=== PATIENT | female | born 1940 | race Caucasian/White ===

== ENCOUNTER 2017-10-04 03:45 | Inpatient (IN) ==
[2017-10-04] MEDS ORDERED: 0.9 % Sodium Chloride 500 ML IVC ONE (04:03)
[2017-10-04 04:14] LABS: Basophils % 0.2 %; Eosinophils # 0.2 K/mcL (0.0-0.6); Eosinophils % 2.8 %; Hematocrit 44.3 % (35.3-44.9); Hemoglobin 13.1 g/dL (11.5-15.4); Immature Granulocytes % 0.2 % (0-4); Lymphocytes # 1.8 K/mcL (0.6-4.6); Lymphocytes % 22.6 %; Mean Corpuscular HGB Conc 29.6 g/dL (31.6-35.5); Mean Corpuscular Hemoglobin 29.2 pg (28.0-33.3); Mean Corpuscular Volume 98.7 fL (83.0-100.0); Mean Platelet Volume 11.5 fL (9.4-12.4); Platelet Count 137 K/mcL (140-400); Red Blood Count 4.49 M/mcL (3.82-4.97); Red Cell Distribution Width 14.1 % (11.5-14.5); Segmented Neutrophils % 62.2 %
[2017-10-04 04:18] LABS: INR 1.5; Prothrombin Time 16.2 Seconds (9.4-12.1)
[2017-10-04 04:20] LABS: Activated Partial Thrombo Time 33.6 Seconds (26.0-36.0)
[2017-10-04 04:25] LABS: BUN/Creatinine Ratio 17 (6-26); Blood Urea Nitrogen 15 mg/dL (7-20); Calcium 11.4 mg/dL (8.6-10.8); Carbon Dioxide 29 mEq/L (19-29); Chloride 105 mEq/L (98-109); Glucose 172 mg/dL (70-99); Osmolality,Calculated 299 (280-300); Sodium 142 mEq/L (136-145); eGFR For African Americans > 60 (> 60); eGFR For Non-African Americans > 60 (> 60)
[2017-10-04 04:26] LABS: Potassium 4.7 mEq/L (3.5-4.5)
[2017-10-04 04:34] LABS: Bilirubin,Urine Negative (Negative); Blood,Urine Small (Negative); Clarity,Urine Turbid (Clear); Color,Urine Yellow (Yellow); Glucose,Urine (UA) Normal (Normal); Ketones,Urine Negative (Negative); Leukocyte Esterase,Urine Large (Negative); Nitrite,Urine Positive (Negative); Protein,Urine Trace mg/dL (Neg-Trace); Specific Gravity,Urine 1.017 (1.010-1.025); Urobilinogen,Urine Normal (Normal)
[2017-10-04 04:37] LABS: Bacteria,Urine Many per hpf (None-Few); Hyaline Casts,Urine None Seen per lpf (None-Few); Squamous Epithelial Cell,Urine Many per lpf (None-Few); WBC,Urine TNTC per hpf (0-3)
--- NOTE | 2017-10-04 04:56 | Emergency Department Note ---
Disposition Clinical Impression: Chest pain Qualifiers: Chest pain type: chest pain on breathing Qualified Code(s): R07.1 - Chest pain on breathing; R07.81 - Pleurodynia UTI (urinary tract infection) Qualifiers: Urinary tract infection type: acute cystitis Hematuria presence: with hematuria Qualified Code(s): N30.01 - Acute cystitis with hematuria Disposition: Admitted As Inpatient Condition: Fair Referrals: NONE,PCP [Non-Partnered Physician] - Forms: ED Satisfaction Letter Time of Disposition: 06:56 Chest Pain HPI - General Chief Complaint: ED Chest Pain Stated Complaint: shortness Time Seen by Provider: 10/04/17 03:51 Source: patient, EMS Mode of arrival: EMS Limitations: no limitations Vital Signs Reviewed: Yes Nursing Notes Reviewed: Yes - History of Present Illness HPI Narrative: 77-year-old female presenting to the emergency department complaining of chest pain and mild shortness of breath. Patient came [facility] She says that she woke up having this chest pain says it was about 4 out of 10 in her chest nonradiating delicate chest pressure. It is worse and she is breathing. Patient is not having the chest pain now. She also has been having a cough for the last few days as well. Patient otherwise is having no complaints. She has a history of CHF and no history of COPD. She is not complaining of any headache , blurry vision, back pain, neck pain, abdominal pain, pain with urination, change in bowel movements, pain or tenderness of the arms or legs, generalized weakness, fevers, chills, nausea, vomiting. Severity scale (1-10): 0 - Related Data Home Medications Medication Instructions Recorded Confirmed Albuterol Sulfate [Albuterol 2 puff IH Q4HR PRN 06/27/15 06/27/15 Inhaler] Canagliflozin [Invokana] 100 mg PO QAM 06/27/15 06/27/15 Furosemide [Lasix] 40 mg PO BID 06/27/15 06/27/15 Insulin Aspart Prot/Insuln Asp 12 - 25 unit SQ TID 06/27/15 06/27/15 [Novolog Mix 70-30 Flexpen Syrn] Insulin Glargine,Hum.rec.anlog 25 unit SQ HS 06/27/15 06/27/15 [Lantus Solostar] Insulin Glargine,Hum.rec.anlog 40 unit SQ QAM 06/27/15 06/27/15 [Lantus Solostar] Loratadine [Claritin] 10 mg PO QAM 06/27/15 06/27/15 Losartan [Cozaar] 50 mg PO QPM 06/27/15 06/27/15 Metoprolol [Lopressor] 12.5 mg PO BID 06/27/15 06/27/15 Multivitamin/Iron/Folic Acid 1 each PO QAM 06/27/15 06/27/15 [Centrum Complete Multivit Tab] Pramlintide Acetate [Symlinpen 120] 120 mcg SQ TID 06/27/15 06/27/15 [place] Oil/[place]-3 Fatty Acids 1,000 mg PO BID 06/27/15 06/27/15 [Fish Oil 500 mg Softgel] TraMADol [Ultram] 50 mg PO Q6HR PRN 06/27/15 06/27/15 Warfarin [Coumadin] 4 mg PO QPM 06/27/15 06/27/15 Previous Rx's Medication Instructions Recorded Doxycycline 100 mg PO BID #20 capsule 06/30/15 Doxycycline 100 mg PO BID #14 capsule 12/27/15 Doxycycline 100 mg PO BID #20 capsule 06/26/16 Allergies Allergy/AdvReac Type Severity Reaction Status Date / Time acetaminophen [From Vicodin] Allergy Hives Verified 06/27/15 18:53 ceftriaxone Allergy Hives Verified 06/27/15 18:53 cephalexin [From Keflex] Allergy Hives Verified 06/27/15 18:53 Erythromycin Base Allergy Hives Verified 06/27/15 18:24 hydrocodone [From Vicodin] Allergy Hives Verified 06/27/15 18:53 levofloxacin [From Levaquin] Allergy Hives Verified 06/27/15 18:53 Oxycodone Allergy Hives Verified 06/27/15 18:53 piperacillin Allergy Hives Verified 06/27/15 18:53 Sulfa (Sulfonamide Allergy Hives Verified 06/27/15 18:53 Antibiotics) vancomycin Allergy Hives Verified 06/27/15 18:24 gabapentin [From Neurontin] AdvReac Unconscious Verified 10/04/17 06:42 Review of Systems: 10 point review of systems done and negative unless otherwise stated in history of present illness. All systems ED: reviewed and negative except as stated. Review of Systems: As Per HPI Chest Pain PMH - Past Medical History Medical history: Reports: arthritis, atrial fibrillation, cancer, CHF, DVT, diabetes, hyperlipidemia, hypertension, thyroid disease Surgical history: Reports: breast surgery, cholecystectomy, orthopedic, other ( Left tib/fib ORIF, left ankle ORIF), other Psychiatric history: Reports: no psych history [employer]QUIPMENT MECH[employer]IC history: Reports: no [employer]MENT MECH[employer]IC history - Social History Smoking Status: Never smoker Alcohol use: Reports: none Drug use: Reports: none Physical Exam - General General appearance: alert - Head Head exam: atraumatic, normocephalic, normal inspection - Eye Eye exam: Present: normal appearance, PERRL, EOMI - ENT ENT exam: normal exam, normal oropharynx, mucous membranes moist - Neck Neck exam: Present: normal inspection, full ROM, trachea midline - Chest Chest inspection: Present: normal inspection, symmetric chest wall rise - Respiratory Respiratory exam: Present: normal lung sounds bilaterally. Absent: respiratory distress, wheezes - Cardiovascular Cardiovascular exam: Present: regular rate, normal rhythm, normal heart sounds - Abdominal Exam Abdominal exam: Present: soft, Non-Tender, normal bowel sounds. Absent: tenderness, distention, guarding, rebound, rigidity - Extremities Exam Extremities exam: Present: normal inspection, full ROM. Absent: tenderness, pedal edema - Back Exam Back exam: Present: normal inspection, full ROM. Absent: tenderness, CVA tenderness (R), CVA tenderness (L) - Neurological Exam Neurological exam: Present: alert, oriented X3 - Skin Skin exam: Present: warm, dry, intact, normal color Course Course Narrative: 77-year-old female presented to the emergency department complaining of chest pain only when she took big deep breaths. We will do basic labs including CBC, BMP, troponin as well as coags. Will get chest x-ray will also get a CT A of the chest. To rule out pulmonary embolism. We will give patient IV fluids as well as to get a urinalysis and EKG. Patient took it this plan. Disposition pending results. Vital Signs Temperature 97.6 F 10/04/17 03:48 Pulse Rate 103 10/04/17 03:48 Respiratory Rate 16 10/04/17 03:48 Blood Pressure 115/83 10/04/17 03:48 O2 Sat by Pulse Oximetry 95 10/04/17 03:48 Temperature 97.6 F 10/04/17 03:48 Pulse Rate 98 10/04/17 06:27 Respiratory Rate 20 10/04/17 06:27 Blood Pressure 119/62 10/04/17 06:27 O2 Sat by Pulse Oximetry 94 10/04/17 06:27 Oxygen Delivery Oxygen Delivery Nasal Cannula Chest Pain - MDM Narrative Medical decision making narrative: 77-year-old female presents to the emergency department complaining of chest pain as well as shortness of breath. Patient said this woke her up. Patient has a history of CHF and no other cardiac issues. We did do basic labs everything came back normal including troponin per she had a mildly elevated BNP low back area than her normal the patient is not fluid overloaded. We did do CT angios of her chest due to the patient's shortness of breath as well as body habitus causing her to be mainly immobile. There was worry for pulmonary and was him although she is on Coumadin. CT of the chest came back normal just showed cardiomegaly. Patient did have positive nitrites and leukocytes esterase on her urine so we are treating her with nitrofurantoin as she is allergic to all other medications. Patient is not having chest pain this time so we did not give her any aspirin or nitroglycerin. Patient otherwise is doing well. Spoke with the hospitalist Dr. Grande he agreed to admit the patient to their service. Due to patient's cardiac history of having heart score of 5 we felt admission was necessary for further evaluation. Patient family agree with this plan. Dr. Grande agreed to accept the patient or service patient is admitted in stable condition. Chest CTA 10/04/17 04:03 IMPRESSION: No evidence for central pulmonary embolus. Evaluation of the peripheral subsegmental vessels are obscured by respiratory motion artifact. D/ / Peewee Camejo MD / Peewee Camejo MD Interpreting Provider: Peewee Camejo MD Chest X-Ray 10/04/17 04:03 IMPRESSION: Cardiomegaly with mild pulmonary vascular congestion. D/ / Sobeida Sauer MD / Sobeida Sauer MD Interpreting Provider: Sobeida Sauer MD - Medical Records Medical records reviewed: Yes I reviewed the patient's medical records. - Lab Data Lab results reviewed: Yes I reviewed the patient's lab results. Result diagrams: 10/04/17 03:38 10/04/17 03:38 Lab Results 10/04/17 10/04/17 10/04/17 Range/Units 03:38 03:38 03:38 WBC 8.1 (4.3-11.1) K/mcL RBC 4.49 (3.82-4.97) M/mcL Hgb 13.1 (11.5-15.4) g/dL Hct 44.3 (35.3-44.9) % MCV 98.7 (83.0-100.0) fL MCH 29.2 (28.0-33.3) pg MCHC 29.6 L (31.6-35.5) g/dL RDW 14.1 (11.5-14.5) % Plt Count 137 L (140-400) K/mcL MPV 11.5 (9.4-12.4) fL Immature Gran % 0.2 (0-4) % Seg Neutrophils % 62.2 % Lymphocytes % 22.6 % Monocytes % 12.0 % Eosinophils % 2.8 % Basophils % 0.2 % Neutrophils # 5.0 (1.6-8.9) K/mcL Lymphocytes # 1.8 (0.6-4.6) K/mcL Monocytes # 1.0 (0.0-1.3) K/mcL Eosinophils # 0.2 (0.0-0.6) K/mcL Basophils # 0.0 (0.0-0.2) K/mcL PT 16.2 H (9.4-12.1) Seconds INR 1.5 APTT 33.6 (26.0-36.0) Seconds Sodium 142 (136-145) mEq/L Potassium 4.7 H (3.5-4.5) mEq/L Chloride 105 (98-109) mEq/L Carbon Dioxide 29 (19-29) mEq/L BUN 15 (7-20) mg/dL Creatinine 0.87 (0.57-1.11) mg/dL Est GFR ( Amer) > 60 (> 60) Est GFR (Non-Af Amer) > 60 (> 60) BUN/Creatinine Ratio 17 (6-26) Glucose 172 H (70-99) mg/dL Calculated Osmolality 299 (280-300) Calcium 11.4 H (8.6-10.8) mg/dL Troponin I (0-0.03) ng/mL B-Natriuretic Peptide (0-100) pg/mL Urine Color (Yellow) Urine Clarity (Clear) Urine pH (5.0-8.0) pH Units Ur Specific [place] (1.010-1.025) Urine Protein (Neg-Trace) mg/dL Urine Glucose (UA) (Normal) mg/dL Urine Ketones (Negative) mg/dL Urine Blood (Negative) Urine Nitrite (Negative) Urine Bilirubin (Negative) Urine Urobilinogen (Normal) mg/dL Ur Leukocyte Esterase (Negative) Urine Microscopic RBC (0-3) per hpf Urine Microscopic WBC (0-3) per hpf Ur Squamous Epith Cells (None-Few) per lpf Urine Bacteria (None-Few) per hpf Hyaline Casts (None-Few) per lpf Ur Culture Indicated? (NO) 10/04/17 10/04/17 10/04/17 Range/Units 03:38 03:38 04:10 WBC (4.3-11.1) K/mcL RBC (3.82-4.97) M/mcL Hgb (11.5-15.4) g/dL Hct (35.3-44.9) % MCV (83.0-100.0) fL MCH (28.0-33.3) pg MCHC (31.6-35.5) g/dL RDW (11.5-14.5) % Plt Count (140-400) K/mcL MPV (9.4-12.4) fL Immature Gran % (0-4) % Seg Neutrophils % % Lymphocytes % % Monocytes % % Eosinophils % % Basophils % % Neutrophils # (1.6-8.9) K/mcL Lymphocytes # (0.6-4.6) K/mcL Monocytes # (0.0-1.3) K/mcL Eosinophils # (0.0-0.6) K/mcL Basophils # (0.0-0.2) K/mcL PT (9.4-12.1) Seconds INR APTT (26.0-36.0) Seconds Sodium (136-145) mEq/L Potassium (3.5-4.5) mEq/L Chloride (98-109) mEq/L Carbon Dioxide (19-29) mEq/L BUN (7-20) mg/dL Creatinine (0.57-1.11) mg/dL Est GFR ( Amer) (> 60) Est GFR (Non-Af Amer) (> 60) BUN/Creatinine Ratio (6-26) Glucose (70-99) mg/dL Calculated Osmolality (280-300) Calcium (8.6-10.8) mg/dL Troponin I 0.01 (0-0.03) ng/mL B-Natriuretic Peptide 345 H (0-100) pg/mL Urine Color Yellow (Yellow) Urine Clarity Turbid A (Clear) Urine pH 6.0 (5.0-8.0) pH Units Ur Specific [place] 1.017 (1.010-1.025) Urine Protein Trace (Neg-Trace) mg/dL Urine Glucose (UA) Normal (Normal) mg/dL Urine Ketones Negative (Negative) mg/dL Urine Blood Small H (Negative) Urine Nitrite Positive A (Negative) Urine Bilirubin Negative (Negative) Urine Urobilinogen Normal (Normal) mg/dL Ur Leukocyte Esterase Large H (Negative) Urine Microscopic RBC 3-5 H (0-3) per hpf Urine Microscopic WBC TNTC H (0-3) per hpf Ur Squamous Epith Cells Many H (None-Few) per lpf Urine Bacteria Many H (None-Few) per hpf Hyaline Casts None Seen (None-Few) per lpf Ur Culture Indicated? NO (NO) - Radiology Data Radiology results reviewed: Yes I reviewed the patient's radiology results. - EKG Data EKG attestation: Yes I reviewed and interpreted this EKG. EKG results narrative: EKG done at 0 347 review myself and the attending shows atrial fibrillation at a rate of 94, QRS was 6, QTC [address] changes, no acute T-wave abnormalities, no signs of any hypertrophy or heart strain, no signs of any heart blocks, no signs of WPW/Brugada syndrome. There is no old EKG to compare with at this time. Heart Score - Score History: Moderately Suspicious EKG: Normal Age: Greater than 65 Risk Factors: Equal/Greater than 3 risk factor or history of atherosclerotic disease Troponin: Less than normal limit HEART Score Total: 5
[2017-10-04] MEDS ORDERED: Ondansetron 4 MG/2 ML VIAL IVP ONE (05:10)
--- NOTE | 2017-10-04 06:01 | Emergency Department Note ---
START Narrative - START START: I examined this patient and my medical decision-making was reviewed with the Resident Physician. I agree with the documented findings, disposition and treatment plan as described except to the extent set forth below. Findings consistent with dyspnea. Symptoms have improved since arrival. Does have nitrite positive urine. We will proceed with admission for evaluation of heart failure versus other causes of dyspnea versus nitrite positive urine with suspicion for urinary tract infection.
[2017-10-04] MEDS ORDERED: Nitrofurantoin (BID) 100 MG CAPSULE PO ONE (06:35)
[2017-10-04] MEDS ORDERED: *HR* Etomidate 20 MG/10 ML AMPUL IVP ONE (07:46)
[2017-10-04] MEDS ORDERED: *HR* Midazolam HCl 5 MG/5 ML VIAL IVP ONE (07:46)
--- NOTE | 2017-10-04 07:47 | Internal Med History&Physical ---
Date of Encounter: 10/04/17 Time of Encounter: 07:44 Assessment and Plan (1) Chest pain Current visit: Yes Status: Acute chest pain despite prolonged chest pain all night long on yet patient troponin negative will scheduled for nuclear stress test Qualifiers: Chest pain type: chest pain on breathing Qualified Code(s): R07.1 - Chest pain on breathing; R07.81 - Pleurodynia (2) UTI (urinary tract infection) Current visit: Yes Status: Acute ua consistent with uti was sent for urine culture as well as Was started on Rocephin Qualifiers: Urinary tract infection type: acute cystitis Hematuria presence: with hematuria Qualified Code(s): N30.01 - Acute cystitis with hematuria (3) Chronic venous stasis dermatitis of both lower extremities Current visit: No Status: Acute Chronic no acute cellulitis (4) Atrial fibrillation Current visit: No Status: Chronic Chronic rate is well controlled patient is already on Coumadin Qualifiers: Atrial fibrillation type: chronic Qualified Code(s): I48.2 - Chronic atrial fibrillation (5) Diabetes Current visit: No Status: Chronic Chronic start on sliding scale and continue home meds Qualifiers: Diabetes mellitus type: type 2 Diabetes mellitus complication status: without complication Diabetes mellitus termite renewal inspector insulin use: unspecified detention insulin use status Qualified Code(s): E11.9 - Type 2 diabetes mellitus without complications (6) Morbid obesity Current visit: No Status: Chronic chronic Internal Medicine - H&P: HPI Chief complaint: chest pain Admitted From: Emergency Dept Plans for Post Hospital Care: Home History of present illness: Ms. Castro is a 77 year old female Patient with multiple medical problem atrial fibrillation, hypertension, morbid obesity, obstructive sleep apnea, diabetes, history of DVT, CK D stage III, chronic venous insufficiency, breast cancer with the mastectomy, PVD. Patient admitted [facility] her skilled nursing [facility] due to chest pain and some shortness of breath. Patient say had chest pain all night long and when she arrived to emergency room placed on oxygen and the chest pain is now completely resolved CTA of the chest was done which showed no pulmonary embolism . troponin negative Past Med Surg Social Fam HX - Past Medical History Medical history: arthritis, atrial fibrillation, cancer, CHF, DVT, diabetes, hyperlipidemia, hypertension, thyroid disease Psychiatric history: no psych history - Past Surgical History Surgical History: breast surgery, cholecystectomy, orthopedic, other (Left tib/ fib ORIF, left ankle ORIF), other - Social History Smoking Status: Never smoker Smokeless Tobacco Status: No Alcohol use: none Drug use: none - Family History Mother Family Member Ethnicity: Non- Living Status: Hx Family Cancer: Yes (breast cancer) Hx Family Endocrine Disorder: No Internal Medicine - H&P: Meds Albuterol Sulfate [Albuterol Inhaler] 2 puff IH Q4HR PRN 06/27/15 [History] Furosemide [Lasix] 40 mg PO BID 06/27/15 [History] Insulin Aspart Prot/Insuln Asp [Novolog Mix 70-30 Flexpen Syrn] 11 - 15 unit SQ QID 06/27/15 [History] Insulin Glargine,Hum.rec.anlog [Lantus Solostar] 10 unit SQ HS 06/27/15 [History ] Insulin Glargine,Hum.rec.anlog [Lantus Solostar] 20 unit SQ QAM 06/27/15 [ History] Loratadine [Claritin] 10 mg PO QAM 06/27/15 [History] Losartan [Cozaar] 50 mg PO QAM 06/27/15 [History] Metoprolol [Lopressor] 12.5 mg PO BID 06/27/15 [History] Multivitamin/Iron/Folic Acid [Centrum Complete Multivit Tab] 1 each PO QAM 06/27 [History] [place] Oil/[place]-3 Fatty Acids [Fish Oil 500 mg Softgel] 1,000 mg PO BID [History] TraMADol [Ultram] 50 mg PO DAILY PRN 06/27/15 [History] Warfarin [Coumadin] 4 mg PO QPM 06/27/15 [History] Ammonium Lactate [Lac-Hydrin Five] 1 appl TP BID PRN 10/04/17 [History] Calcitriol [Rocaltrol] 0.25 mcg PO DAILY 10/04/17 [History] Cyanocobalamin (B-12) [Vitamin B12] 1,000 mcg IM QMONTH 10/04/17 [History] Ketoconazole 2% CRM [Nizoral Cream] 1 appl TP DAILY 10/04/17 [History] Menthol/Zinc Oxide [Calmoseptine Ointment Packet] 1 appl TP BID 10/04/17 [ History] Simvastatin [Zocor] 20 mg PO HS 10/04/17 [History] 3 Allergy/AdvReac Type Severity Reaction Status Date / Time acetaminophen [From Vicodin] Allergy Hives Verified 10/04/17 07:29 ceftriaxone Allergy Hives Verified 10/04/17 07:29 cephalexin [From Keflex] Allergy Hives Verified 10/04/17 07:29 Erythromycin Base Allergy Hives Verified 10/04/17 07:29 hydrocodone [From Vicodin] Allergy Hives Verified 10/04/17 07:29 levofloxacin [From Levaquin] Allergy Hives Verified 10/04/17 07:29 Oxycodone Allergy Hives Verified 10/04/17 07:29 piperacillin Allergy Hives Verified 10/04/17 07:29 Sulfa (Sulfonamide Allergy Hives Verified 10/04/17 07:29 Antibiotics) vancomycin Allergy Hives Verified 10/04/17 07:29 gabapentin [From Neurontin] AdvReac Unconscious Verified 10/04/17 07:29 All Systems PM: A 10-system review of systems was performed and is negative for pertinent findings except as documented above in the HPI. - Constitutional Constitutional: no chills, no fever(s), no night sweats - EENT Eyes: no change in vision, no discharge, no pain, no photophobia Ears: no ear discharge, no ear pain, no tinnitus Nose, mouth and throat: no dysphagia, no nasal discharge, no neck pain, no sore throat - Cardiovascular Cardiovascular ROS IM: chest pain, dyspnea, dyspnea on exertion - Respiratory Respiratory: dyspnea on exertion - Gastrointestinal Gastrointestinal: no abdominal pain, no diarrhea, no hematemesis, no hematochezia, no melena, no nausea, no vomiting - Genitourinary Genitourinary: no change in urinary stream, no dysuria, no flank pain, no hematuria - Musculoskeletal Musculoskeletal ROS IM: no numbness, no tingling - Constitutional Vitals: Temp Pulse Resp BP Pulse Ox 97.6 F 92 20 109/81 94 10/04/17 03:48 10/04/17 07:27 10/04/17 07:27 10/04/17 07:27 10/04/17 07:27 General appearance: Present: mild distress, obese - Neck Neck exam general surgery: Present: supple, trachea midline. Absent: lymphadenopathy - Respiratory Respiratory exam: Present: decreased breath sounds - Cardiovascular Cardiovascular exam: Present: irregular rhythm, systolic murmur - GI/Abdominal GI/Abdominal exam: Present: normal bowel sounds, soft, no peritoneal signs. Absent: distended, tenderness - Extremities Exam Extremities exam: Present: pedal edema, tenderness Internal Med - H&P Results - Labs CBC & Chem 7: 10/04/17 03:38 10/04/17 03:38 Labs: Short CBC 10/04/17 Range/Units 03:38 WBC 8.1 (4.3-11.1) K/mcL Hgb 13.1 (11.5-15.4) g/dL Hct 44.3 (35.3-44.9) % Plt Count 137 L (140-400) K/mcL Neutrophils # 5.0 (1.6-8.9) K/mcL BMP 10/04/17 03:38 Sodium 142 Potassium 4.7 H Chloride 105 Carbon Dioxide 29 BUN 15 Creatinine 0.87 Glucose 172 H Calcium 11.4 H Cardiac Enzymes 10/04/17 Range/Units 03:38 Troponin I 0.01 (0-0.03) ng/mL Urine 10/04/17 Range/Units 04:10 Urine Color Yellow (Yellow) Urine Clarity Turbid A (Clear) Urine pH 6.0 (5.0-8.0) pH Units Ur Specific [place] 1.017 (1.010-1.025) Urine Protein Trace (Neg-Trace) mg/dL Urine Glucose (UA) Normal (Normal) mg/dL - Impressions ITS Impressions Chest CTA 10/04/17 04:03 IMPRESSION: No evidence for central pulmonary embolus. Evaluation of the peripheral subsegmental vessels are obscured by respiratory motion artifact. D/ / Peewee Camejo MD / Peewee Camejo MD Interpreting Provider: Peewee Camejo MD Chest X-Ray 10/04/17 04:03 IMPRESSION: Cardiomegaly with mild pulmonary vascular congestion. D/ / Sobeida Sauer MD / Sobeida Sauer MD Interpreting Provider: Sobeida Sauer MD
[2017-10-04] MEDS ORDERED: Naloxone 0.4 MG/ML INJ IVP PRN ×2 (07:56→19:12)
[2017-10-04] MEDS ORDERED: *HR* Morphine 2 MG/ML SYRINGE IVP PRN ×2 (07:56→19:12)
[2017-10-04] MEDS ORDERED: Mag Hydrox/Al Hydrox/Simeth 30 ML UDC PO PRN ×2 (07:56→19:12)
[2017-10-04] MEDS ORDERED: traMADol 50 MG TABLET PO PRN ×3 (08:00→19:12)
[2017-10-04] MEDS ORDERED: Ammonium Lactate 30 APPL/225 GM BOTTLE TP PRN ×2 (08:00→19:12)
[2017-10-04] MEDS ORDERED: NON-FORMULARY MEDICATION 1 EACH EACH (Cyanocobalamin (B-12) 1,000 MCG) IM SCH (08:00)
[2017-10-04] MEDS ORDERED: Dextrose Gel 15 GM PO PRN ×4 (08:04→19:12)
[2017-10-04] MEDS ORDERED: D5% in Water 1,000 ML IVC PRN ×2 (08:04→19:12)
[2017-10-04] MEDS ORDERED: *HR* Dextrose 50 % in Water (Syg) 50 ML SYRINGE IVP PRN ×2 (08:04→19:12)
[2017-10-04] MEDS ORDERED: cefTRIAXone 1,000 MG in Water for inj. (sterile) 10 ML IVP SCH (09:00)
[2017-10-04] MEDS ORDERED: MENTHOL TP SCH (09:00)
[2017-10-04] MEDS ORDERED: (Salmon Oil/Omega-3 Fatty Acids [Fish Oil 500 Mg Soft) PO SCH (09:00)
[2017-10-04] MEDS ORDERED: Ketoconazole 2% CRM 15 GM TUBE TP SCH (09:00)
[2017-10-04] MEDS ORDERED: Multivit/Ca/Min/Fe/FA 1 TAB TABLET PO SCH (09:00)
[2017-10-04] MEDS ORDERED: ZINC OXIDE TP SCH (09:00)
[2017-10-04] MEDS ORDERED: Loratadine 10 MG TABLET PO SCH (09:00)
[2017-10-04] MEDS ORDERED: Insulin DETEMIR 100 UNIT/ML X5UNITS SQ SCH ×2 (09:30→21:00)
[2017-10-04] MEDS: Furosemide 40 MG/4 ML VIAL IVP SCH ×2 (11:10→17:10)
[2017-10-04] MEDS: Insulin LISPRO 300 UNITS/3 ML VIAL SQ SCH ×3 (11:44→22:57)
[2017-10-04 16:25] LABS: ABG Base Excess 4 mEq/L (-2 to 3); ABG HCO3 38 mEq/L (21-27); ABG Oxygen Saturation 93 % (95-98); ABG PCO2 109 mmHg (35-45); ABG PH 7.15 pH Units (7.32-7.45); ABG PO2 91 mmHg (85-104); ABG TCO2 41 mEq/L (20-26)
--- NOTE | 2017-10-04 16:54 | Pulmonology Consult Note ---
<TianaGelacio Castro - Last Filed: 10/04/17 16:51> Date of Encounter: 10/04/17 Time of Encounter: 16:51 Assessment and Plan (1) Acute respiratory failure with hypercapnia Current Visit: Yes Status: Acute Ms. Castro is a 77 year old female, known history of obstructive sleep apnea requiring BiPAP at night and morbid obesity was seen and evaluated for acute respiratory failure. pH 7.15, PCO2 109, PO2 91, bicarbonate 38. -CT angios the chest did not demonstrate any pulmonary embolism, no obvious focal airspace consolidation, sizable pleural effusion or pneumothorax. Minimal dependent atelectasis appreciated. - Upon evaluation patient required BiPAP to maintain oxygen saturations greater than 90%. Plan: - Transfer to ICU for closer more acute care in the setting of hypercapnic respiratory failure and risk of further decompensation - Continue BiPAP - recheck ABG at 1730 - Keep head of bed elevated for alveolar recruitment. - We will hold blood pressure medications and resume Lasix after patient blood pressure stabilized. (2) Obstructive sleep apnea Current Visit: No Status: Chronic Patient has known history of obstructive sleep apnea likely contributing to chronic hypercarbia and acute respiratory failure. - Continue BiPAP - We will require BiPAP while sleeping and at rest. (3) Chest pain Current Visit: Yes Status: Acute Patient was admitted with complaint of chest pain troponins have been 0.03, 0.01 , 0.01. EKG without significant findings. BNP elevated likely with contributing diastolic heart failure. Patient has no nature fibrillation with regulated rate. Echocardiogram from 2015: Impressions: Technically sub-optimal due to poor echocardiographic windows. LV function is difficult to assess even with the use of Definity echo contrast. LV function appears grossly normal. Estimated LVEF 60%. Not all myocardial segments were well visualized. Indeterminate diastolic function due to atrial fibrillation. Grossly normal RV size and systolic function. Mildly dilated left atrium. Cardiac valves were poorly visualized. No evidence of significant valvular dysfunction. No evidence of pulmonary hypertension. Plan: - EKG repeat - Echocardiogram as last was in 2014 and elevated BNP 345. Qualifiers: Chest pain type: chest pain on breathing Qualified Code(s): R07.1 - Chest pain on breathing; R07.81 - Pleurodynia (4) UTI (urinary tract infection) Current Visit: Yes Status: Acute Urinalysis concerning for urinary tract infection, culture pending. -Continue ceftriaxone IV Qualifiers: Urinary tract infection type: acute cystitis Hematuria presence: with hematuria Qualified Code(s): N30.01 - Acute cystitis with hematuria (5) Atrial fibrillation Current Visit: Yes Status: Chronic Known history of atrial fibrillation on warfarin therapy at home. - INR 1.5 Plan: - Continue rate control - Hold warfarin as patient may need invasive procedure or line placement in the setting of acute respiratory failure. - Continue cardiac monitoring. Qualifiers: Atrial fibrillation type: chronic Qualified Code(s): I48.2 - Chronic atrial fibrillation (6) Diabetes Current Visit: Yes Status: Chronic Patient known type II diabetic glucoses elevated at 172 Plan: - Continue before meals and at bedtime glucose checks - Continue Levemir 20 units in the morning, 10 units at night - Continue medium dose sliding scale. Qualifiers: Diabetes mellitus type: type 2 Diabetes mellitus complication status: without complication Diabetes mellitus manager long term care insulin use: unspecified halfway insulin use status Qualified Code(s): E11.9 - Type 2 diabetes mellitus without complications (7) Morbid obesity Current Visit: Yes Status: Chronic (8) Congestive heart failure Current Visit: Yes Status: Acute Clinical exam concerning for 90s of congestive heart failure, BNP of 345. Previous echocardiogram as described above. Plan: - Hold Lasix in the setting of hypotension - Continue optimizing cardiac medications - Repeat echocardiogram - Strict intake and output monitoring, daily weights, low sodium diet and sodium diabetic diet. (9) DVT prophylaxis Current Visit: Yes Status: Acute Subcutaneous heparin every 8 hours History of Present Illness Consult date: 10/04/17 Requesting physician: Jojo Paez Reason for consult: hypoxemia, obstructive sleep apnea Chief complaint: Acute respiratory failure History of present illness: Ms. Castro is a 77 year old female, Patient with multiple medical problem atrial fibrillation, hypertension, morbid obesity, obstructive sleep apnea, diabetes, history of DVT, CKD stage III, chronic venous insufficiency, breast cancer with the mastectomy, PVD transfer the skilled nursing traditions due to chest pain and shortness of breath. Upon arrival to the emergency department she has placed on nasal cannula oxygen and underwent CT of the chest which did not show any pulmonary embolism or any other acute abnormality. She was transferred to the general medical floor. This evening she demonstrated difficulty with maintaining oxygenation and had altered mental status. An ABG was obtained with a pH 7.15, PCO2 109, PO2 91, bicarbonate 38. She was placed on BiPAP and head of her bed was elevated which resulted in improvement in her oxygenation and mental status. She was still altered upon evaluation, she had family at bedside who says she is supposed to be using her BiPAP at night while sleeping but were unsure of her compliance prior to admission. Past Med Surg Social Fam HX - Past Medical History Medical history: arthritis, atrial fibrillation, cancer, CHF, DVT, diabetes, hyperlipidemia, hypertension, thyroid disease Psychiatric history: no psych history - Past Surgical History Surgical History: breast surgery, cholecystectomy, orthopedic, other (Left tib/ fib ORIF, left ankle ORIF), other - Social History Smoking Status: Never smoker Smokeless Tobacco Status: No Alcohol use: none Drug use: none - Family History Mother Family Member Ethnicity: Non- Living Status: Hx Family Cancer: Yes (breast cancer) Hx Family Endocrine Disorder: No Medications and Allergies Albuterol Sulfate [Albuterol Inhaler] 2 puff IH Q4HR PRN 06/27/15 [History] Furosemide [Lasix] 40 mg PO BID 06/27/15 [History] Insulin Aspart Prot/Insuln Asp [Novolog Mix 70-30 Flexpen Syrn] 11 - 15 unit SQ QID 06/27/15 [History] Insulin Glargine,Hum.rec.anlog [Lantus Solostar] 10 unit SQ HS 06/27/15 [History ] Insulin Glargine,Hum.rec.anlog [Lantus Solostar] 20 unit SQ QAM 06/27/15 [ History] Loratadine [Claritin] 10 mg PO QAM 06/27/15 [History] Losartan [Cozaar] 50 mg PO QAM 06/27/15 [History] Metoprolol [Lopressor] 12.5 mg PO BID 06/27/15 [History] Multivitamin/Iron/Folic Acid [Centrum Complete Multivit Tab] 1 each PO QAM 06/27 [History] [place] Oil/[place]-3 Fatty Acids [Fish Oil 500 mg Softgel] 1,000 mg PO BID [History] TraMADol [Ultram] 50 mg PO DAILY PRN 06/27/15 [History] Warfarin [Coumadin] 4 mg PO QPM 06/27/15 [History] Ammonium Lactate [Lac-Hydrin Five] 1 appl TP BID PRN 10/04/17 [History] Calcitriol [Rocaltrol] 0.25 mcg PO DAILY 10/04/17 [History] Cyanocobalamin (B-12) [Vitamin B12] 1,000 mcg IM QMONTH 10/04/17 [History] Ketoconazole 2% CRM [Nizoral Cream] 1 appl TP DAILY 10/04/17 [History] Menthol/Zinc Oxide [Calmoseptine Ointment Packet] 1 appl TP BID 10/04/17 [ History] Simvastatin [Zocor] 20 mg PO HS 10/04/17 [History] 3 Allergy/AdvReac Type Severity Reaction Status Date / Time acetaminophen [From Vicodin] Allergy Hives Verified 10/04/17 07:29 cephalexin [From Keflex] Allergy Hives Verified 10/04/17 07:29 Erythromycin Base Allergy Hives Verified 10/04/17 07:29 hydrocodone [From Vicodin] Allergy Hives Verified 10/04/17 07:29 levofloxacin [From Levaquin] Allergy Hives Verified 10/04/17 07:29 Oxycodone Allergy Hives Verified 10/04/17 07:29 piperacillin Allergy Hives Verified 10/04/17 07:29 Sulfa (Sulfonamide Allergy Hives Verified 10/04/17 07:29 Antibiotics) vancomycin Allergy Hives Verified 10/04/17 07:29 gabapentin [From Neurontin] AdvReac Unconscious Verified 10/04/17 07:29 ROS unobtainable: due to mental status All Systems: A 10-system review of systems was performed and is negative for pertinent findings except as documented above in the HPI. Physical Examination Vital Signs: Vital Signs, Last 4 Hours Temp Pulse Resp BP Pulse Ox 10/04/17 16:20 27 91 10/04/17 15:48 98.2 F 78 16 95/62 92 General appearance: lethargic, appears uncomfortable, other (morbidly obese. ) Eyes: nonicteric ENT: oropharynx moist Neck: supple Effort: normal Inspection: normal Auscultation: bilateral: clear Percussion: bilateral: not dull Tactile fremitus: bilateral: normal Cardiovascular: irregular rhythm Gastrointestinal: normoactive bowel sounds, non-distended Integumentary: normal Extremities: no cyanosis, no clubbing, edema (Chronic venous stasis changes bilateral.) Musculoskeletal: no deformities, ROM normal normal mental status, non-focal exam mood appropriate, affect normal Results - Laboratory Findings CBC and BMP: 10/04/17 03:38 10/04/17 03:38 ABG ABG pH 7.15 pH Units (7.32-7.45) L* 10/04/17 16:07 ABG pCO2 109 mmHg (35-45) H* 10/04/17 16:07 ABG pO2 91 mmHg (85-104) 10/04/17 16:07 ABG O2 Saturation 93 % (95-98) L 10/04/17 16:07 PT/INR, D-dimer PT 16.2 Seconds (9.4-12.1) H 10/04/17 03:38 Abnormal lab findings: Abnormal lab results MCHC 29.6 g/dL (31.6-35.5) L 10/04/17 03:38 Plt Count 137 K/mcL (140-400) L 10/04/17 03:38 PT 16.2 Seconds (9.4-12.1) H 10/04/17 03:38 ABG pH 7.15 pH Units (7.32-7.45) L* 10/04/17 16:07 ABG pCO2 109 mmHg (35-45) H* 10/04/17 16:07 ABG HCO3 38 mEq/L (21-27) H 10/04/17 16:07 ABG Total CO2 41 mEq/L (20-26) H 10/04/17 16:07 ABG O2 Saturation 93 % (95-98) L 10/04/17 16:07 ABG Base Excess 4 mEq/L (-2 to 3) H 10/04/17 16:07 Potassium 4.7 mEq/L (3.5-4.5) H 10/04/17 03:38 Glucose 172 mg/dL (70-99) H 10/04/17 03:38 Calcium 11.4 mg/dL (8.6-10.8) H 10/04/17 03:38 B-Natriuretic Peptide 345 pg/mL (0-100) H 10/04/17 03:38 Urine Clarity Turbid (Clear) A 10/04/17 04:10 Urine Blood Small (Negative) H 10/04/17 04:10 Urine Nitrite Positive (Negative) A 10/04/17 04:10 Ur Leukocyte Esterase Large (Negative) H 10/04/17 04:10 Urine Microscopic RBC 3-5 per hpf (0-3) H 10/04/17 04:10 Urine Microscopic WBC TNTC per hpf (0-3) H 10/04/17 04:10 Ur Squamous Epith Cells Many per lpf (None-Few) H 10/04/17 04:10 Urine Bacteria Many per hpf (None-Few) H 10/04/17 04:10 - Clinical Findings Intake & Output: Intake & Output 10/04/17 10/04/17 10/04/17 07:59 15:59 23:59 Intake Total 0 / 0 Output Total 0 / 0 200 / 200 Balance 0 / 0 -200 / -200 Consult Discharge Plan - Plan Referrals: Bradly Cuellar [Primary Care Provider] - <Yamil Dior - Last Filed: 10/04/17 21:22> Date of Encounter: 10/04/17 All Systems: A 10-system review of systems was performed and is negative for pertinent findings except as documented above in the HPI. Physical Examination Vital Signs: Vital Signs, Last 4 Hours Temp Pulse Resp BP Pulse Ox 10/04/17 18:30 10 97 10/04/17 16:20 27 91 10/04/17 15:48 98.2 F 78 16 95/62 92 Results - Laboratory Findings CBC and BMP: 10/04/17 03:38 10/04/17 03:38 ABG ABG pH 7.18 pH Units (7.32-7.45) L* 10/04/17 17:39 ABG pCO2 105 mmHg (35-45) H* 10/04/17 17:39 ABG pO2 88 mmHg (85-104) 10/04/17 17:39 ABG O2 Saturation 93 % (95-98) L 10/04/17 17:39 PT/INR, D-dimer PT 16.2 Seconds (9.4-12.1) H 10/04/17 03:38 Abnormal lab findings: Abnormal lab results MCHC 29.6 g/dL (31.6-35.5) L 10/04/17 03:38 Plt Count 137 K/mcL (140-400) L 10/04/17 03:38 PT 16.2 Seconds (9.4-12.1) H 10/04/17 03:38 ABG pH 7.18 pH Units (7.32-7.45) L* 10/04/17 17:39 ABG pCO2 105 mmHg (35-45) H* 10/04/17 17:39 ABG HCO3 39 mEq/L (21-27) H 10/04/17 17:39 ABG Total CO2 42 mEq/L (20-26) H 10/04/17 17:39 ABG O2 Saturation 93 % (95-98) L 10/04/17 17:39 ABG Base Excess 6 mEq/L (-2 to 3) H 10/04/17 17:39 Potassium 4.7 mEq/L (3.5-4.5) H 10/04/17 03:38 Glucose 172 mg/dL (70-99) H 10/04/17 03:38 POC Glucose 163 (58-89) H 10/04/17 18:57 Calcium 11.4 mg/dL (8.6-10.8) H 10/04/17 03:38 B-Natriuretic Peptide 345 pg/mL (0-100) H 10/04/17 03:38 Urine Clarity Turbid (Clear) A 10/04/17 04:10 Urine Blood Small (Negative) H 10/04/17 04:10 Urine Nitrite Positive (Negative) A 10/04/17 04:10 Ur Leukocyte Esterase Large (Negative) H 10/04/17 04:10 Urine Microscopic RBC 3-5 per hpf (0-3) H 10/04/17 04:10 Urine Microscopic WBC TNTC per hpf (0-3) H 10/04/17 04:10 Ur Squamous Epith Cells Many per lpf (None-Few) H 10/04/17 04:10 Urine Bacteria Many per hpf (None-Few) H 10/04/17 04:10 - Clinical Findings Intake & Output: Intake & Output 10/04/17 10/04/17 10/04/17 07:59 15:59 23:59 Intake Total 0 / 0 Output Total 0 / 0 200 / 200 Balance 0 / 0 -200 / -200 - Attending Attestation I saw the patient with the resident agree with History and Physical exam findings. Labs and Radiology were reviewed BIPAP data reviewed RESPONDER: Patient is lethargic arousable follows commands most likey due to metabolic encpehalopathy slowly her mental status improving NECK : No JVD appreciated Pulmonary : Patient is hypoxic and hypercarbic with BIPAP 18/8 slowly improving hypoxia lot better wean FIO2 to to SPO2 of 92% to continue diuresing her , no obvious large PE difficult to evaluate sub segmental PE , no evidence of air space disease Cardiac : Hemodynamically stable , ECHO 2014 showed diastolic dysfunction will repeat ECHO will diurese as tolerated Nutrition/GI: NPO PPI prophylaxis Renal : Labs reviewed Heme onc : No acute issues Endo: Diabetes on insulin Musculo skeletal / skin issues Has chronic lymphedema Disposition : To remain in ICU critically ill Code status: Full Code Family/POA: Daughter Spent 35 minutes of Critical care time in managing vital organ function and to prevent further decline .
[2017-10-04] MEDS ORDERED: Acetaminophen 325 MG TABLET PO PRN ×2 (17:07→19:12)
[2017-10-04] MEDS ORDERED: Ondansetron 4 MG/2 ML VIAL IVP PRN ×2 (17:07→19:12)
[2017-10-04] MEDS ORDERED: *HR* Heparin 5,000 UNIT/ML VIAL SQ SCH (17:30)
[2017-10-04 17:43] LABS: ABG Base Excess 6 mEq/L (-2 to 3); ABG HCO3 39 mEq/L (21-27); ABG Oxygen Saturation 93 % (95-98); ABG PCO2 105 mmHg (35-45); ABG PH 7.18 pH Units (7.32-7.45); ABG PO2 88 mmHg (85-104); ABG TCO2 42 mEq/L (20-26)
[2017-10-04] MEDS ORDERED: Warfarin perPT PO PRN (18:00)
[2017-10-04] MEDS ORDERED: *HR* Warfarin 4 MG TABLET PO SCH (18:00)
[2017-10-04] MEDS ORDERED: Ipratropium/Albuterol Neb 3 ML IH SCH (20:00)
[2017-10-04 20:20] LABS: ABG Base Excess 5 mEq/L (-2 to 3); ABG HCO3 38 mEq/L (21-27); ABG Oxygen Saturation 97 % (95-98); ABG PCO2 103 mmHg (35-45); ABG PH 7.17 pH Units (7.32-7.45); ABG PO2 116 mmHg (85-104); ABG TCO2 41 mEq/L (20-26)
[2017-10-04] MEDS: Ipratropium/Albuterol Neb 3 ML IH SCH ×2 (20:23→23:24)
[2017-10-04 20:36] LABS: Bilirubin,Urine Negative (Negative); Blood,Urine Negative (Negative); Clarity,Urine Clear (Clear); Color,Urine Yellow (Yellow); Glucose,Urine (UA) Normal (Normal); Ketones,Urine Negative (Negative); Leukocyte Esterase,Urine Small (Negative); Nitrite,Urine Negative (Negative); Protein,Urine Negative (Neg-Trace); Urobilinogen,Urine Normal (Normal)
[2017-10-04 20:39] LABS: Bacteria,Urine None Seen per hpf (None-Few); Hyaline Casts,Urine None Seen per lpf (None-Few); RBC,Urine 0-3 per hpf (0-3); Squamous Epithelial Cell,Urine Many per lpf (None-Few)
[2017-10-04] MEDS ORDERED: Insulin LISPRO 300 UNITS/3 ML VIAL SQ SCH (21:00)
[2017-10-04] MEDS ORDERED: Furosemide 40 MG/4 ML VIAL IVP ONE (21:08)
[2017-10-04] MEDS: Insulin DETEMIR 100 UNIT/ML X5UNITS SQ SCH (22:56)
[2017-10-04 23:13] LABS: ABG Base Excess 7 mEq/L (-2 to 3); ABG HCO3 40 mEq/L (21-27); ABG Oxygen Saturation 98 % (95-98); ABG PCO2 110 mmHg (35-45); ABG PH 7.17 pH Units (7.32-7.45); ABG PO2 133 mmHg (85-104); ABG TCO2 44 mEq/L (20-26)
[2017-10-05] MEDS ORDERED: *HR* Midazolam HCl 2 MG/2 ML VIAL IV ONE (00:05)
[2017-10-05] MEDS ORDERED: Lacri-Lube 3.5 GM TUBE BOTH EYES PRN (00:05)
[2017-10-05] MEDS ORDERED: *HR* Midazolam HCl 5 MG/5 ML VIAL IVP ONE (00:20)
[2017-10-05] MEDS ORDERED: *HR* Midazolam HCl 2 MG/2 ML VIAL IVP ONE (00:23)
[2017-10-05] MEDS: FentaNYL (PF) 1,000 MCG in 0.9 % Sodium Chloride 80 ML IVC SCH ×2 (00:39→14:44)
--- NOTE | 2017-10-05 01:12 | Event Note ---
Date of Encounter: 10/05/17 Time of Encounter: 01:11 Had to be intubated for persistent hypercarbia CO2 narcosis Unable to follow commands Emergent intubation
[2017-10-05 01:20] LABS: ABG Base Excess 9 mEq/L (-2 to 3); ABG HCO3 37 mEq/L (21-27); ABG Oxygen Saturation 92 % (95-98); ABG PCO2 70 mmHg (35-45); ABG PH 7.34 pH Units (7.32-7.45); ABG PO2 69 mmHg (85-104); ABG TCO2 39 mEq/L (20-26); Blood Gas Modality VC; Blood Gas VT 8 cc
--- NOTE | 2017-10-05 02:25 | Event Note ---
<Bubba Aranda - Last Filed: 10/05/17 02:18> Date of Encounter: 10/05/17 Time of Encounter: 10:11 Date: 10/04/17 Time: 22:11 Indication: IV access, altered mental status Resident: Bubba Aranda D.O. Attending: Kenan Jaffe M.D. A time-out was performed verifying correct patient, procedure, site, positioning and equipment needed. The patient was placed in slight trendelenburg position while remaining on BiPAP. The right neck was prepped and draped in normal sterile fashion. Ultrasound guidance was used during the entire procedure. 1% Lidocaine was used to anesthetize the surround skin. A 16cm triple lumen catheter was introduced into the right internal jugular vein using the Seldinger technique and under direct ultrasound guidance. The catheter was threaded smoothly over the guide wire and dark venous blood was easily obtained. Each of the 3 previously flushed lumens were easily aspirated and flushed with sterile saline. The catheter was then sutured in place and a sterile dressing was placed over the area. CXR obtained after the procedure showed the catheter to be in good position with no pneumothorax. The patient tolerated the procedure well without any immediate complications. EBL: 5cc <Kenan Jaffe - Last Filed: 10/05/17 02:31> Date of Encounter: 10/05/17 Attestation Statement - Attestation Attestation: Procedure note: Central line placement requested by the hospitalist. Dr. Aranda placed the right IJ central line with ultrasound guidance under my direct supervision. No difficulties or complication.
[2017-10-05 04:12] LABS: Hematocrit 41.7 % (35.3-44.9); Hemoglobin 12.3 g/dL (11.5-15.4); Mean Corpuscular HGB Conc 29.5 g/dL (31.6-35.5); Mean Corpuscular Hemoglobin 29.8 pg (28.0-33.3); Mean Platelet Volume 11.8 fL (9.4-12.4); Platelet Count 137 K/mcL (140-400); Red Blood Count 4.13 M/mcL (3.82-4.97); Red Cell Distribution Width 14.2 % (11.5-14.5)
[2017-10-05 04:25] LABS: BUN/Creatinine Ratio 18 (6-26); Blood Urea Nitrogen 15 mg/dL (7-20); Calcium 10.8 mg/dL (8.6-10.8); Carbon Dioxide 34 mEq/L (19-29); Chloride 102 mEq/L (98-109); Chol/HDL Ratio 3.2 (0-4.9); Cholesterol 94 mg/dL (< 200); Glucose 106 mg/dL (70-99); HDL Cholesterol 29 mg/dL (40-59); LDL Cholesterol,Calculated 50 mg/dL (0-99); Magnesium 1.6 mg/dL (1.6-2.6); Osmolality,Calculated 299 (280-300); Potassium 3.7 mEq/L (3.5-4.5); Sodium 144 mEq/L (136-145); Triglycerides 74 mg/dL (< 150); eGFR For African Americans > 60 (> 60); eGFR For Non-African Americans > 60 (> 60)
[2017-10-05] MEDS: Ipratropium/Albuterol Neb 3 ML IH SCH ×6 (04:31→23:32)
[2017-10-05 04:33] LABS: ABG Base Excess 12 mEq/L (-2 to 3); ABG HCO3 38 mEq/L (21-27); ABG Oxygen Saturation 93 % (95-98); ABG PCO2 52 mmHg (35-45); ABG PH 7.47 pH Units (7.32-7.45); ABG PO2 64 mmHg (85-104); ABG TCO2 39 mEq/L (20-26); Blood Gas Modality VC; Blood Gas PEEP 5 cm H2O; Blood Gas Respiration Rate 16; Blood Gas VT 500 cc
[2017-10-05] MEDS: Lacri-Lube 3.5 GM TUBE BOTH EYES SCH ×5 (04:39→21:07)
[2017-10-05] MEDS: Famotidine 20 MG/2 ML VIAL IVP SCH ×2 (05:23→18:18)
[2017-10-05] MEDS: *HR* Enoxaparin 40 MG/0.4 ML SYRINGE SQ SCH (05:23)
--- NOTE | 2017-10-05 06:58 | Pulmonology Progress Note ---
<OzziereaganGelacio - Last Filed: 10/05/17 10:49> Date of Encounter: 10/05/17 Time of Encounter: 06:57 Assessment and Plan (1) Acute respiratory failure with hypercapnia Current Visit: Yes Status: Acute Ms. Castro is a 77 year old female, known history of obstructive sleep apnea requiring BiPAP at night and morbid obesity was seen and evaluated for acute respiratory failure. In the late evening of 10/04/2017 her story status is not improving, CO2 elevated to 110 she required intubation and a central line to the right internal jugular. -CT angios the chest did not demonstrate any pulmonary embolism, no obvious focal airspace consolidation, sizable pleural effusion or pneumothorax. Minimal dependent atelectasis appreciated. 10/05: Patient intubated, sedated on mechanical ventilation initial blood gas this morning pH 7.47, PCO2 52, PO2 64, bicarbonate 38, oxygen saturation 93%. Chest x-ray demonstrates appropriate placement of IJ line, endotracheal tube. It is also diffuse pulmonary edema correlating with congestive heart failure exacerbation. Plan: -Continue with mechanical ventilation wean FiO2 as tolerated, plan for CPAP trial tomorrow. - Recheck ABG after adjustment of vent settings as the patient demonstrates alkalosis. - Keep head of bed elevated for alveolar recruitment. - 40 mg IV Lasix twice a day (2) Obstructive sleep apnea Current Visit: No Status: Chronic Patient has known history of obstructive sleep apnea likely contributing to chronic hypercarbia and acute respiratory failure. - Continue mechanical ventilation will require CPAP after extubation. (3) Chest pain Current Visit: Yes Status: Acute Patient was admitted with complaint of chest pain troponins have been 0.03, 0.01 , 0.01. EKG without significant findings. BNP elevated likely with contributing diastolic heart failure. Patient has no nature fibrillation with regulated rate. Echocardiogram from 2015: Impressions: Technically sub-optimal due to poor echocardiographic windows. LV function is difficult to assess even with the use of Definity echo contrast. LV function appears grossly normal. Estimated LVEF 60%. Not all myocardial segments were well visualized. Indeterminate diastolic function due to atrial fibrillation. Grossly normal RV size and systolic function. Mildly dilated left atrium. Cardiac valves were poorly visualized. No evidence of significant valvular dysfunction. No evidence of pulmonary hypertension. Plan: - Continue to monitor. Qualifiers: Chest pain type: chest pain on breathing Qualified Code(s): R07.1 - Chest pain on breathing; R07.81 - Pleurodynia (4) UTI (urinary tract infection) Current Visit: Yes Status: Acute Urinalysis concerning for urinary tract infection, culture pending. -Continue ceftriaxone IV Qualifiers: Urinary tract infection type: acute cystitis Hematuria presence: with hematuria Qualified Code(s): N30.01 - Acute cystitis with hematuria (5) Atrial fibrillation Current Visit: Yes Status: Chronic Known history of atrial fibrillation on warfarin therapy at home. Plan: - Continue rate control - Continue to hold warfarin. - Continue cardiac monitoring. Qualifiers: Atrial fibrillation type: chronic Qualified Code(s): I48.2 - Chronic atrial fibrillation (6) Diabetes Current Visit: Yes Status: Chronic Patient known type II diabetic. Plan: - Q6hr glucose checks. - Continue medium dose sliding scale. Qualifiers: Diabetes mellitus type: type 2 Diabetes mellitus complication status: without complication Diabetes mellitus senior care insulin use: unspecified senior care insulin use status Qualified Code(s): E11.9 - Type 2 diabetes mellitus without complications (7) Morbid obesity Current Visit: Yes Status: Chronic Likely contributing to current medical problems. (8) Congestive heart failure Current Visit: Yes Status: Acute Likely congestive heart failure exacerbation, echocardiogram pending for evaluation. Patient demonstrates pulmonary edema likely contributing to her worsening hypercarbic respiratory failure. Plan: - Lasix 40 mg IV twice a day - Continue Lopressor - Patient intubated and sedated we will hold statin and aspirin. Qualifiers: Qualified Code(s): I50.9 - Heart failure, unspecified (9) DVT prophylaxis Current Visit: Yes Status: Acute Subcutaneous heparin Subjective Principal diagnosis: Acute respiratory failure Interval history: Mrs. Castro is been seen and evaluated patient bedside this morning. Overnight she demonstrated worsening of respiratory status requiring endotracheal tube intubation and right internal jugular central line. She is currently mechanical ventilated and tolerating this well. Objective PUL Vital signs: Last Vital Signs Temp 98.9 F 10/05/17 04:00 Pulse 84 10/05/17 06:00 Resp 16 10/05/17 06:00 BP 114/74 10/05/17 06:00 Pulse Ox 95 10/05/17 06:00 General appearance: no acute distress Eyes: nonicteric ENT: oropharynx moist Neck: supple Effort: other (Mechanical ventilation, diffuse rhonchi) Cardiovascular: irregular rhythm Gastrointestinal: normoactive bowel sounds, non-distended Integumentary: normal Extremities: no cyanosis, edema (Bilateral lower extremity ) unable to assess due to mental status Ventilator Settings Ventilator Settings: Ventilator Settings, Last 8 Hours Ventilator Mode VC+ Ventilator Mode VC+ Ventilator Mode VC+ Ventilator Mode VC+ Ventilator Mode VC+ Ventilator Mode VC+ Ventilator Mode VC+ Ventilator Mode VC+ Ventilator Mode VC+ Ventilator Mode VC+ Ventilator Mode VC+ Ventilator Mode VC+ Ventilator Mode VC+ Ventilator Tidal Volume 500 Setting Ventilator Tidal Volume 500 Setting Ventilator Tidal Volume 500 Setting Ventilator Tidal Volume 500 Setting Ventilator Tidal Volume 500 Setting Ventilator Tidal Volume 500 Setting Ventilator Tidal Volume 500 Setting Ventilator Tidal Volume 500 Setting Ventilator Tidal Volume 500 Setting Ventilator Tidal Volume 500 Setting Ventilator Tidal Volume 500 Setting Ventilator Tidal Volume 500 Setting Ventilator Tidal Volume 500 Setting Ventilator Respiratory Rate 16 Setting Ventilator Respiratory Rate 16 Setting Ventilator Respiratory Rate 16 Setting Ventilator Respiratory Rate 16 Setting Ventilator Respiratory Rate 16 Setting Ventilator Respiratory Rate 16 Setting Ventilator Respiratory Rate 16 Setting Ventilator Respiratory Rate 16 Setting Ventilator Respiratory Rate 16 Setting Ventilator Respiratory Rate 16 Setting Ventilator Respiratory Rate 16 Setting Ventilator Respiratory Rate 16 Setting Ventilator Respiratory Rate 16 Setting Actual Respiratory Rate 16 Actual Respiratory Rate 16 Actual Respiratory Rate 16 Actual Respiratory Rate 16 Actual Respiratory Rate 16 Actual Respiratory Rate 16 Actual Respiratory Rate 16 Actual Respiratory Rate 17 Actual Respiratory Rate 16 Actual Respiratory Rate 16 Actual Respiratory Rate 16 Positive End Expiratory 5 Pressure Positive End Expiratory 5 Pressure Positive End Expiratory 5 Pressure Positive End Expiratory 5 Pressure Positive End Expiratory 5 Pressure Positive End Expiratory 5 Pressure Positive End Expiratory 5 Pressure Positive End Expiratory 5 Pressure Positive End Expiratory 5 Pressure Positive End Expiratory 5 Pressure Positive End Expiratory 5 Pressure Positive End Expiratory 5 Pressure Positive End Expiratory 5 Pressure Peak Inspiratory Airway 26 Pressure Peak Inspiratory Airway 23 Pressure Peak Inspiratory Airway 24 Pressure Peak Inspiratory Airway 27 Pressure Peak Inspiratory Airway 25 Pressure Peak Inspiratory Airway 25 Pressure Peak Inspiratory Airway 25 Pressure Peak Inspiratory Airway 24 Pressure Peak Inspiratory Airway 25 Pressure Peak Inspiratory Airway 28 Pressure Peak Inspiratory Airway 36 Pressure Results - Laboratory Findings CBC and BMP: 10/05/17 03:45 10/05/17 03:45 ABG ABG pH 7.47 pH Units (7.32-7.45) H D 10/05/17 04:29 ABG pCO2 52 mmHg (35-45) H 10/05/17 04:29 ABG pO2 64 mmHg (85-104) L 10/05/17 04:29 ABG O2 Saturation 93 % (95-98) L 10/05/17 04:29 PT/INR, D-dimer PT 16.2 Seconds (9.4-12.1) H 10/04/17 03:38 Abnormal lab findings: Abnormal lab results MCV 101.0 fL (83.0-100.0) H 10/05/17 03:45 MCHC 29.5 g/dL (31.6-35.5) L 10/05/17 03:45 Plt Count 137 K/mcL (140-400) L 10/05/17 03:45 PT 16.2 Seconds (9.4-12.1) H 10/04/17 03:38 ABG pH 7.47 pH Units (7.32-7.45) H D 10/05/17 04:29 ABG pCO2 52 mmHg (35-45) H 10/05/17 04:29 ABG pO2 64 mmHg (85-104) L 10/05/17 04:29 ABG HCO3 38 mEq/L (21-27) H 10/05/17 04:29 ABG Total CO2 39 mEq/L (20-26) H 10/05/17 04:29 ABG O2 Saturation 93 % (95-98) L 10/05/17 04:29 ABG Base Excess 12 mEq/L (-2 to 3) H 10/05/17 04:29 Carbon Dioxide 34 mEq/L (19-29) H 10/05/17 03:45 Glucose 106 mg/dL (70-99) H 10/05/17 03:45 POC Glucose 163 (58-89) H 10/04/17 18:57 B-Natriuretic Peptide 345 pg/mL (0-100) H 10/04/17 03:38 HDL Cholesterol 29 mg/dL (40-59) L 10/05/17 03:45 Ur Leukocyte Esterase Small (Negative) H 10/04/17 16:20 Urine Microscopic WBC 5-15 per hpf (0-3) H 10/04/17 16:20 Ur Squamous Epith Cells Many per lpf (None-Few) H 10/04/17 16:20 - Clinical Findings Intake & Output: Intake & Output 10/04/17 10/04/17 10/05/17 15:59 23:59 07:59 Intake Total 0 / 0 0 / 0 13.4 / 13.4 Output Total 0 / 0 200 / 200 2420 / 2420 Balance 0 / 0 -200 / -200 -2406.6 / -2406.6 Weight 150.3 kg Consult Discharge Plan - Plan Referrals: Bradly Cuellar [Primary Care Provider] - <Yamil Dior - Last Filed: 10/05/17 22:39> Date of Encounter: 10/05/17 Objective PUL Vital signs: Last Vital Signs Temp 99.9 F H 10/05/17 20:40 Pulse 106 10/05/17 22:00 Resp 16 10/05/17 22:00 BP 126/62 10/05/17 22:00 Pulse Ox 97 10/05/17 22:00 Ventilator Settings Ventilator Settings: Ventilator Settings, Last 8 Hours Ventilator Mode VC+ Ventilator Mode VC+ Ventilator Mode VC+ Ventilator Mode VC+ Ventilator Mode VC+ Ventilator Mode VC+ Ventilator Mode VC+ Ventilator Mode VC+ Ventilator Mode VC+ Ventilator Mode VC+ Ventilator Mode VC+ Ventilator Mode VC+ Ventilator Tidal Volume 400 Setting Ventilator Tidal Volume 400 Setting Ventilator Tidal Volume 400 Setting Ventilator Tidal Volume 400 Setting Ventilator Tidal Volume 400 Setting Ventilator Tidal Volume 400 Setting Ventilator Tidal Volume 400 Setting Ventilator Tidal Volume 400 Setting Ventilator Tidal Volume 400 Setting Ventilator Tidal Volume 400 Setting Ventilator Tidal Volume 400 Setting Ventilator Tidal Volume 400 Setting Ventilator Respiratory Rate 16 Setting Ventilator Respiratory Rate 16 Setting Ventilator Respiratory Rate 16 Setting Ventilator Respiratory Rate 16 Setting Ventilator Respiratory Rate 16 Setting Ventilator Respiratory Rate 16 Setting Ventilator Respiratory Rate 16 Setting Ventilator Respiratory Rate 16 Setting Ventilator Respiratory Rate 16 Setting Ventilator Respiratory Rate 16 Setting Ventilator Respiratory Rate 16 Setting Ventilator Respiratory Rate 16 Setting Actual Respiratory Rate 16 Actual Respiratory Rate 16 Actual Respiratory Rate 16 Actual Respiratory Rate 16 Actual Respiratory Rate 17 Actual Respiratory Rate 16 Actual Respiratory Rate 16 Actual Respiratory Rate 16 Actual Respiratory Rate 17 Actual Respiratory Rate 16 Actual Respiratory Rate 16 Actual Respiratory Rate 16 Positive End Expiratory 5 Pressure Positive End Expiratory 5 Pressure Positive End Expiratory 5 Pressure Positive End Expiratory 5 Pressure Positive End Expiratory 5 Pressure Positive End Expiratory 5 Pressure Positive End Expiratory 5 Pressure Positive End Expiratory 5 Pressure Positive End Expiratory 5 Pressure Positive End Expiratory 5 Pressure Positive End Expiratory 5 Pressure Positive End Expiratory 5 Pressure Peak Inspiratory Airway 25 Pressure Peak Inspiratory Airway 23 Pressure Peak Inspiratory Airway 22 Pressure Peak Inspiratory Airway 22 Pressure Peak Inspiratory Airway 22 Pressure Peak Inspiratory Airway 22 Pressure Peak Inspiratory Airway 21 Pressure Peak Inspiratory Airway 21 Pressure Peak Inspiratory Airway 20 Pressure Peak Inspiratory Airway 21 Pressure Peak Inspiratory Airway 21 Pressure Peak Inspiratory Airway 22 Pressure Results - Laboratory Findings CBC and BMP: 10/05/17 03:45 12/19/17 03:45 ABG ABG pH 7.47 pH Units (7.32-7.45) H 10/05/17 11:31 ABG pCO2 54 mmHg (35-45) H 10/05/17 11:31 ABG pO2 64 mmHg (85-104) L 10/05/17 11:31 ABG O2 Saturation 93 % (95-98) L 10/05/17 11:31 PT/INR, D-dimer PT 16.2 Seconds (9.4-12.1) H 10/04/17 03:38 Abnormal lab findings: Abnormal lab results MCV 101.0 fL (83.0-100.0) H 10/05/17 03:45 MCHC 29.5 g/dL (31.6-35.5) L 10/05/17 03:45 Plt Count 137 K/mcL (140-400) L 10/05/17 03:45 PT 16.2 Seconds (9.4-12.1) H 10/04/17 03:38 ABG pH 7.47 pH Units (7.32-7.45) H 10/05/17 11:31 ABG pCO2 54 mmHg (35-45) H 10/05/17 11:31 ABG pO2 64 mmHg (85-104) L 10/05/17 11:31 ABG HCO3 39 mEq/L (21-27) H 10/05/17 11:31 ABG Total CO2 40 mEq/L (20-26) H 10/05/17 11:31 ABG O2 Saturation 93 % (95-98) L 10/05/17 11:31 ABG Base Excess 13 mEq/L (-2 to 3) H 10/05/17 11:31 Carbon Dioxide 34 mEq/L (19-29) H 10/05/17 03:45 Glucose 106 mg/dL (70-99) H 10/05/17 03:45 POC Glucose 129 (58-89) H 10/05/17 18:23 B-Natriuretic Peptide 345 pg/mL (0-100) H 10/04/17 03:38 HDL Cholesterol 29 mg/dL (40-59) L 10/05/17 03:45 Ur Leukocyte Esterase Small (Negative) H 10/04/17 16:20 Urine Microscopic WBC 5-15 per hpf (0-3) H 10/04/17 16:20 Ur Squamous Epith Cells Many per lpf (None-Few) H 10/04/17 16:20 - Clinical Findings Intake & Output: Intake & Output 10/05/17 10/05/17 10/05/17 07:59 15:59 23:59 Intake Total 86.6 / 86.6 Output Total 650 / 650 1300 / 1300 Balance -563.4 / -563.4 -1300 / -1300 - Attending Attestation I saw the patient with the resident agree with History and Physical exam findings. Labs and Radiology were reviewed Ventilator data reviewed Adjusted TV and RR -lung protective strategy MATCH UP PERSON: Patient is sedated and ventilated will try to change to precedex and fentanyl NECK : No JVD appreciated Pulmonary : Patient is hypoxic and hypercarbic respiratory failure due to fluid overload because of diastolic heart failure Cardiac : Hemodynamically stable , will continue diuresis as tolerated Nutrition/GI: Trophic feeding .PPI prophylaxis Renal : Labs reviewed Heme onc : No acute issues Endo: Diabetes on insulin Musculo skeletal / skin issues Has chronic lymphedema Disposition : To remain in ICU critically ill Code status: Full Code Family/POA: Daughters Spent 35 minutes of Critical care time in medical decision making to maintaining vital organ function and prevent it's decline.
[2017-10-05] MEDS: Chlorhexidine Rinse 15 ML MOUTHWASH MM SCH ×2 (08:56→21:05)
[2017-10-05] MEDS ORDERED: cefTRIAXone 1,000 MG in Water for inj. (sterile) 20 ML 10 ML IVP SCH ×2 (09:00→10:30)
[2017-10-05] MEDS: Multivit/Ca/Min/Fe/FA 1 TAB TABLET PO SCH (09:05)
[2017-10-05] MEDS: Furosemide 40 MG/4 ML VIAL IVP SCH ×2 (10:05→21:05)
[2017-10-05] MEDS: Pantoprazole 40 MG VIAL IVP SCH (10:05)
[2017-10-05] MEDS: Insulin LISPRO 300 UNITS/3 ML VIAL SQ SCH ×4 (10:06→21:07)
[2017-10-05] MEDS ORDERED: cefTRIAXone 1,000 MG in Water for inj. (sterile) 10 ML IVP SCH (11:30)
[2017-10-05 11:34] LABS: ABG Base Excess 13 mEq/L (-2 to 3); ABG HCO3 39 mEq/L (21-27); ABG Oxygen Saturation 93 % (95-98); ABG PCO2 54 mmHg (35-45); ABG PH 7.47 pH Units (7.32-7.45); ABG PO2 64 mmHg (85-104); ABG TCO2 40 mEq/L (20-26); Blood Gas Modality VC; Blood Gas PEEP 5 cm H2O; Blood Gas Respiration Rate 16; Blood Gas VT 400 cc
--- NOTE | 2017-10-05 16:05 | Electrocardiograph Report ---
[place] [id number] Test Date: 2017-10-04 Pat Name: Kelly Castro Department: 104 Room: 02 Gender: F [employer]: NANCY : 1940 Requested By: Adonis Fatima Order Number: [id number] [place] MD: Adolfo Street DO Measurements Intervals [place] Rate: 94 P: OR: 0 QRS: -57 QRSD: 106 T: 28 QT: 352 QTc: 403 Interpretive Statements Baseline artifact, but rhythm appears to be atrial fibrillation LOW QRS VOLTAGE IN PRECORDIAL LEADS LEFT ANTERIOR FASCICULAR BLOCK Electronically Signed On 10-05-2017 16:04:[address] DO
[2017-10-05] MEDS: Insulin DETEMIR 100 UNIT/ML X5UNITS SQ SCH (21:04)
[2017-10-06] MEDS: Ipratropium/Albuterol Neb 3 ML IH SCH ×6 (03:12→23:19)
[2017-10-06 03:57] LABS: Basophils % 0.2 %; Eosinophils # 0.1 K/mcL (0.0-0.6); Eosinophils % 1.4 %; Hematocrit 43.2 % (35.3-44.9); Immature Granulocytes % 0.3 % (0-4); Lymphocytes # 1.8 K/mcL (0.6-4.6); Lymphocytes % 18.8 %; Mean Corpuscular HGB Conc 30.1 g/dL (31.6-35.5); Mean Corpuscular Hemoglobin 29.7 pg (28.0-33.3); Mean Corpuscular Volume 98.6 fL (83.0-100.0); Mean Platelet Volume 11.6 fL (9.4-12.4); Monocytes # 1.3 K/mcL (0.0-1.3); Monocytes % 13.9 %; Neutrophils # 6.3 K/mcL (1.6-8.9); Platelet Count 130 K/mcL (140-400); Red Blood Count 4.38 M/mcL (3.82-4.97); Red Cell Distribution Width 14.1 % (11.5-14.5); Segmented Neutrophils % 65.4 %
[2017-10-06 04:22] LABS: Alanine Aminotransferase 7 Units/L (7-52); Albumin 3.3 g/dL (3.5-5.7); Albumin/Globulin Ratio 1.2 (1.1-2.2); Alkaline Phosphatase 64 Units/L (34-104); Aspartate Amino Transferase 11 Units/L (13-39); BUN/Creatinine Ratio 19 (6-26); Bilirubin,Total 1.1 mg/dL (0.3-1.0); Blood Urea Nitrogen 18 mg/dL (8-23); Calcium 10.3 mg/dL (8.6-10.3); Carbon Dioxide 36 mEq/L (23-29); Chloride 99 mEq/L (98-107); Globulin 2.7 g/dL (2.4-3.5); Glucose 195 mg/dL (70-105); Osmolality,Calculated 303 (280-300); Potassium 3.3 mEq/L (3.5-5.1); Sodium 143 mEq/L (136-145); eGFR For African Americans > 60 (> 60); eGFR For Non-African Americans 56 (> 60)
[2017-10-06] MEDS: Lacri-Lube 3.5 GM TUBE BOTH EYES SCH ×6 (04:27→23:53)
[2017-10-06] MEDS: *HR* Enoxaparin 40 MG/0.4 ML SYRINGE SQ SCH (05:41)
[2017-10-06] MEDS: Famotidine 20 MG/2 ML VIAL IVP SCH ×2 (05:41→18:06)
--- NOTE | 2017-10-06 06:42 | Pulmonology Progress Note ---
<TianaGelacio Castro - Last Filed: 10/06/17 11:13> Date of Encounter: 10/06/17 Time of Encounter: 06:41 Assessment and Plan (1) Acute respiratory failure with hypercapnia Current Visit: Yes Status: Acute Ms. Castro is a 77 year old female, known history of obstructive sleep apnea requiring BiPAP at night and morbid obesity was seen and evaluated for acute respiratory failure. In the late evening of 10/04/2017 her story status is not improving, CO2 elevated to 110 she required intubation and a central line to the right internal jugular. -CT angios the chest did not demonstrate any pulmonary embolism, no obvious focal airspace consolidation, sizable pleural effusion or pneumothorax. Minimal dependent atelectasis appreciated. 10/05: Patient intubated, sedated on mechanical ventilation initial blood gas this morning pH 7.47, PCO2 52, PO2 64, bicarbonate 38, oxygen saturation 93%. Chest x-ray demonstrates appropriate placement of IJ line, endotracheal tube. It is also diffuse pulmonary edema correlating with congestive heart failure exacerbation. 10/06/2017: Patient is intubated, sedated in no acute distress. Tolerating mechanical ventilation with blood gas pH 7.40, PCO2 65, PO2 72, bicarbonate 40, oxygen saturation 94%. She has hypercarbic but chronic CO2 retainer and likely around baseline. Clinically she is volume overloaded with congestive heart failure, chest x-ray demonstrates stable bibasilar atelectasis/infiltrates and findings of pulmonary edema. There is concern for pneumonia and patient will be covered with broad-spectrum antibiotics. Allergy list reviewed, antibiotics include cefepime, Zyvox, Flagyl - Her cumulative output is -7520 mL's. Plan: -Continue with mechanical ventilation wean FiO2 as tolerated, - plan for CPAP trial tomorrow morning. - Keep head of bed elevated for alveolar recruitment. - Continue 40 mg IV Lasix twice a day - Start Zyvox, Flagyl, cefepime - Discontinue tramadol, monitor renal function daily. (2) Pneumonia Current Visit: Yes Status: Acute Chest x-ray concerning for congestive heart failure and possible infiltrates. Concern for pneumonia likely prior to intubation. - Start broad-spectrum antibiotics with cefepime, Zyvox and Levaquin - Patient continues to require mechanical ventilation - Plan as described above. Qualifiers: Pneumonia type: due to unspecified organism Qualified Code(s): J18.9 - Pneumonia, unspecified organism (3) Obstructive sleep apnea Current Visit: No Status: Chronic Patient has known history of obstructive sleep apnea likely contributing to chronic hypercarbia and acute respiratory failure. - Continue mechanical ventilation will require CPAP after extubation. (4) Chest pain Current Visit: Yes Status: Acute Patient was admitted with complaint of chest pain troponins have been 0.03, 0.01 , 0.01. EKG without significant findings. BNP elevated likely with contributing diastolic heart failure. Patient has no nature fibrillation with regulated rate. Echocardiogram from 2015: Impressions: Technically sub-optimal due to poor echocardiographic windows. LV function is difficult to assess even with the use of Definity echo contrast. LV function appears grossly normal. Estimated LVEF 60%. Not all myocardial segments were well visualized. Indeterminate diastolic function due to atrial fibrillation. Grossly normal RV size and systolic function. Mildly dilated left atrium. Cardiac valves were poorly visualized. No evidence of significant valvular dysfunction. No evidence of pulmonary hypertension. Plan: - Continue to monitor. Qualifiers: Chest pain type: chest pain on breathing Qualified Code(s): R07.1 - Chest pain on breathing; R07.81 - Pleurodynia (5) UTI (urinary tract infection) Current Visit: Yes Status: Acute Urinalysis concerning for urinary tract infection, culture had mixed growth. - Ceftriaxone discontinue patient placed on Cefepime - Total 2 days so far of antibiotic coverage. Qualifiers: Urinary tract infection type: acute cystitis Hematuria presence: with hematuria Qualified Code(s): N30.01 - Acute cystitis with hematuria (6) Atrial fibrillation Current Visit: Yes Status: Chronic Known history of atrial fibrillation on warfarin therapy at home. - Currently A. fib with rapid ventricular rates with heart rate around 120. - Home dose metoprolol 25 mg by mouth twice a day Plan: - Increase Lopressor to 50 mg by mouth twice a day - Continue to hold warfarin. - Continue cardiac monitoring. Qualifiers: Atrial fibrillation type: chronic Qualified Code(s): I48.2 - Chronic atrial fibrillation (7) Diabetes Current Visit: Yes Status: Chronic Patient known type II diabetic. Plan: - Q4hr glucose checks. - Continue medium dose sliding scale. - Continue Levemir Qualifiers: Diabetes mellitus type: type 2 Diabetes mellitus complication status: without complication Diabetes mellitus intermediate frame tender insulin use: unspecified intermediate frame tender insulin use status Qualified Code(s): E11.9 - Type 2 diabetes mellitus without complications (8) Morbid obesity Current Visit: Yes Status: Chronic Likely contributing to current medical problems. (9) Congestive heart failure Current Visit: Yes Status: Acute Likely congestive heart failure exacerbation, echocardiogram pending for evaluation. Patient demonstrates pulmonary edema likely contributing to her worsening hypercarbic respiratory failure. - Diuresis as discussed above. Plan: - Lasix 40 mg IV twice a day - Continue Lopressor - Patient intubated and sedated we will hold statin and aspirin. Qualifiers: Qualified Code(s): I50.9 - Heart failure, unspecified (10) DVT prophylaxis Current Visit: Yes Status: Acute Subcutaneous heparin Subjective Principal diagnosis: Acute respiratory failure Interval history: Mrs. Castro has been seen and evaluated patient bedside this morning, she is currently intubated, sedated in no acute distress. No acute events overnight. She is tolerating diuresis and demonstrating clinical improvement. Objective PUL Vital signs: Last Vital Signs Temp 99.7 F H 10/06/17 04:56 Pulse 120 10/06/17 06:00 Resp 18 10/06/17 06:00 BP 113/58 10/06/17 06:00 Pulse Ox 95 10/06/17 06:00 General appearance: no acute distress, other (Intubated and sedated) Eyes: nonicteric ENT: oropharynx moist, other (OG tube and endotracheal tube in place) Neck: supple, no lymphadenopathy, no JVD Effort: other (Correlating with mechanical ventilation) Auscultation: bilateral: rhonchi (Lung bases) Cardiovascular: irregular rhythm (Rapid ventricular rate) Gastrointestinal: normoactive bowel sounds, hypoactive bowel sounds, soft Integumentary: other (Bilateral lower extremity edema with venous stasis changes.) Extremities: no cyanosis, pink and warm, edema Musculoskeletal: no deformities unable to assess due to mental status Ventilator Settings Ventilator Settings: Ventilator Settings, Last 8 Hours Ventilator Mode VC+ Ventilator Mode VC+ Ventilator Mode VC+ Ventilator Mode VC+ Ventilator Mode VC+ Ventilator Mode VC+ Ventilator Mode VC+ Ventilator Mode VC+ Ventilator Mode VC+ Ventilator Mode VC+ Ventilator Mode VC+ Ventilator Mode VC+ Ventilator Tidal Volume 400 Setting Ventilator Tidal Volume 400 Setting Ventilator Tidal Volume 400 Setting Ventilator Tidal Volume 400 Setting Ventilator Tidal Volume 400 Setting Ventilator Tidal Volume 400 Setting Ventilator Tidal Volume 400 Setting Ventilator Tidal Volume 400 Setting Ventilator Tidal Volume 400 Setting Ventilator Tidal Volume 400 Setting Ventilator Tidal Volume 400 Setting Ventilator Tidal Volume 400 Setting Ventilator Respiratory Rate 16 Setting Ventilator Respiratory Rate 16 Setting Ventilator Respiratory Rate 16 Setting Ventilator Respiratory Rate 16 Setting Ventilator Respiratory Rate 16 Setting Ventilator Respiratory Rate 16 Setting Ventilator Respiratory Rate 16 Setting Ventilator Respiratory Rate 16 Setting Ventilator Respiratory Rate 16 Setting Ventilator Respiratory Rate 16 Setting Ventilator Respiratory Rate 16 Setting Ventilator Respiratory Rate 16 Setting Actual Respiratory Rate 16 Actual Respiratory Rate 16 Actual Respiratory Rate 16 Actual Respiratory Rate 16 Actual Respiratory Rate 16 Actual Respiratory Rate 16 Actual Respiratory Rate 16 Actual Respiratory Rate 16 Actual Respiratory Rate 16 Actual Respiratory Rate 16 Actual Respiratory Rate 16 Actual Respiratory Rate 16 Positive End Expiratory 5 Pressure Positive End Expiratory 5 Pressure Positive End Expiratory 5 Pressure Positive End Expiratory 5 Pressure Positive End Expiratory 5 Pressure Positive End Expiratory 5 Pressure Positive End Expiratory 5 Pressure Positive End Expiratory 5 Pressure Positive End Expiratory 5 Pressure Positive End Expiratory 5 Pressure Positive End Expiratory 5 Pressure Positive End Expiratory 5 Pressure Peak Inspiratory Airway 18 Pressure Peak Inspiratory Airway 18 Pressure Peak Inspiratory Airway 18 Pressure Peak Inspiratory Airway 19 Pressure Peak Inspiratory Airway 18 Pressure Peak Inspiratory Airway 24 Pressure Peak Inspiratory Airway 24 Pressure Peak Inspiratory Airway 24 Pressure Peak Inspiratory Airway 24 Pressure Peak Inspiratory Airway 24 Pressure Peak Inspiratory Airway 24 Pressure Peak Inspiratory Airway 25 Pressure Results - Laboratory Findings CBC and BMP: 10/06/17 03:35 10/06/17 03:35 ABG ABG pH 7.47 pH Units (7.32-7.45) H 10/05/17 11:31 ABG pCO2 54 mmHg (35-45) H 10/05/17 11:31 ABG pO2 64 mmHg (85-104) L 10/05/17 11:31 ABG O2 Saturation 93 % (95-98) L 10/05/17 11:31 PT/INR, D-dimer PT 16.2 Seconds (9.4-12.1) H 10/04/17 03:38 Abnormal lab findings: Abnormal lab results MCHC 30.1 g/dL (31.6-35.5) L 10/06/17 03:35 Plt Count 130 K/mcL (140-400) L 10/06/17 03:35 PT 16.2 Seconds (9.4-12.1) H 10/04/17 03:38 ABG pH 7.47 pH Units (7.32-7.45) H 10/05/17 11:31 ABG pCO2 54 mmHg (35-45) H 10/05/17 11:31 ABG pO2 64 mmHg (85-104) L 10/05/17 11:31 ABG HCO3 39 mEq/L (21-27) H 10/05/17 11:31 ABG Total CO2 40 mEq/L (20-26) H 10/05/17 11:31 ABG O2 Saturation 93 % (95-98) L 10/05/17 11:31 ABG Base Excess 13 mEq/L (-2 to 3) H 10/05/17 11:31 Potassium 3.3 mEq/L (3.5-5.1) L 10/06/17 03:35 Carbon Dioxide 36 mEq/L (23-29) H 10/06/17 03:35 Est GFR (Non-Af Amer) 56 (> 60) L 10/06/17 03:35 Glucose 195 mg/dL (70-105) H 10/06/17 03:35 POC Glucose 132 (58-89) H 10/05/17 23:17 Calculated Osmolality 303 (280-300) H 10/06/17 03:35 Total Bilirubin 1.1 mg/dL (0.3-1.0) H 10/06/17 03:35 AST 11 Units/L (13-39) L 10/06/17 03:35 B-Natriuretic Peptide 345 pg/mL (0-100) H 10/04/17 03:38 Serum Total Protein 6.0 g/dL (6.4-8.9) L 10/06/17 03:35 Albumin 3.3 g/dL (3.5-5.7) L 10/06/17 03:35 HDL Cholesterol 29 mg/dL (40-59) L 10/05/17 03:45 Ur Leukocyte Esterase Small (Negative) H 10/04/17 16:20 Urine Microscopic WBC 5-15 per hpf (0-3) H 10/04/17 16:20 Ur Squamous Epith Cells Many per lpf (None-Few) H 10/04/17 16:20 - Clinical Findings Intake & Output: Intake & Output 10/05/17 10/05/17 10/06/17 15:59 23:59 07:59 Intake Total 86.6 / 86.6 100 / 100 Output Total 650 / 650 1300 / 1300 2500 / 2500 Balance -563.4 / -563.4 -1300 / -1300 -2400 / -2400 Consult Discharge Plan - Plan Referrals: Bradly Cuellar [Primary Care Provider] - <Yamil Dior - Last Filed: 10/06/17 21:29> Date of Encounter: 10/06/17 Objective PUL Vital signs: Last Vital Signs Temp 100.2 F H 10/06/17 20:43 Pulse 94 10/06/17 21:00 Resp 16 10/06/17 21:11 BP 105/36 10/06/17 21:00 Pulse Ox 96 10/06/17 21:11 Ventilator Settings Ventilator Settings: Ventilator Settings, Last 8 Hours Ventilator Mode VC+ Ventilator Mode VC+ Ventilator Mode VC+ Ventilator Mode VC+ Ventilator Mode VC+ Ventilator Mode VC+ Ventilator Mode VC+ Ventilator Mode VC+ Ventilator Mode VC+ Ventilator Mode VC+ Ventilator Mode VC+ Ventilator Mode VC+ Ventilator Mode VC+ Ventilator Tidal Volume 400 Setting Ventilator Tidal Volume 400 Setting Ventilator Tidal Volume 400 Setting Ventilator Tidal Volume 400 Setting Ventilator Tidal Volume 400 Setting Ventilator Tidal Volume 400 Setting Ventilator Tidal Volume 400 Setting Ventilator Tidal Volume 400 Setting Ventilator Tidal Volume 400 Setting Ventilator Tidal Volume 400 Setting Ventilator Tidal Volume 400 Setting Ventilator Tidal Volume 400 Setting Ventilator Tidal Volume 400 Setting Ventilator Respiratory Rate 16 Setting Ventilator Respiratory Rate 16 Setting Ventilator Respiratory Rate 16 Setting Ventilator Respiratory Rate 16 Setting Ventilator Respiratory Rate 16 Setting Ventilator Respiratory Rate 16 Setting Ventilator Respiratory Rate 16 Setting Ventilator Respiratory Rate 16 Setting Ventilator Respiratory Rate 16 Setting Ventilator Respiratory Rate 16 Setting Ventilator Respiratory Rate 16 Setting Ventilator Respiratory Rate 16 Setting Ventilator Respiratory Rate 16 Setting Actual Respiratory Rate 16 Actual Respiratory Rate 16 Actual Respiratory Rate 16 Actual Respiratory Rate 16 Actual Respiratory Rate 22 Actual Respiratory Rate 16 Actual Respiratory Rate 16 Actual Respiratory Rate 16 Actual Respiratory Rate 16 Actual Respiratory Rate 16 Actual Respiratory Rate 16 Actual Respiratory Rate 18 Actual Respiratory Rate 24 Positive End Expiratory 5 Pressure Positive End Expiratory 5 Pressure Positive End Expiratory 5 Pressure Positive End Expiratory 5 Pressure Positive End Expiratory 5 Pressure Positive End Expiratory 5 Pressure Positive End Expiratory 5 Pressure Positive End Expiratory 5 Pressure Positive End Expiratory 5 Pressure Positive End Expiratory 5 Pressure Positive End Expiratory 5 Pressure Positive End Expiratory 5 Pressure Positive End Expiratory 5 Pressure Peak Inspiratory Airway 19 Pressure Peak Inspiratory Airway 19 Pressure Peak Inspiratory Airway 19 Pressure Peak Inspiratory Airway 19 Pressure Peak Inspiratory Airway 19 Pressure Peak Inspiratory Airway 20 Pressure Peak Inspiratory Airway 19 Pressure Peak Inspiratory Airway 19 Pressure Peak Inspiratory Airway 19 Pressure Peak Inspiratory Airway 19 Pressure Peak Inspiratory Airway 19 Pressure Peak Inspiratory Airway 18 Pressure Peak Inspiratory Airway 20 Pressure Results - Laboratory Findings CBC and BMP: 10/06/17 03:35 10/06/17 03:35 ABG ABG pH 7.40 pH Units (7.32-7.45) 10/06/17 08:44 ABG pCO2 65 mmHg (35-45) H 10/06/17 08:44 ABG pO2 72 mmHg (85-104) L 10/06/17 08:44 ABG O2 Saturation 94 % (95-98) L 10/06/17 08:44 PT/INR, D-dimer PT 16.2 Seconds (9.4-12.1) H 10/04/17 03:38 Abnormal lab findings: Abnormal lab results MCHC 30.1 g/dL (31.6-35.5) L 10/06/17 03:35 Plt Count 130 K/mcL (140-400) L 10/06/17 03:35 PT 16.2 Seconds (9.4-12.1) H 10/04/17 03:38 ABG pCO2 65 mmHg (35-45) H 10/06/17 08:44 ABG pO2 72 mmHg (85-104) L 10/06/17 08:44 ABG HCO3 40 mEq/L (21-27) H 10/06/17 08:44 ABG Total CO2 42 mEq/L (20-26) H 10/06/17 08:44 ABG O2 Saturation 94 % (95-98) L 10/06/17 08:44 ABG Base Excess 12 mEq/L (-2 to 3) H 10/06/17 08:44 Potassium 3.3 mEq/L (3.5-5.1) L 10/06/17 03:35 Carbon Dioxide 36 mEq/L (23-29) H 10/06/17 03:35 Est GFR (Non-Af Amer) 56 (> 60) L 10/06/17 03:35 Glucose 195 mg/dL (70-105) H 10/06/17 03:35 POC Glucose 193 (58-89) H 10/06/17 17:34 Calculated Osmolality 303 (280-300) H 10/06/17 03:35 Total Bilirubin 1.1 mg/dL (0.3-1.0) H 10/06/17 03:35 AST 11 Units/L (13-39) L 10/06/17 03:35 B-Natriuretic Peptide 345 pg/mL (0-100) H 10/04/17 03:38 Serum Total Protein 6.0 g/dL (6.4-8.9) L 10/06/17 03:35 Albumin 3.3 g/dL (3.5-5.7) L 10/06/17 03:35 HDL Cholesterol 29 mg/dL (40-59) L 10/05/17 03:45 Ur Leukocyte Esterase Small (Negative) H 10/04/17 16:20 Urine Microscopic WBC 5-15 per hpf (0-3) H 10/04/17 16:20 Ur Squamous Epith Cells Many per lpf (None-Few) H 10/04/17 16:20 - Clinical Findings Intake & Output: Intake & Output 10/06/17 10/06/17 10/06/17 07:59 15:59 23:59 Intake Total 100 / 100 715 / 715 20 / 20 Output Total 2650 / 2650 350 / 350 550 / 550 Balance -2550 / -2550 365 / 365 -530 / -530 - Attending Attestation I saw the patient with the resident agree with History and Physical exam findings. Labs and Radiology were reviewed Ventilator data reviewed Adjusted TV and RR -lung protective strategy SENIOR PROJECT ACCOUNTANT: Patient is sedated and ventilated now on precedex more awake and following commands NECK : No JVD appreciated Pulmonary : Patient is hypoxic and hypercarbic respiratory failure due to fluid overload because of diastolic heart failure , today lot of copious thick sputum production will hold off extubation today will give another day of diuresis and antibiotics , patient did well on spontaneous breathing trial Cardiac : Hemodynamically stable , will continue diuresis as tolerated Nutrition/GI: Trophic feeding .PPI prophylaxis Renal : Labs reviewed Heme onc : No acute issues Endo: Diabetes on insulin Musculo skeletal / skin issues Has chronic lymphedema Disposition : To remain in ICU critically ill Code status: Full Code Family/POA: Daughters Spent 33 minutes of Critical care time in medical decision making in maintaining vital organ function
[2017-10-06 08:48] LABS: ABG Base Excess 12 mEq/L (-2 to 3); ABG HCO3 40 mEq/L (21-27); ABG Oxygen Saturation 94 % (95-98); ABG PCO2 65 mmHg (35-45); ABG PO2 72 mmHg (85-104); ABG TCO2 42 mEq/L (20-26); Blood Gas Modality CPAP/PS; Blood Gas Pressure Support 10 cm H2O
[2017-10-06] MEDS: Chlorhexidine Rinse 15 ML MOUTHWASH MM SCH ×2 (09:39→20:14)
[2017-10-06] MEDS: Pantoprazole 40 MG VIAL IVP SCH (09:39)
[2017-10-06] MEDS: Furosemide 40 MG/4 ML VIAL IVP SCH ×2 (09:40→20:14)
[2017-10-06] MEDS: Multivit/Ca/Min/Fe/FA 1 TAB TABLET PO SCH (09:40)
[2017-10-06] MEDS: Insulin DETEMIR 100 UNIT/ML X5UNITS SQ SCH ×3 (09:44→20:14)
[2017-10-06] MEDS ORDERED: Cefepime HCl 2,000 MG in D5% in Water (Mini-Bag+) 100 ML IVPB SCH (10:00)
[2017-10-06] MEDS: Insulin LISPRO 300 UNITS/3 ML VIAL SQ SCH ×4 (10:15→23:53)
[2017-10-06] MEDS: MetroNIDAZOLE 500 MG/100 ML 500 MG/100 ML BAG IVPB SCH ×2 (10:43→18:06)
[2017-10-06] MEDS ORDERED: Perflutren Lipid Microsphere 1.3 ML in 0.9 % Sodium Chloride 8.7 ML IVP ONE (10:44)
[2017-10-06] MEDS ORDERED: Potassium Chloride Elixir 20 MEQ/15 ML UDC GTUBE ONE (10:50)
[2017-10-06] MEDS: Cefepime HCl 2,000 MG in Water for inj. (sterile) 20 ML 20 ML IVP SCH ×2 (11:44→18:48)
[2017-10-06] MEDS: FentaNYL (PF) 1,000 MCG in 0.9 % Sodium Chloride 80 ML IVC SCH (11:53)
[2017-10-06] MEDS: Ketoconazole 2% CRM 15 GM TUBE TP SCH ×3 (12:51→13:17)
[2017-10-07] MEDS: FentaNYL (PF) 1,000 MCG in 0.9 % Sodium Chloride 80 ML IVC SCH (00:51)
[2017-10-07] MEDS: MetroNIDAZOLE 500 MG/100 ML 500 MG/100 ML BAG IVPB SCH ×3 (01:19→17:20)
[2017-10-07] MEDS: Cefepime HCl 2,000 MG in Water for inj. (sterile) 20 ML 20 ML IVP SCH ×3 (02:28→18:34)
[2017-10-07 04:00] LABS: Basophils % 0.2 %; Eosinophils # 0.2 K/mcL (0.0-0.6); Eosinophils % 2.1 %; Hematocrit 40.9 % (35.3-44.9); Hemoglobin 12.3 g/dL (11.5-15.4); Immature Granulocytes % 0.2 % (0-4); Immature Platelets 9.2 % (1.1-6.1); Lymphocytes # 1.1 K/mcL (0.6-4.6); Mean Corpuscular HGB Conc 30.1 g/dL (31.6-35.5); Mean Corpuscular Hemoglobin 29.9 pg (28.0-33.3); Mean Corpuscular Volume 99.5 fL (83.0-100.0); Mean Platelet Volume 11.8 fL (9.4-12.4); Monocytes # 1.4 K/mcL (0.0-1.3); Monocytes % 16.2 %; Platelet Count 127 K/mcL (140-400); Red Blood Count 4.11 M/mcL (3.82-4.97); Red Cell Distribution Width 14.2 % (11.5-14.5); Segmented Neutrophils % 68.3 %
[2017-10-07] MEDS: Ipratropium/Albuterol Neb 3 ML IH SCH ×6 (04:10→23:28)
[2017-10-07] MEDS: Lacri-Lube 3.5 GM TUBE BOTH EYES SCH ×4 (04:17→14:52)
[2017-10-07 04:28] LABS: Alanine Aminotransferase 7 Units/L (7-52); Albumin/Globulin Ratio 1.1 (1.1-2.2); Alkaline Phosphatase 58 Units/L (34-104); Aspartate Amino Transferase 10 Units/L (13-39); BUN/Creatinine Ratio 19 (6-26); Blood Urea Nitrogen 19 mg/dL (8-23); Carbon Dioxide 38 mEq/L (23-29); Chloride 100 mEq/L (98-107); Globulin 2.8 g/dL (2.4-3.5); Glucose 188 mg/dL (70-105); Osmolality,Calculated 309 (280-300); Potassium 3.5 mEq/L (3.5-5.1); Sodium 146 mEq/L (136-145); Total Protein 5.8 g/dL (6.4-8.9); eGFR For African Americans > 60 (> 60); eGFR For Non-African Americans 54 (> 60)
[2017-10-07 04:36] LABS: ABG Base Excess 12 mEq/L (-2 to 3); ABG HCO3 38 mEq/L (21-27); ABG Oxygen Saturation 94 % (95-98); ABG PCO2 55 mmHg (35-45); ABG PH 7.45 pH Units (7.32-7.45); ABG PO2 70 mmHg (85-104); ABG TCO2 40 mEq/L (20-26); Blood Gas Modality ASSIST CONTROL; Blood Gas PEEP 5 cm H2O; Blood Gas Respiration Rate 16; Blood Gas VT 400 cc
[2017-10-07] MEDS: *HR* Enoxaparin 40 MG/0.4 ML SYRINGE SQ SCH (05:43)
[2017-10-07] MEDS: Famotidine 20 MG/2 ML VIAL IVP SCH (05:43)
[2017-10-07] MEDS: Insulin LISPRO 300 UNITS/3 ML VIAL SQ SCH ×4 (05:43→23:11)
--- NOTE | 2017-10-07 07:38 | Pulmonology Progress Note ---
<Gelacio Montiel Matthew - Last Filed: 10/07/17 09:35> Date of Encounter: 10/07/17 Time of Encounter: 07:37 Assessment and Plan (1) Acute respiratory failure with hypercapnia Current Visit: Yes Status: Acute Ms. Castro is a 77 year old female, known history of obstructive sleep apnea requiring BiPAP at night and morbid obesity was seen and evaluated for acute respiratory failure. In the late evening of 10/04/2017 her story status is not improving, CO2 elevated to 110 she required intubation and a central line to the right internal jugular. -CT angios the chest did not demonstrate any pulmonary embolism, no obvious focal airspace consolidation, sizable pleural effusion or pneumothorax. Minimal dependent atelectasis appreciated. 10/05: Patient intubated, sedated on mechanical ventilation initial blood gas this morning pH 7.47, PCO2 52, PO2 64, bicarbonate 38, oxygen saturation 93%. Chest x-ray demonstrates appropriate placement of IJ line, endotracheal tube. It is also diffuse pulmonary edema correlating with congestive heart failure exacerbation. 10/06/2017: Patient is intubated, sedated in no acute distress. Tolerating mechanical ventilation with blood gas pH 7.40, PCO2 65, PO2 72, bicarbonate 40, oxygen saturation 94%. She has hypercarbic but chronic CO2 retainer and likely around baseline. Clinically she is volume overloaded with congestive heart failure, chest x-ray demonstrates stable bibasilar atelectasis/infiltrates and findings of pulmonary edema. There is concern for pneumonia and patient will be covered with broad-spectrum antibiotics. Allergy list reviewed, antibiotics include cefepime, Zyvox, Flagyl - Her cumulative output is -7520 mL's. 10/07: Patient is intubated, awake and interactive. Tolerating mechanical vent well. ABG pH 7.45, PCO2 55, PO2 70, bicarbonate 38, oxygen saturation 94. Plan for CPAP trial and if tolerated potential extubation. Patient improving with diuresis, -8185 ml. Clinically and improving, continue cardiac condition giving respiratory status. Plan: -Continue with mechanical ventilation wean FiO2 as tolerated, - plan for CPAP trial today. - Keep head of bed elevated for alveolar recruitment. - Continue 40 mg IV Lasix twice a day - Continue Zyvox, Flagyl, cefepime (2) Pneumonia Current Visit: Yes Status: Acute Chest x-ray concerning for congestive heart failure and possible infiltrates. Concern for pneumonia likely prior to intubation. - Continue broad-spectrum antibiotics with cefepime, Zyvox and Levaquin - Plan as described above. Qualifiers: Pneumonia type: due to unspecified organism (3) Obstructive sleep apnea Current Visit: No Status: Chronic Patient has known history of obstructive sleep apnea likely contributing to chronic hypercarbia and acute respiratory failure. - Continue mechanical ventilation will require CPAP after extubation. (4) Chest pain Current Visit: Yes Status: Acute Patient was admitted with complaint of chest pain troponins have been 0.03, 0.01 , 0.01. EKG without significant findings. BNP elevated likely with contributing diastolic heart failure. Patient has no nature fibrillation with regulated rate. Echocardiogram from 2015: Impressions: Technically sub-optimal due to poor echocardiographic windows. LV function is difficult to assess even with the use of Definity echo contrast. LV function appears grossly normal. Estimated LVEF 60%. Not all myocardial segments were well visualized. Indeterminate diastolic function due to atrial fibrillation. Grossly normal RV size and systolic function. Mildly dilated left atrium. Cardiac valves were poorly visualized. No evidence of significant valvular dysfunction. No evidence of pulmonary hypertension. Plan: - Continue to monitor. Qualifiers: Chest pain type: chest pain on breathing Qualified Code(s): R07.1 - Chest pain on breathing; R07.81 - Pleurodynia (5) UTI (urinary tract infection) Current Visit: Yes Status: Acute Urinalysis concerning for urinary tract infection, culture had mixed growth. - Ceftriaxone discontinue patient placed on Cefepime Qualifiers: Urinary tract infection type: acute cystitis Hematuria presence: with hematuria Qualified Code(s): N30.01 - Acute cystitis with hematuria (6) Atrial fibrillation Current Visit: Yes Status: Chronic Known history of atrial fibrillation on warfarin therapy at home. - Currently A. fib with rapid ventricular rates with heart rate around 120. - Home dose metoprolol 25 mg by mouth twice a day Plan: - Increase Lopressor to 50 mg by mouth twice a day - Continue to hold warfarin, plan to restart when patient is medically stable. - Continue cardiac monitoring. Qualifiers: Atrial fibrillation type: chronic Qualified Code(s): I48.2 - Chronic atrial fibrillation (7) Diabetes Current Visit: Yes Status: Chronic Patient known type II diabetic. Plan: - Q4hr glucose checks. - Continue medium dose sliding scale. - Continue Levemir Qualifiers: Diabetes mellitus type: type 2 Diabetes mellitus complication status: without complication Diabetes mellitus remote computer terminal operator insulin use: unspecified long-term insulin use status Qualified Code(s): E11.9 - Type 2 diabetes mellitus without complications (8) Morbid obesity Current Visit: Yes Status: Chronic Likely contributing to current medical problems. (9) Congestive heart failure Current Visit: Yes Status: Acute Likely congestive heart failure exacerbation, echocardiogram pending for evaluation. Patient demonstrates pulmonary edema likely contributing to her worsening hypercarbic respiratory failure. - Diuresis as discussed above. Echocardiogram 10/05: Impressions: Technically sub-optimal due to body habitus. LVEF 55%. Despite the use of Definity, not all LV segments were well visualized. Overall LVEF appears normal. Grossly, dilated right ventricle with normal function. Indeterminate diastolic function. No obvious significant valvular dysfunction. No evidence of pulmonary hypertension identified. RVSP not well obtained and could be underestimated. Plan: - Lasix 40 mg IV twice a day - Continue Lopressor - Patient intubated and sedated we will hold statin and aspirin. (10) DVT prophylaxis Current Visit: Yes Status: Acute Subcutaneous heparin Subjective Principal diagnosis: Acute respiratory failure Interval history: Mrs. Castro has been seen and evaluated patient bedside this morning, she is currently intubated, awake and interactive. She is tolerating mechanical vent well, demonstrates understanding of questions. Plan for CPAP trial and potential extubation if tolerated. Objective PUL Vital signs: Last Vital Signs Temp 99.1 F 10/07/17 04:52 Pulse 99 10/07/17 07:12 Resp 16 10/07/17 07:00 BP 116/54 10/07/17 07:00 Pulse Ox 95 10/07/17 07:00 General appearance: no acute distress, other (Patient intubated and awake) Eyes: nonicteric ENT: oropharynx moist Neck: supple Effort: other (Correlating with mechanical ventilation) Auscultation: bilateral: rhonchi (Bilateral lung bases) Cardiovascular: irregular rhythm (Rate control) Gastrointestinal: soft, non-tender, non-distended Integumentary: normal Extremities: no cyanosis, edema (Bilateral 2+ edema.) Musculoskeletal: no deformities normal mental status, non-focal exam mood appropriate Ventilator Settings Ventilator Settings: Ventilator Settings, Last 8 Hours Ventilator Mode VC+ Ventilator Mode VC+ Ventilator Mode VC+ Ventilator Mode VC+ Ventilator Mode VC+ Ventilator Mode VC+ Ventilator Mode VC+ Ventilator Mode VC+ Ventilator Mode VC+ Ventilator Mode VC+ Ventilator Mode VC+ Ventilator Mode VC+ Ventilator Tidal Volume 400 Setting Ventilator Tidal Volume 400 Setting Ventilator Tidal Volume 400 Setting Ventilator Tidal Volume 400 Setting Ventilator Tidal Volume 400 Setting Ventilator Tidal Volume 400 Setting Ventilator Tidal Volume 400 Setting Ventilator Tidal Volume 400 Setting Ventilator Tidal Volume 400 Setting Ventilator Tidal Volume 400 Setting Ventilator Tidal Volume 400 Setting Ventilator Tidal Volume 400 Setting Ventilator Respiratory Rate 16 Setting Ventilator Respiratory Rate 16 Setting Ventilator Respiratory Rate 16 Setting Ventilator Respiratory Rate 16 Setting Ventilator Respiratory Rate 16 Setting Ventilator Respiratory Rate 16 Setting Ventilator Respiratory Rate 16 Setting Ventilator Respiratory Rate 16 Setting Ventilator Respiratory Rate 16 Setting Ventilator Respiratory Rate 16 Setting Ventilator Respiratory Rate 16 Setting Ventilator Respiratory Rate 16 Setting Actual Respiratory Rate 16 Actual Respiratory Rate 16 Actual Respiratory Rate 16 Actual Respiratory Rate 16 Actual Respiratory Rate 16 Actual Respiratory Rate 16 Actual Respiratory Rate 16 Actual Respiratory Rate 16 Actual Respiratory Rate 16 Actual Respiratory Rate 16 Actual Respiratory Rate 16 Positive End Expiratory 5 Pressure Positive End Expiratory 5 Pressure Positive End Expiratory 5 Pressure Positive End Expiratory 5 Pressure Positive End Expiratory 5 Pressure Positive End Expiratory 5 Pressure Positive End Expiratory 5 Pressure Positive End Expiratory 5 Pressure Positive End Expiratory 5 Pressure Positive End Expiratory 5 Pressure Positive End Expiratory 5 Pressure Positive End Expiratory 5 Pressure Peak Inspiratory Airway 18 Pressure Peak Inspiratory Airway 18 Pressure Peak Inspiratory Airway 22 Pressure Peak Inspiratory Airway 21 Pressure Peak Inspiratory Airway 21 Pressure Peak Inspiratory Airway 21 Pressure Peak Inspiratory Airway 21 Pressure Peak Inspiratory Airway 21 Pressure Peak Inspiratory Airway 21 Pressure Peak Inspiratory Airway 22 Pressure Peak Inspiratory Airway 21 Pressure Results - Laboratory Findings CBC and BMP: 10/07/17 03:35 10/07/17 03:35 ABG ABG pH 7.45 pH Units (7.32-7.45) 10/07/17 04:33 ABG pCO2 55 mmHg (35-45) H 10/07/17 04:33 ABG pO2 70 mmHg (85-104) L 10/07/17 04:33 ABG O2 Saturation 94 % (95-98) L 10/07/17 04:33 PT/INR, D-dimer PT 16.2 Seconds (9.4-12.1) H 10/04/17 03:38 Abnormal lab findings: Abnormal lab results MCHC 30.1 g/dL (31.6-35.5) L 10/07/17 03:35 Plt Count 127 K/mcL (140-400) L 10/07/17 03:35 Monocytes # 1.4 K/mcL (0.0-1.3) H 10/07/17 03:35 Immature Plt Fraction 9.2 % (1.1-6.1) H 10/07/17 03:35 PT 16.2 Seconds (9.4-12.1) H 10/04/17 03:38 ABG pCO2 55 mmHg (35-45) H 10/07/17 04:33 ABG pO2 70 mmHg (85-104) L 10/07/17 04:33 ABG HCO3 38 mEq/L (21-27) H 10/07/17 04:33 ABG Total CO2 40 mEq/L (20-26) H 10/07/17 04:33 ABG O2 Saturation 94 % (95-98) L 10/07/17 04:33 ABG Base Excess 12 mEq/L (-2 to 3) H 10/07/17 04:33 Sodium 146 mEq/L (136-145) H 10/07/17 03:35 Carbon Dioxide 38 mEq/L (23-29) H 10/07/17 03:35 Est GFR (Non-Af Amer) 54 (> 60) L 10/07/17 03:35 Glucose 188 mg/dL (70-105) H 10/07/17 03:35 POC Glucose 205 (58-89) H 10/07/17 05:34 Calculated Osmolality 309 (280-300) H 10/07/17 03:35 AST 10 Units/L (13-39) L 10/07/17 03:35 B-Natriuretic Peptide 345 pg/mL (0-100) H 10/04/17 03:38 Serum Total Protein 5.8 g/dL (6.4-8.9) L 10/07/17 03:35 Albumin 3.0 g/dL (3.5-5.7) L 10/07/17 03:35 HDL Cholesterol 29 mg/dL (40-59) L 10/05/17 03:45 Ur Leukocyte Esterase Small (Negative) H 10/04/17 16:20 Urine Microscopic WBC 5-15 per hpf (0-3) H 10/04/17 16:20 Ur Squamous Epith Cells Many per lpf (None-Few) H 10/04/17 16:20 - Clinical Findings Intake & Output: Intake & Output 10/06/17 10/06/1717 15:59 23:59 07:59 Intake Total 715 / 715 120 / 120 700 / 700 Output Total 350 / 350 550 / 550 1150 / 1150 Balance 365 / 365 -430 / -430 -450 / -450 Weight 142.2 kg Consult Discharge Plan - Plan Referrals: Bradly Cuellar [Primary Care Provider] - <Yamil Dior - Last Filed: 10/07/17 22:02> Date of Encounter: 10/07/17 Objective PUL Vital signs: Last Vital Signs Temp 98.1 F 10/07/17 19:00 Pulse 92 10/07/17 21:00 Resp 16 10/07/17 21:00 BP 102/46 10/07/17 21:00 Pulse Ox 95 10/07/17 21:00 Results - Laboratory Findings CBC and BMP: 10/07/17 03:35 10/07/17 03:35 ABG ABG pH 7.45 pH Units (7.32-7.45) 10/07/17 13:19 ABG pCO2 64 mmHg (35-45) H 10/07/17 13:19 ABG pO2 82 mmHg (85-104) L 10/07/17 13:19 ABG O2 Saturation 96 % (95-98) 10/07/17 13:19 PT/INR, D-dimer PT 16.2 Seconds (9.4-12.1) H 10/04/17 03:38 Abnormal lab findings: Abnormal lab results MCHC 30.1 g/dL (31.6-35.5) L 10/07/17 03:35 Plt Count 127 K/mcL (140-400) L 10/07/17 03:35 Monocytes # 1.4 K/mcL (0.0-1.3) H 10/07/17 03:35 Immature Plt Fraction 9.2 % (1.1-6.1) H 10/07/17 03:35 PT 16.2 Seconds (9.4-12.1) H 10/04/17 03:38 ABG pCO2 64 mmHg (35-45) H 10/07/17 13:19 ABG pO2 82 mmHg (85-104) L 10/07/17 13:19 ABG HCO3 44 mEq/L (21-27) H 10/07/17 13:19 ABG Total CO2 46 mEq/L (20-26) H 10/07/17 13:19 ABG Base Excess 17 mEq/L (-2 to 3) H 10/07/17 13:19 Sodium 146 mEq/L (136-145) H 10/07/17 03:35 Carbon Dioxide 38 mEq/L (23-29) H 10/07/17 03:35 Est GFR (Non-Af Amer) 54 (> 60) L 10/07/17 03:35 Glucose 188 mg/dL (70-105) H 10/07/17 03:35 POC Glucose 147 (58-89) H 10/07/17 17:26 Calculated Osmolality 309 (280-300) H 10/07/17 03:35 AST 10 Units/L (13-39) L 10/07/17 03:35 B-Natriuretic Peptide 345 pg/mL (0-100) H 10/04/17 03:38 Serum Total Protein 5.8 g/dL (6.4-8.9) L 10/07/17 03:35 Albumin 3.0 g/dL (3.5-5.7) L 10/07/17 03:35 HDL Cholesterol 29 mg/dL (40-59) L 10/05/17 03:45 Ur Leukocyte Esterase Small (Negative) H 10/04/17 16:20 Urine Microscopic WBC 5-15 per hpf (0-3) H 10/04/17 16:20 Ur Squamous Epith Cells Many per lpf (None-Few) H 10/04/17 16:20 - Clinical Findings Intake & Output: Intake & Output 10/07/17 10/07/17 10/07/17 07:59 15:59 23:59 Intake Total 745 / 745 423.75 / 423.75 120 / 120 Output Total 1150 / 1150 1375 / 1375 350 / 350 Balance -405 / -405 -951.25 / -951.25 -230 / -230 Weight 142.2 kg - Attending Attestation I saw the patient with the resident agree with History and Physical exam findings. Labs and Radiology were reviewed Ventilator data reviewed Adjusted TV and RR correct post hypercapnic alkalosis DISHWASHER PREPARER: Patient is fully conscious following commands wants the tube out , will lighten the sedation for Spontaneous breathing trial NECK : No JVD appreciated Pulmonary : Patient is hypoxic and hypercarbic respiratory failure due to fluid overload because of diastolic heart failure , also complicated by possible gram positive and negative pneumonia to continue the broad spectrum antibiotics to attempt spontaneous breathing trial if passes the trial will extubate her to BIPAP Cardiac : Hemodynamically stable , will continue diuresis as tolerated Nutrition/GI: Hold tube feeding .PPI prophylaxis Renal : Labs reviewed showed evidence of post hypercapnic metabolic alkalosis with diuresis will give one dose of acetazolamide and reduce the dose of loop diuretics Heme onc : No acute issues Endo: Diabetes on insulin Musculo skeletal / skin issues Has chronic lymphedema Disposition : To remain in ICU critically ill Code status: Full Code Family/POA: Daughters Spent 35 minutes of critical care time in medical decision making in preventing vital organ decline and maintaining vital organ function.
[2017-10-07] MEDS: Chlorhexidine Rinse 15 ML MOUTHWASH MM SCH (07:40)
[2017-10-07] MEDS: Ketoconazole 2% CRM 15 GM TUBE TP SCH (07:40)
[2017-10-07] MEDS: Pantoprazole 40 MG VIAL IVP SCH (07:41)
[2017-10-07] MEDS: Insulin DETEMIR 100 UNIT/ML X5UNITS SQ SCH ×2 (07:41→20:02)
[2017-10-07] MEDS: Furosemide 40 MG/4 ML VIAL IVP SCH (07:41)
[2017-10-07] MEDS: Multivit/Ca/Min/Fe/FA 1 TAB TABLET PO SCH (07:41)
[2017-10-07] MEDS ORDERED: Potassium Chloride Elixir 20 MEQ/15 ML UDC GTUBE ONE (09:31)
[2017-10-07 13:23] LABS: ABG Base Excess 17 mEq/L (-2 to 3); ABG HCO3 44 mEq/L (21-27); ABG Oxygen Saturation 96 % (95-98); ABG PCO2 64 mmHg (35-45); ABG PH 7.45 pH Units (7.32-7.45); ABG PO2 82 mmHg (85-104); ABG TCO2 46 mEq/L (20-26); Blood Gas Modality PS; Blood Gas PEEP 5 cm H2O; Blood Gas Pressure Support 10 cm H2O
[2017-10-08] MEDS: MetroNIDAZOLE 500 MG/100 ML 500 MG/100 ML BAG IVPB SCH ×3 (01:11→17:26)
[2017-10-08] MEDS: Cefepime HCl 2,000 MG in Water for inj. (sterile) 20 ML 20 ML IVP SCH ×3 (02:33→19:29)
[2017-10-08 03:21] LABS: Basophils % 0.2 %; Eosinophils # 0.3 K/mcL (0.0-0.6); Eosinophils % 3.2 %; Hemoglobin 12.6 g/dL (11.5-15.4); Immature Granulocytes % 0.2 % (0-4); Lymphocytes % 11.3 %; Mean Corpuscular Hemoglobin 29.9 pg (28.0-33.3); Mean Corpuscular Volume 99.8 fL (83.0-100.0); Mean Platelet Volume 12.3 fL (9.4-12.4); Monocytes # 1.4 K/mcL (0.0-1.3); Monocytes % 15.4 %; Neutrophils # 6.4 K/mcL (1.6-8.9); Platelet Count 125 K/mcL (140-400); Red Blood Count 4.21 M/mcL (3.82-4.97); Red Cell Distribution Width 14.1 % (11.5-14.5); Segmented Neutrophils % 69.7 %
[2017-10-08 03:38] LABS: Alanine Aminotransferase 7 Units/L (7-52); Albumin 2.9 g/dL (3.5-5.7); Albumin/Globulin Ratio 0.9 (1.1-2.2); Alkaline Phosphatase 57 Units/L (34-104); Aspartate Amino Transferase 12 Units/L (13-39); BUN/Creatinine Ratio 19 (6-26); Bilirubin,Total 0.9 mg/dL (0.3-1.0); Blood Urea Nitrogen 20 mg/dL (8-23); Calcium 10.2 mg/dL (8.6-10.3); Carbon Dioxide 37 mEq/L (23-29); Chloride 101 mEq/L (98-107); Globulin 3.1 g/dL (2.4-3.5); Glucose 166 mg/dL (70-105); Osmolality,Calculated 298 (280-300); Potassium 3.5 mEq/L (3.5-5.1); Sodium 141 mEq/L (136-145); eGFR For African Americans > 60 (> 60); eGFR For Non-African Americans 51 (> 60)
[2017-10-08] MEDS: Ipratropium/Albuterol Neb 3 ML IH SCH ×6 (03:41→23:41)
[2017-10-08 04:47] LABS: ABG Base Excess 11 mEq/L (-2 to 3); ABG HCO3 39 mEq/L (21-27); ABG Oxygen Saturation 95 % (95-98); ABG PCO2 62 mmHg (35-45); ABG PO2 80 mmHg (85-104); ABG TCO2 41 mEq/L (20-26); Blood Gas Modality NIV
[2017-10-08] MEDS: Insulin LISPRO 300 UNITS/3 ML VIAL SQ SCH ×4 (05:08→23:31)
[2017-10-08] MEDS: *HR* Enoxaparin 40 MG/0.4 ML SYRINGE SQ SCH (05:14)
--- NOTE | 2017-10-08 06:37 | Pulmonology Progress Note ---
<Gelacio Montiel Matthew - Last Filed: 10/08/17 11:27> Date of Encounter: 10/08/17 Time of Encounter: 06:37 Assessment and Plan (1) Acute respiratory failure with hypercapnia Current Visit: Yes Status: Acute Ms. Castro is a 77 year old female, known history of obstructive sleep apnea requiring BiPAP at night and morbid obesity was seen and evaluated for acute respiratory failure. In the late evening of 10/04/2017 her story status is not improving, CO2 elevated to 110 she required intubation and a central line to the right internal jugular. -CT angios the chest did not demonstrate any pulmonary embolism, no obvious focal airspace consolidation, sizable pleural effusion or pneumothorax. Minimal dependent atelectasis appreciated. 10/05: Patient intubated, sedated on mechanical ventilation initial blood gas this morning pH 7.47, PCO2 52, PO2 64, bicarbonate 38, oxygen saturation 93%. Chest x-ray demonstrates appropriate placement of IJ line, endotracheal tube. It is also diffuse pulmonary edema correlating with congestive heart failure exacerbation. 10/06/2017: Patient is intubated, sedated in no acute distress. Tolerating mechanical ventilation with blood gas pH 7.40, PCO2 65, PO2 72, bicarbonate 40, oxygen saturation 94%. She has hypercarbic but chronic CO2 retainer and likely around baseline. Clinically she is volume overloaded with congestive heart failure, chest x-ray demonstrates stable bibasilar atelectasis/infiltrates and findings of pulmonary edema. There is concern for pneumonia and patient will be covered with broad-spectrum antibiotics. Allergy list reviewed, antibiotics include cefepime, Zyvox, Flagyl - Her cumulative output is -7520 mL's. 10/07: Patient is intubated, awake and interactive. Tolerating mechanical vent well. ABG pH 7.45, PCO2 55, PO2 70, bicarbonate 38, oxygen saturation 94. Plan for CPAP trial and if tolerated potential extubation. Patient improving with diuresis, -8185 ml. Clinically and improving, continue cardiac condition giving respiratory status. 10.08: Patient tolerating BiPAP, did not tolerate break from BiPAP. We will continue BiPAP at this time and diuresis. Patient improving continue treating for pneumonia. Plan: -Continue BiPAP with current settings of 16/6 - Keep head of bed elevated for alveolar recruitment. - Continue 40 mg IV Lasix once a day - Continue Zyvox, Flagyl, cefepime (2) Pneumonia Current Visit: Yes Status: Acute Chest x-ray concerning for congestive heart failure and possible infiltrates. Concern for pneumonia likely prior to intubation. - Continue broad-spectrum antibiotics with cefepime, Zyvox and Levaquin - Plan as described above. Qualifiers: Pneumonia type: due to unspecified organism Qualified Code(s): J18.9 - Pneumonia, unspecified organism (3) Obstructive sleep apnea Current Visit: No Status: Chronic Patient has known history of obstructive sleep apnea likely contributing to chronic hypercarbia and acute respiratory failure. - Continue mechanical ventilation will require CPAP after extubation. (4) Chest pain Current Visit: Yes Status: Acute Patient was admitted with complaint of chest pain troponins have been 0.03, 0.01 , 0.01. EKG without significant findings. BNP elevated likely with contributing diastolic heart failure. Patient has no nature fibrillation with regulated rate. Echocardiogram from 2015: Impressions: Technically sub-optimal due to poor echocardiographic windows. LV function is difficult to assess even with the use of Definity echo contrast. LV function appears grossly normal. Estimated LVEF 60%. Not all myocardial segments were well visualized. Indeterminate diastolic function due to atrial fibrillation. Grossly normal RV size and systolic function. Mildly dilated left atrium. Cardiac valves were poorly visualized. No evidence of significant valvular dysfunction. No evidence of pulmonary hypertension. Plan: - Continue to monitor. Qualifiers: Chest pain type: chest pain on breathing Qualified Code(s): R07.1 - Chest pain on breathing; R07.81 - Pleurodynia (5) UTI (urinary tract infection) Current Visit: Yes Status: Acute Urinalysis concerning for urinary tract infection, culture had mixed growth. - Completed length of time for IV antibiotics. Continue antibiotics for pneumonia. Qualifiers: Urinary tract infection type: acute cystitis Hematuria presence: with hematuria Qualified Code(s): N30.01 - Acute cystitis with hematuria (6) Atrial fibrillation Current Visit: Yes Status: Chronic Known history of atrial fibrillation on warfarin therapy at home. - Ray controlled. Plan: - Lopressor 5 mg IV every 6 hours, oral held as patient is nothing by mouth - We will need to restart warfarin after patient can tolerate by mouth meds - Continue cardiac monitoring. Qualifiers: Atrial fibrillation type: chronic Qualified Code(s): I48.2 - Chronic atrial fibrillation (7) Diabetes Current Visit: Yes Status: Chronic Patient known type II diabetic. Plan: - Q4hr glucose checks. - Continue medium dose sliding scale. - Continue Levemir Qualifiers: Diabetes mellitus type: type 2 Diabetes mellitus complication status: without complication Diabetes mellitus nursing home insulin use: unspecified nursing home insulin use status Qualified Code(s): E11.9 - Type 2 diabetes mellitus without complications (8) Morbid obesity Current Visit: Yes Status: Chronic Likely contributing to current medical problems. (9) Congestive heart failure Current Visit: Yes Status: Acute Likely congestive heart failure exacerbation, echocardiogram pending for evaluation. Patient demonstrates pulmonary edema likely contributing to her worsening hypercarbic respiratory failure. - Diuresis as discussed above. 10/08: -9.5 L, weight down 10 kg. Echocardiogram 10/05: Impressions: Technically sub-optimal due to body habitus. LVEF 55%. Despite the use of Definity, not all LV segments were well visualized. Overall LVEF appears normal. Grossly, dilated right ventricle with normal function. Indeterminate diastolic function. No obvious significant valvular dysfunction. No evidence of pulmonary hypertension identified. RVSP not well obtained and could be underestimated. Plan: - Lasix 40 mg IV daily - Continue Lopressor - Patient intubated and sedated we will hold statin and aspirin. Qualifiers: Qualified Code(s): I50.9 - Heart failure, unspecified (10) DVT prophylaxis Current Visit: Yes Status: Acute Subcutaneous Lovenox Subjective Principal diagnosis: Acute respiratory failure Interval history: Mrs. Castro has been seen and evaluated patient bedside this morning, she had a trial break from her BiPAP this morning that resulted in hypoxia required replacement of BiPAP with settings of 16/6. She is altered and having difficulty with swallowing. No other acute events overnight. Objective PUL Vital signs: Last Vital Signs Temp 97.1 F L 10/08/17 03:00 Pulse 81 10/08/17 06:00 Resp 16 10/08/17 06:00 BP 125/53 10/08/17 06:00 Pulse Ox 95 10/08/17 06:00 General appearance: no acute distress, other (On BiPAP) Eyes: nonicteric ENT: oropharynx moist Neck: supple Auscultation: bilateral: rhonchi (Bilateral lung bases) Cardiovascular: irregular rhythm Gastrointestinal: hypoactive bowel sounds Extremities: no cyanosis, pink and warm, edema Results - Laboratory Findings CBC and BMP: 12/22/17 03:12 10/08/17 03:12 ABG ABG pH 7.40 pH Units (7.32-7.45) 10/08/17 04:42 ABG pCO2 62 mmHg (35-45) H 10/08/17 04:42 ABG pO2 80 mmHg (85-104) L 10/08/17 04:42 ABG O2 Saturation 95 % (95-98) 10/08/17 04:42 PT/INR, D-dimer PT 16.2 Seconds (9.4-12.1) H 10/04/17 03:38 Abnormal lab findings: Abnormal lab results MCHC 30.0 g/dL (31.6-35.5) L 10/08/17 03:12 Plt Count 125 K/mcL (140-400) L 10/08/17 03:12 Monocytes # 1.4 K/mcL (0.0-1.3) H 10/08/17 03:12 Immature Plt Fraction 9.2 % (1.1-6.1) H 10/07/17 03:35 PT 16.2 Seconds (9.4-12.1) H 10/04/17 03:38 ABG pCO2 62 mmHg (35-45) H 10/08/17 04:42 ABG pO2 80 mmHg (85-104) L 10/08/17 04:42 ABG HCO3 39 mEq/L (21-27) H 10/08/17 04:42 ABG Total CO2 41 mEq/L (20-26) H 10/08/17 04:42 ABG Base Excess 11 mEq/L (-2 to 3) H 10/08/17 04:42 Carbon Dioxide 37 mEq/L (23-29) H 10/08/17 03:12 Est GFR (Non-Af Amer) 51 (> 60) L 10/08/17 03:12 Glucose 166 mg/dL (70-105) H 10/08/17 03:12 POC Glucose 140 (58-89) H 10/08/17 05:07 AST 12 Units/L (13-39) L 10/08/17 03:12 B-Natriuretic Peptide 345 pg/mL (0-100) H 10/04/17 03:38 Serum Total Protein 6.0 g/dL (6.4-8.9) L 10/08/17 03:12 Albumin 2.9 g/dL (3.5-5.7) L 10/08/17 03:12 Albumin/Globulin Ratio 0.9 (1.1-2.2) L 10/08/17 03:12 HDL Cholesterol 29 mg/dL (40-59) L 10/05/17 03:45 Ur Leukocyte Esterase Small (Negative) H 10/04/17 16:20 Urine Microscopic WBC 5-15 per hpf (0-3) H 10/04/17 16:20 Ur Squamous Epith Cells Many per lpf (None-Few) H 10/04/17 16:20 - Clinical Findings Intake & Output: Intake & Output 10/07/17 10/07/17 10/08/17 15:59 23:59 07:59 Intake Total 423.75 / 423.75 120 / 120 420 / 420 Output Total 1375 / 1375 650 / 650 200 / 200 Balance -951.25 / -951.25 -530 / -530 220 / 220 Weight 140.9 kg Consult Discharge Plan - Plan Referrals: Bradly Cuellar [Primary Care Provider] - <Yamil Dior - Last Filed: 10/08/17 22:07> Date of Encounter: 10/08/17 Objective PUL Vital signs: Last Vital Signs Temp 98.9 F 10/08/17 19:05 Pulse 103 10/08/17 21:00 Resp 14 10/08/17 21:00 BP 125/61 10/08/17 21:00 Pulse Ox 98 10/08/17 21:00 Results - Laboratory Findings CBC and BMP: 10/08/17 19:35 10/08/17 19:35 ABG ABG pH 7.39 pH Units (7.32-7.45) 10/08/17 18:53 ABG pCO2 63 mmHg (35-45) H 10/08/17 18:53 ABG pO2 77 mmHg (85-104) L 10/08/17 18:53 ABG O2 Saturation 94 % (95-98) L 10/08/17 18:53 PT/INR, D-dimer PT 16.2 Seconds (9.4-12.1) H 10/04/17 03:38 Abnormal lab findings: Abnormal lab results MCHC 30.1 g/dL (31.6-35.5) L 10/08/17 19:35 Plt Count 123 K/mcL (140-400) L 10/08/17 19:35 Monocytes # 1.4 K/mcL (0.0-1.3) H 10/08/17 19:35 Immature Plt Fraction 9.2 % (1.1-6.1) H 10/07/17 03:35 PT 16.2 Seconds (9.4-12.1) H 10/04/17 03:38 ABG pCO2 63 mmHg (35-45) H 10/08/17 18:53 ABG pO2 77 mmHg (85-104) L 10/08/17 18:53 ABG HCO3 38 mEq/L (21-27) H 10/08/17 18:53 ABG Total CO2 40 mEq/L (20-26) H 10/08/17 18:53 ABG O2 Saturation 94 % (95-98) L 10/08/17 18:53 ABG Base Excess 10 mEq/L (-2 to 3) H 10/08/17 18:53 Potassium 3.2 mEq/L (3.5-5.1) L 10/08/17 19:35 Carbon Dioxide 37 mEq/L (23-29) H 10/08/17 19:35 Est GFR (Non-Af Amer) 50 (> 60) L 10/08/17 19:35 Glucose 172 mg/dL (70-105) H 10/08/17 19:35 POC Glucose 144 (58-89) H 10/08/17 17:29 Calculated Osmolality 303 (280-300) H 10/08/17 19:35 Venous Ioniz Calcium 1.38 mmol/L (1.15-1.35) H 10/08/17 19:48 AST 12 Units/L (13-39) L 10/08/17 03:12 B-Natriuretic Peptide 345 pg/mL (0-100) H 10/04/17 03:38 Serum Total Protein 6.0 g/dL (6.4-8.9) L 10/08/17 03:12 Albumin 2.9 g/dL (3.5-5.7) L 10/08/17 03:12 Albumin/Globulin Ratio 0.9 (1.1-2.2) L 10/08/17 03:12 HDL Cholesterol 29 mg/dL (40-59) L 10/05/17 03:45 Ur Leukocyte Esterase Small (Negative) H 10/04/17 16:20 Urine Microscopic WBC 5-15 per hpf (0-3) H 10/04/17 16:20 Ur Squamous Epith Cells Many per lpf (None-Few) H 10/04/17 16:20 - Clinical Findings Intake & Output: Intake & Output 10/08/17 10/08/17 10/08/17 07:59 15:59 23:59 Intake Total 420 / 420 420 / 420 Output Total 200 / 200 925 / 925 150 / 150 Balance 220 / 220 -505 / -505 -150 / -150 Weight 140.9 kg - Attending Attestation I saw the patient with the resident agree with History and Physical exam findings. 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: Patient is arousable following commands biut she is on and off lethargic there is no significant metabolic decompensation and can due to akinetic delirium , if continues to worsen will get CT head NECK : No JVD appreciated Pulmonary : Patient is hypoxic and hypercarbic respiratory failure due to fluid overload because of diastolic heart failure , also complicated by pneumonia to continue antibiotics patient is still BIPAP dependent will continue diuresis Cardiac : Hemodynamically stable , will continue diuresis as tolerated she is 8 -9 litres negative Nutrition/GI: NPO .PPI prophylaxis Renal : Labs reviewed , patient is nearing her limit diuresis will slow head down will give once daily Heme onc : No acute issues Endo: Diabetes on insulin Musculo skeletal / skin issues Has chronic lymphedema Disposition : To remain in ICU critically ill Code status: Full Code Family/POA: Daughters
[2017-10-08] MEDS: Multivit/Ca/Min/Fe/FA 1 TAB TABLET PO SCH (08:45)
[2017-10-08] MEDS: Furosemide 40 MG/4 ML VIAL IVP SCH (08:45)
[2017-10-08] MEDS: Insulin DETEMIR 100 UNIT/ML X5UNITS SQ SCH ×4 (08:46→23:34)
[2017-10-08] MEDS: Pantoprazole 40 MG VIAL IVP SCH (08:46)
[2017-10-08] MEDS: Ketoconazole 2% CRM 15 GM TUBE TP SCH (08:46)
[2017-10-08] MEDS: *HR* Metoprolol 5 MG/5 ML VIAL IVP SCH ×3 (10:51→23:26)
[2017-10-08] MEDS: Bisacodyl 10 MG RECTAL SUPPOSITORY RC SCH (14:54)
[2017-10-08 18:59] LABS: ABG Base Excess 10 mEq/L (-2 to 3); ABG HCO3 38 mEq/L (21-27); ABG Oxygen Saturation 94 % (95-98); ABG PCO2 63 mmHg (35-45); ABG PH 7.39 pH Units (7.32-7.45); ABG PO2 77 mmHg (85-104); ABG TCO2 40 mEq/L (20-26); Blood Gas PEEP 6 cm H2O; Blood Gas Pressure Support 16 cm H2O
[2017-10-08 19:49] LABS: Basophils % 0.2 %; Eosinophils # 0.3 K/mcL (0.0-0.6); Eosinophils % 4.1 %; Hematocrit 40.9 % (35.3-44.9); Hemoglobin 12.3 g/dL (11.5-15.4); Immature Granulocytes % 0.2 % (0-4); Lymphocytes # 1.2 K/mcL (0.6-4.6); Lymphocytes % 14.4 %; Mean Corpuscular HGB Conc 30.1 g/dL (31.6-35.5); Mean Corpuscular Hemoglobin 29.9 pg (28.0-33.3); Mean Corpuscular Volume 99.3 fL (83.0-100.0); Mean Platelet Volume 11.8 fL (9.4-12.4); Monocytes # 1.4 K/mcL (0.0-1.3); Monocytes % 16.6 %; Neutrophils # 5.3 K/mcL (1.6-8.9); Platelet Count 123 K/mcL (140-400); Red Blood Count 4.12 M/mcL (3.82-4.97); Red Cell Distribution Width 14.1 % (11.5-14.5); Segmented Neutrophils % 64.5 %
[2017-10-08 19:53] LABS: VBG Ionized Calcium 1.38 mmol/L (1.15-1.35)
[2017-10-08 20:05] LABS: BUN/Creatinine Ratio 20 (6-26); Blood Urea Nitrogen 21 mg/dL (8-23); Calcium 10.3 mg/dL (8.6-10.3); Carbon Dioxide 37 mEq/L (23-29); Chloride 101 mEq/L (98-107); Glucose 172 mg/dL (70-105); Magnesium 1.8 mg/dL (1.6-2.6); Osmolality,Calculated 303 (280-300); Phosphorous 2.8 mg/dL (2.7-4.5); Potassium 3.2 mEq/L (3.5-5.1); Sodium 143 mEq/L (136-145); eGFR For African Americans > 60 (> 60); eGFR For Non-African Americans 50 (> 60)
[2017-10-09] MEDS: MetroNIDAZOLE 500 MG/100 ML 500 MG/100 ML BAG IVPB SCH ×3 (01:32→17:50)
[2017-10-09] MEDS: Cefepime HCl 2,000 MG in Water for inj. (sterile) 20 ML 20 ML IVP SCH ×3 (03:31→17:50)
[2017-10-09] MEDS: Ipratropium/Albuterol Neb 3 ML IH SCH ×6 (03:44→23:43)
[2017-10-09 03:47] LABS: ABG Base Excess 10 mEq/L (-2 to 3); ABG HCO3 39 mEq/L (21-27); ABG Oxygen Saturation 88 % (95-98); ABG PCO2 68 mmHg (35-45); ABG PH 7.36 pH Units (7.32-7.45); ABG PO2 59 mmHg (85-104); ABG TCO2 41 mEq/L (20-26)
[2017-10-09 04:43] LABS: Basophils % 0.2 %; Eosinophils # 0.4 K/mcL (0.0-0.6); Eosinophils % 5.1 %; Hematocrit 41.3 % (35.3-44.9); Hemoglobin 12.1 g/dL (11.5-15.4); Immature Granulocytes % 0.4 % (0-4); Lymphocytes # 1.4 K/mcL (0.6-4.6); Lymphocytes % 16.7 %; Mean Corpuscular HGB Conc 29.3 g/dL (31.6-35.5); Mean Corpuscular Hemoglobin 29.4 pg (28.0-33.3); Mean Corpuscular Volume 100.5 fL (83.0-100.0); Monocytes # 1.4 K/mcL (0.0-1.3); Monocytes % 17.2 %; Platelet Count 130 K/mcL (140-400); Red Blood Count 4.11 M/mcL (3.82-4.97); Red Cell Distribution Width 14.1 % (11.5-14.5); Segmented Neutrophils % 60.4 %
[2017-10-09 05:00] LABS: Alanine Aminotransferase 9 Units/L (7-52); Albumin 2.8 g/dL (3.5-5.7); Albumin/Globulin Ratio 0.9 (1.1-2.2); Alkaline Phosphatase 53 Units/L (34-104); Aspartate Amino Transferase 15 Units/L (13-39); BUN/Creatinine Ratio 23 (6-26); Bilirubin,Total 0.7 mg/dL (0.3-1.0); Blood Urea Nitrogen 24 mg/dL (8-23); Calcium 10.2 mg/dL (8.6-10.3); Carbon Dioxide 36 mEq/L (23-29); Chloride 102 mEq/L (98-107); Glucose 138 mg/dL (70-105); Osmolality,Calculated 300 (280-300); Potassium 3.2 mEq/L (3.5-5.1); Sodium 142 mEq/L (136-145); Total Protein 5.8 g/dL (6.4-8.9); eGFR For African Americans > 60 (> 60); eGFR For Non-African Americans 51 (> 60)
[2017-10-09] MEDS: *HR* Enoxaparin 40 MG/0.4 ML SYRINGE SQ SCH (06:06)
[2017-10-09] MEDS: Insulin LISPRO 300 UNITS/3 ML VIAL SQ SCH ×4 (06:06→23:21)
[2017-10-09] MEDS: *HR* Metoprolol 5 MG/5 ML VIAL IVP SCH ×4 (06:06→23:21)
--- NOTE | 2017-10-09 06:39 | Pulmonology Progress Note ---
Date of Encounter: 10/09/17 Time of Encounter: 06:30 Assessment and Plan (1) Acute respiratory failure with hypercapnia Current Visit: Yes Status: Acute Actually she might have chronic hypercapnia with presenting bicarbonate around 29 can due to SATURNINO/OHS now with exacerbation of diastolic heart failure and pneumonia led to the decompensation to acute on chronic hypercapnic respiratory failure failed BIPAP therapy , needed intubation extubated 2 days ago needed BIPAP all day yesterday in the night she got break from BIPAP , the morning ABG the gas exchange good will need BIPAP in the night and whenever she sleeps . (2) Congestive heart failure Current Visit: Yes Status: Acute To continue diuresis , to continue beta blockers . Qualifiers: Congestive heart failure type: diastolic Qualified Code(s): I50.30 - Unspecified diastolic (congestive) heart failure (3) DVT prophylaxis Current Visit: Yes Status: Chronic To continue Lovenox (4) Atrial fibrillation Current Visit: Yes Status: Chronic To continue betablockers if she is stable will start on bridging therapy for anticoagulation. Qualifiers: Atrial fibrillation type: chronic Qualified Code(s): I48.2 - Chronic atrial fibrillation (5) Pneumonia Current Visit: Yes Status: Acute Patient has poor swallowing mechanism possible she might have aspiration pneumonia will start descalating antibitoics will stop zyvox first . Platelets stable Qualifiers: Pneumonia type: due to unspecified organism Qualified Code(s): J18.9 - Pneumonia, unspecified organism Subjective Principal diagnosis: Acute respiratory failure Interval history: Patient is more alert today she is following commands A x2 , denies any chest pain or any abdominal pain is here for acute on chronic hypercapnic respiratory failure. Objective PUL Vital signs: Last Vital Signs Temp 97.0 F L 10/09/17 04:00 Pulse 83 10/09/17 06:00 Resp 16 10/09/17 06:00 BP 131/61 10/09/17 06:00 Pulse Ox 96 10/09/17 06:00 Auscultation: bilateral: diminished breath sounds, other (scattered crackles ) Cardiovascular: irregular rhythm Gastrointestinal: hypoactive bowel sounds Extremities: edema (chronic skin changes ) non-focal exam, other (patient has episodic confusion) Results - Laboratory Findings CBC and BMP: 10/09/17 04:30 10/09/17 04:30 ABG ABG pH 7.36 pH Units (7.32-7.45) 10/09/17 03:42 ABG pCO2 68 mmHg (35-45) H 10/09/17 03:42 ABG pO2 59 mmHg (85-104) L 10/09/17 03:42 ABG O2 Saturation 88 % (95-98) L 10/09/17 03:42 PT/INR, D-dimer PT 16.2 Seconds (9.4-12.1) H 10/04/17 03:38 Abnormal lab findings: Abnormal lab results MCV 100.5 fL (83.0-100.0) H 10/09/17 04:30 MCHC 29.3 g/dL (31.6-35.5) L 10/09/17 04:30 Plt Count 130 K/mcL (140-400) L 10/09/17 04:30 Monocytes # 1.4 K/mcL (0.0-1.3) H 10/09/17 04:30 Immature Plt Fraction 9.2 % (1.1-6.1) H 10/07/17 03:35 PT 16.2 Seconds (9.4-12.1) H 10/04/17 03:38 ABG pCO2 68 mmHg (35-45) H 10/09/17 03:42 ABG pO2 59 mmHg (85-104) L 10/09/17 03:42 ABG HCO3 39 mEq/L (21-27) H 10/09/17 03:42 ABG Total CO2 41 mEq/L (20-26) H 10/09/17 03:42 ABG O2 Saturation 88 % (95-98) L 10/09/17 03:42 ABG Base Excess 10 mEq/L (-2 to 3) H 10/09/17 03:42 Potassium 3.2 mEq/L (3.5-5.1) L 10/09/17 04:30 Carbon Dioxide 36 mEq/L (23-29) H 10/09/17 04:30 BUN 24 mg/dL (8-23) H 10/09/17 04:30 Est GFR (Non-Af Amer) 51 (> 60) L 10/09/17 04:30 Glucose 138 mg/dL (70-105) H 10/09/17 04:30 POC Glucose 150 (58-89) H 10/08/17 23:00 Venous Ioniz Calcium 1.38 mmol/L (1.15-1.35) H 10/08/17 19:48 B-Natriuretic Peptide 345 pg/mL (0-100) H 10/04/17 03:38 Serum Total Protein 5.8 g/dL (6.4-8.9) L 10/09/17 04:30 Albumin 2.8 g/dL (3.5-5.7) L 10/09/17 04:30 Albumin/Globulin Ratio 0.9 (1.1-2.2) L 10/09/17 04:30 HDL Cholesterol 29 mg/dL (40-59) L 10/05/17 03:45 Ur Leukocyte Esterase Small (Negative) H 10/04/17 16:20 Urine Microscopic WBC 5-15 per hpf (0-3) H 10/04/17 16:20 Ur Squamous Epith Cells Many per lpf (None-Few) H 10/04/17 16:20 - Clinical Findings Intake & Output: Intake & Output 10/08/17 10/08/17 10/09/17 15:59 23:59 07:59 Intake Total 420 / 420 120 / 120 120 / 120 Output Total 925 / 925 275 / 275 100 / 100 Balance -505 / -505 -155 / -155 Weight 141.8 kg Consult Discharge Plan - Plan Referrals: Bradly Cuellar [Primary Care Provider] -
[2017-10-09] MEDS: Pantoprazole 40 MG VIAL IVP SCH (08:39)
[2017-10-09] MEDS: Furosemide 40 MG/4 ML VIAL IVP SCH (08:40)
[2017-10-09] MEDS: Insulin DETEMIR 100 UNIT/ML X5UNITS SQ SCH ×2 (08:40→21:02)
[2017-10-09] MEDS: Ketoconazole 2% CRM 15 GM TUBE TP SCH (11:43)
[2017-10-09] MEDS: Bisacodyl 10 MG RECTAL SUPPOSITORY RC SCH (11:43)
[2017-10-09] MEDS: Multivit/Ca/Min/Fe/FA 1 TAB TABLET PO SCH (15:11)
[2017-10-10] MEDS: MetroNIDAZOLE 500 MG/100 ML 500 MG/100 ML BAG IVPB SCH ×3 (01:30→17:05)
[2017-10-10] MEDS: Cefepime HCl 2,000 MG in Water for inj. (sterile) 20 ML 20 ML IVP SCH ×3 (03:12→21:47)
[2017-10-10] MEDS: Ipratropium/Albuterol Neb 3 ML IH SCH ×6 (04:12→23:51)
[2017-10-10] MEDS: Bisacodyl 10 MG RECTAL SUPPOSITORY RC SCH (09:54)
[2017-10-10] MEDS: Furosemide 40 MG/4 ML VIAL IVP SCH (09:54)
[2017-10-10] MEDS: Multivit/Ca/Min/Fe/FA 1 TAB TABLET PO SCH (09:55)
[2017-10-10] MEDS: Pantoprazole 40 MG VIAL IVP SCH (09:55)
[2017-10-10] MEDS: Ketoconazole 2% CRM 15 GM TUBE TP SCH (09:55)
[2017-10-10] MEDS: Insulin DETEMIR 100 UNIT/ML X5UNITS SQ SCH ×2 (09:57→21:51)
[2017-10-10] MEDS: *HR* Metoprolol 5 MG/5 ML VIAL IVP SCH ×3 (10:38→17:04)
[2017-10-10] MEDS: Insulin LISPRO 300 UNITS/3 ML VIAL SQ SCH ×3 (10:38→17:04)
[2017-10-10] MEDS: *HR* Enoxaparin 40 MG/0.4 ML SYRINGE SQ SCH (10:41)
--- NOTE | 2017-10-10 12:35 | Pulmonology Progress Note ---
Date of Encounter: 10/10/17 Time of Encounter: 10:30 Assessment and Plan (1) Acute respiratory failure with hypercapnia Current Visit: Yes Status: Acute Actually she might have chronic hypercapnia with presenting bicarbonate around 29 can due to SATURNINO/OHS now with exacerbation of diastolic heart failure and pneumonia led to the decompensation to acute on chronic hypercapnic respiratory failure failed BIPAP therapy , needed intubation extubated 2 days ago needed BIPAP all day yesterday in the night she got break from BIPAP , the morning ABG the gas exchange good will need BIPAP in the night and whenever she sleeps . To continue the current settings of BIPAP at night once she at baseline she can start using her home PAP therapy. (2) Congestive heart failure Current Visit: Yes Status: Acute To continue diuresis , to continue beta blockers . She might soon reach her goal diuresis Qualifiers: Congestive heart failure type: diastolic Qualified Code(s): I50.30 - Unspecified diastolic (congestive) heart failure (3) DVT prophylaxis Current Visit: Yes Status: Chronic To continue Lovenox , can start Coumadin for her atrial fibrillation. (4) Atrial fibrillation Current Visit: Yes Status: Chronic To continue betablockers if she is stable will start on coumadin therapy. Qualifiers: Atrial fibrillation type: chronic Qualified Code(s): I48.2 - Chronic atrial fibrillation (5) Pneumonia Current Visit: Yes Status: Acute Patient passed swallow evaluation to follow speech recommendations , to stop zyvox then slowly de-escalate antibiotics. Qualifiers: Pneumonia type: due to unspecified organism Qualified Code(s): J18.9 - Pneumonia, unspecified organism Subjective Principal diagnosis: Acute respiratory failure Interval history: Patient is more alert today she is following commands A x2 , denies any chest pain or any abdominal pain is here for acute on chronic hypercapnic respiratory failure. Objective PUL Vital signs: Last Vital Signs Temp 98.5 F 10/10/17 11:26 Pulse 106 10/10/17 11:26 Resp 16 10/10/17 11:26 BP 121/66 10/10/17 11:26 Pulse Ox 98 10/10/17 11:26 Auscultation: bilateral: diminished breath sounds, rhonchi (bilateral scattered rhonchi) Cardiovascular: irregular rhythm Integumentary: other (chronic skin changes ) Results - Laboratory Findings CBC and BMP: 10/10/17 12:51 10/10/17 12:51 ABG ABG pH 7.36 pH Units (7.32-7.45) 10/09/17 03:42 ABG pCO2 68 mmHg (35-45) H 10/09/17 03:42 ABG pO2 59 mmHg (85-104) L 10/09/17 03:42 ABG O2 Saturation 88 % (95-98) L 10/09/17 03:42 PT/INR, D-dimer PT 16.2 Seconds (9.4-12.1) H 10/04/17 03:38 Abnormal lab findings: Abnormal lab results MCV 100.5 fL (83.0-100.0) H 10/09/17 04:30 MCHC 29.3 g/dL (31.6-35.5) L 10/09/17 04:30 Plt Count 130 K/mcL (140-400) L 10/09/17 04:30 Monocytes # 1.4 K/mcL (0.0-1.3) H 10/09/17 04:30 Immature Plt Fraction 9.2 % (1.1-6.1) H 10/07/17 03:35 PT 16.2 Seconds (9.4-12.1) H 10/04/17 03:38 ABG pCO2 68 mmHg (35-45) H 10/09/17 03:42 ABG pO2 59 mmHg (85-104) L 10/09/17 03:42 ABG HCO3 39 mEq/L (21-27) H 10/09/17 03:42 ABG Total CO2 41 mEq/L (20-26) H 10/09/17 03:42 ABG O2 Saturation 88 % (95-98) L 10/09/17 03:42 ABG Base Excess 10 mEq/L (-2 to 3) H 10/09/17 03:42 Potassium 3.2 mEq/L (3.5-5.1) L 10/09/17 04:30 Carbon Dioxide 36 mEq/L (23-29) H 10/09/17 04:30 BUN 24 mg/dL (8-23) H 10/09/17 04:30 Est GFR (Non-Af Amer) 51 (> 60) L 10/09/17 04:30 Glucose 138 mg/dL (70-105) H 10/09/17 04:30 POC Glucose 172 (58-89) H 10/10/17 05:21 Venous Ioniz Calcium 1.38 mmol/L (1.15-1.35) H 10/08/17 19:48 B-Natriuretic Peptide 345 pg/mL (0-100) H 10/04/17 03:38 Serum Total Protein 5.8 g/dL (6.4-8.9) L 10/09/17 04:30 Albumin 2.8 g/dL (3.5-5.7) L 10/09/17 04:30 Albumin/Globulin Ratio 0.9 (1.1-2.2) L 10/09/17 04:30 HDL Cholesterol 29 mg/dL (40-59) L 10/05/17 03:45 Ur Leukocyte Esterase Small (Negative) H 10/04/17 16:20 Urine Microscopic WBC 5-15 per hpf (0-3) H 10/04/17 16:20 Ur Squamous Epith Cells Many per lpf (None-Few) H 10/04/17 16:20 - Clinical Findings Intake & Output: Intake & Output 10/09/17 10/10/17 10/10/17 23:59 07:59 15:59 Intake Total 120 / 120 120 / 120 Output Total 350 / 350 100 / 100 1000 / 1000 Balance -230 / -230 -1000 / -1000 Weight 133.4 kg 149.3 kg Consult Discharge Plan - Plan Referrals: Bradly Cuellar [Primary Care Provider] -
[2017-10-10 13:01] LABS: Basophils % 0.2 %; Eosinophils # 0.2 K/mcL (0.0-0.6); Eosinophils % 2.6 %; Hematocrit 43.2 % (35.3-44.9); Hemoglobin 12.9 g/dL (11.5-15.4); Immature Granulocytes % 0.4 % (0-4); Immature Platelets 10.4 % (1.1-6.1); Lymphocytes # 1.1 K/mcL (0.6-4.6); Lymphocytes % 13.3 %; Mean Corpuscular HGB Conc 29.9 g/dL (31.6-35.5); Mean Corpuscular Hemoglobin 29.7 pg (28.0-33.3); Mean Corpuscular Volume 99.3 fL (83.0-100.0); Mean Platelet Volume 11.9 fL (9.4-12.4); Monocytes # 1.2 K/mcL (0.0-1.3); Monocytes % 14.3 %; Neutrophils # 5.6 K/mcL (1.6-8.9); Platelet Count 152 K/mcL (140-400); Red Blood Count 4.35 M/mcL (3.82-4.97); Red Cell Distribution Width 13.5 % (11.5-14.5); Segmented Neutrophils % 69.2 %
[2017-10-10 13:14] LABS: BUN/Creatinine Ratio 24 (6-26); Blood Urea Nitrogen 24 mg/dL (8-23); Calcium 10.3 mg/dL (8.6-10.3); Carbon Dioxide 36 mEq/L (23-29); Chloride 101 mEq/L (98-107); Glucose 207 mg/dL (70-105); Osmolality,Calculated 304 (280-300); Potassium 3.3 mEq/L (3.5-5.1); Sodium 142 mEq/L (136-145); eGFR For African Americans > 60 (> 60); eGFR For Non-African Americans 53 (> 60)
[2017-10-10] MEDS ORDERED: *HR* Warfarin 7.5 MG TABLET PO ONE (14:19)
--- NOTE | 2017-10-10 14:43 | Event Note ---
Date of Encounter: 10/10/17 Time of Encounter: 14:33 Pt is confused , history obtained from family. They say she is normally sharp and lucid. For the last 2 days she has been confused per family, no change from yesterday, they say she refused BiPAP last night. PE: AAOx1, confused, heart irregularly irregular, lungs good breath sounds, faint exp. wheezes, legs w/ no edema, Assessment: Hypercapnic respiratory failure 2/2 PNA and CHF. Chronic Afib on anticoag, h/o DVT s/p IVC filter, UTI, DM Plan: Duoneb, Lasix 40mg, broad spectrum iv abx, insulin, BiPAP 16/6, 8, 35% FiO2, incentive spirometry, chest PT, PT OT, placement SW, I'll restart warfarin today with 5mg this afternoon. Ct w/ Lovenox ppx 40mg until INR>2.5
[2017-10-10 15:37] LABS: ABG Base Excess 9 mEq/L (-2 to 3); ABG HCO3 37 mEq/L (21-27); ABG Oxygen Saturation 90 % (95-98); ABG PCO2 67 mmHg (35-45); ABG PH 7.35 pH Units (7.32-7.45); ABG PO2 64 mmHg (85-104); ABG TCO2 39 mEq/L (20-26)
[2017-10-10 16:29] LABS: Prothrombin Time 22.3 Seconds (9.4-12.1)
[2017-10-10] MEDS: Potassium Chloride Elixir 20 MEQ/15 ML UDC PO SCH ×2 (17:04→21:47)
[2017-10-10] MEDS: *HR* Warfarin 5 MG TABLET PO SCH (17:05)
[2017-10-11] MEDS: Insulin LISPRO 300 UNITS/3 ML VIAL SQ SCH ×4 (00:40→18:44)
[2017-10-11] MEDS: MetroNIDAZOLE 500 MG/100 ML 500 MG/100 ML BAG IVPB SCH ×3 (00:56→17:28)
[2017-10-11] MEDS: *HR* Metoprolol 5 MG/5 ML VIAL IVP SCH ×3 (00:57→11:18)
[2017-10-11 03:30] LABS: Basophils % 0.2 %; Eosinophils # 0.4 K/mcL (0.0-0.6); Eosinophils % 4.5 %; Hematocrit 40.3 % (35.3-44.9); Hemoglobin 12.1 g/dL (11.5-15.4); Immature Granulocytes % 0.2 % (0-4); Lymphocytes # 1.2 K/mcL (0.6-4.6); Lymphocytes % 13.7 %; Mean Corpuscular Hemoglobin 29.9 pg (28.0-33.3); Mean Corpuscular Volume 99.5 fL (83.0-100.0); Mean Platelet Volume 12.1 fL (9.4-12.4); Monocytes # 1.2 K/mcL (0.0-1.3); Monocytes % 14.5 %; Neutrophils # 5.6 K/mcL (1.6-8.9); Platelet Count 146 K/mcL (140-400); Red Blood Count 4.05 M/mcL (3.82-4.97); Red Cell Distribution Width 13.4 % (11.5-14.5); Segmented Neutrophils % 66.9 %
[2017-10-11 03:54] LABS: Calcium 10.4 mg/dL (8.6-10.3); Potassium 3.4 mEq/L (3.5-5.1)
[2017-10-11] MEDS: Ipratropium/Albuterol Neb 3 ML IH SCH ×6 (03:59→23:27)
[2017-10-11] MEDS: Cefepime HCl 2,000 MG in Water for inj. (sterile) 20 ML 20 ML IVP SCH ×3 (04:15→17:28)
[2017-10-11] MEDS: *HR* Enoxaparin 40 MG/0.4 ML SYRINGE SQ SCH (06:33)
[2017-10-11] MEDS: Furosemide 40 MG/4 ML VIAL IVP SCH (10:05)
[2017-10-11] MEDS: Pantoprazole 40 MG VIAL IVP SCH (10:05)
[2017-10-11] MEDS: Potassium Chloride Elixir 20 MEQ/15 ML UDC PO SCH ×2 (10:05→21:39)
[2017-10-11] MEDS: Bisacodyl 10 MG RECTAL SUPPOSITORY RC SCH (10:06)
[2017-10-11] MEDS: Multivit/Ca/Min/Fe/FA 1 TAB TABLET PO SCH (10:20)
[2017-10-11] MEDS: Insulin DETEMIR 100 UNIT/ML X5UNITS SQ SCH ×2 (10:20→21:38)
[2017-10-11] MEDS: Ketoconazole 2% CRM 15 GM TUBE TP SCH (11:16)
--- NOTE | 2017-10-11 14:31 | Internal Med Progress Note ---
Date of Encounter: 10/11/17 Time of Encounter: 10:00 - Assessment and plan (1) Acute on chronic respiratory failure with hypoxia and hypercapnia Current Visit: Yes Status: Acute Assessment and plan: Continue with BiPAP at night. Oxygen by nasal cannula. Inhaled bronchodilators. (2) Acute on chronic diastolic heart failure Current Visit: Yes Status: Acute Assessment and plan: IV Lasix 40 mg daily. Strict I's and O's and daily weights. (3) Morbid obesity Current Visit: Yes Status: Chronic Assessment and plan: Outpatient follow-up for weight loss regimen. (4) Obstructive sleep apnea Current Visit: No Status: Chronic Assessment and plan: Nighttime BiPAP. (5) DVT prophylaxis Current Visit: Yes Status: Chronic Assessment and plan: On Lovenox right now. (6) Pneumonia Current Visit: Yes Status: Acute Assessment and plan: Continue with Zyvox and cefepime. Sputum culture result noted, no pathogens identified. Qualifiers: Pneumonia type: due to unspecified organism Qualified Code(s): J18.9 - Pneumonia, unspecified organism (7) Atrial fibrillation Current Visit: Yes Status: Chronic Assessment and plan: Continue with metoprolol. I resumed warfarin last night. Although INR is 2.0 I will continue bridging for a total of 48 hours with subcutaneous Lovenox at prophylactic dose. Qualifiers: Atrial fibrillation type: chronic Qualified Code(s): I48.2 - Chronic atrial fibrillation - Subjective Interval history: History obtained from the patient is limited to to mental confusion. She denies chest pain and shortness of breath. She has awake alert oriented to self only. She was transferred from the ICU yesterday after being treated for pneumonia and respiratory failure. - Constitutional Vitals: Temp Pulse Resp BP Pulse Ox 97.3 F L 100 18 108/71 97 10/11/17 06:05 10/11/17 11:34 10/11/17 11:34 10/11/17 11:34 10/11/17 11:34 General appearance: Present: A&O X 1, morbidly obese - Eye Eye exam: Present: PERRL, conjuntiva pink, sclera anicteric Pupils: Present: PERRL - Respiratory Respiratory exam: Present: rales. Absent: accessory muscle use, rhonchi, wheezes - Cardiovascular Cardiovascular exam: Present: irregular rhythm, +S1, +S2. Absent: diastolic murmur, gallop, rubs, systolic murmur - GI/Abdominal GI/Abdominal exam: Present: normal bowel sounds, soft, no peritoneal signs. Absent: distended, tenderness - Extremities Exam Extremities exam: Present: warm, radial pulses palpable and symmetrical. Absent : calf tenderness, cyanotic, pedal edema - Skin Skin exam: Present: dry, intact Internal Medicine: Result - Labs CBC & Chem 7: 10/11/17 03:21 10/11/17 03:21 Labs: Short CBC 10/11/17 Range/Units 03:21 WBC 8.4 (4.3-11.1) K/mcL Hgb 12.1 (11.5-15.4) g/dL Hct 40.3 (35.3-44.9) % Plt Count 146 (140-400) K/mcL Neutrophils # 5.6 (1.6-8.9) K/mcL BMP 10/11/17 03:21 Sodium 140 Potassium 3.4 L Chloride 102 Carbon Dioxide 34 H BUN 27 H Creatinine 1.12 Glucose 190 H Calcium 10.4 H - ABG Interpretation ABG results: ABG ABG pH 7.35 pH Units (7.32-7.45) 10/10/17 15:18 ABG pCO2 67 mmHg (35-45) H 10/10/17 15:18 ABG pO2 64 mmHg (85-104) L 10/10/17 15:18 ABG O2 Saturation 90 % (95-98) L 10/10/17 15:18 PT/INR, D-dimer PT 22.0 Seconds (9.4-12.1) H 10/11/17 03:21 Consult Discharge Plan - Plan Referrals: Bradly Cuellar [Primary Care Provider] -
[2017-10-11] MEDS: *HR* Warfarin 5 MG TABLET PO SCH (17:29)
[2017-10-11] MEDS ORDERED: Warfarin perPT PO PRN (18:00)
[2017-10-12] MEDS: MetroNIDAZOLE 500 MG/100 ML 500 MG/100 ML BAG IVPB SCH (02:13)
[2017-10-12] MEDS: Ipratropium/Albuterol Neb 3 ML IH SCH ×5 (04:00→20:42)
[2017-10-12] MEDS: Cefepime HCl 2,000 MG in Water for inj. (sterile) 20 ML 20 ML IVP SCH ×3 (04:09→17:20)
[2017-10-12 04:58] LABS: Basophils % 0.4 %; Eosinophils # 0.4 K/mcL (0.0-0.6); Eosinophils % 5.5 %; Hematocrit 40.5 % (35.3-44.9); Hemoglobin 12.3 g/dL (11.5-15.4); Immature Granulocytes % 0.3 % (0-4); Lymphocytes # 1.4 K/mcL (0.6-4.6); Lymphocytes % 18.8 %; Mean Corpuscular HGB Conc 30.4 g/dL (31.6-35.5); Mean Corpuscular Hemoglobin 29.4 pg (28.0-33.3); Mean Corpuscular Volume 96.9 fL (83.0-100.0); Mean Platelet Volume 11.7 fL (9.4-12.4); Monocytes # 1.2 K/mcL (0.0-1.3); Monocytes % 16.2 %; Neutrophils # 4.5 K/mcL (1.6-8.9); Platelet Count 151 K/mcL (140-400); Red Blood Count 4.18 M/mcL (3.82-4.97); Red Cell Distribution Width 13.4 % (11.5-14.5); Segmented Neutrophils % 58.8 %
[2017-10-12 05:08] LABS: INR 2.2; Prothrombin Time 23.9 Seconds (9.4-12.1)
[2017-10-12 05:15] LABS: Calcium 10.3 mg/dL (8.6-10.3); Potassium 3.3 mEq/L (3.5-5.1)
[2017-10-12] MEDS: *HR* Enoxaparin 40 MG/0.4 ML SYRINGE SQ SCH (05:33)
[2017-10-12] MEDS: Potassium Chloride Elixir 20 MEQ/15 ML UDC PO SCH ×2 (08:24→22:03)
[2017-10-12] MEDS: Insulin LISPRO 300 UNITS/3 ML VIAL SQ SCH ×3 (08:24→17:31)
[2017-10-12] MEDS: Pantoprazole 40 MG VIAL IVP SCH (08:24)
[2017-10-12] MEDS: Furosemide 40 MG/4 ML VIAL IVP SCH (08:24)
[2017-10-12] MEDS: Multivit/Ca/Min/Fe/FA 1 TAB TABLET PO SCH (08:24)
[2017-10-12] MEDS: Bisacodyl 10 MG RECTAL SUPPOSITORY RC SCH (08:25)
[2017-10-12] MEDS: Insulin DETEMIR 100 UNIT/ML X5UNITS SQ SCH ×2 (08:25→22:02)
--- NOTE | 2017-10-12 10:45 | Internal Med Progress Note ---
<Winston Huffman - Last Filed: 10/12/17 11:46> Date of Encounter: 10/12/17 Time of Encounter: 09:00 - Assessment and plan (1) Acute on chronic respiratory failure with hypoxia and hypercapnia Current Visit: Yes Status: Acute Assessment and plan: - Initial ABG on admission found pH 7.15, pCO2 109, pO2 91 and HCO3 38. - Likely multifactorial including possible pneumonia in the setting of CHF and underlying sleep apnea/OHS. - Was intubated on 10/05/17 and extubated on 10/07/17. - Improves as patient now maintains good O2 saturation on 2L NC. - Continue antibiotic for pneumonia, Lasix for CHF, nighttime BiPAP use for sleep apnea, bronchodilators and supplemental oxygen. - Continue to monitor. (2) Pneumonia Current Visit: Yes Status: Acute Assessment and plan: - Currently on cefepime (since 10/06), Zyvox (since 10/06) and Flagyl (since ). No known history of MRSA, will discontinue Zyvox and Flagyl. . Qualifiers: Pneumonia type: due to unspecified organism Qualified Code(s): J18.9 - Pneumonia, unspecified organism (3) Acute on chronic diastolic heart failure Current Visit: Yes Status: Acute Assessment and plan: - Echo on 10/06/17 found LVEF 55% with indeterminate diastolic function. - Continue IV Lasix 40 mg daily. - Net -[id number] so far. - Strict I's and O's and daily weights. (4) Atrial fibrillation Current Visit: Yes Status: Chronic Assessment and plan: - Continue rate-control with metoprolol. - Continue warfarin for anticoagulation. Currently bridging with Lovenox and INR is 2.2 today. Will discontinue Lovenox. Qualifiers: Atrial fibrillation type: chronic Qualified Code(s): I48.2 - Chronic atrial fibrillation (5) Obstructive sleep apnea Current Visit: No Status: Chronic Assessment and plan: - Continue nighttime BiPAP. (6) Morbid obesity Current Visit: Yes Status: Chronic Assessment and plan: - Patient will benefit from outpatient follow-up for weight loss regimen. (7) DVT prophylaxis Current Visit: Yes Status: Chronic Assessment and plan: - Currently on Lovenox and warfarin with INR 2.2 today. - Subjective Interval history: Patient was seen and examined this morning. Patient still has some non- productive cough but reports breathing well and denies fever, chest pain, abdominal pain, nausea, vomiting, diarrhea. - Constitutional Vitals: Temp Pulse Resp BP Pulse Ox 97.9 F 83 18 111/58 100 10/12/17 06:54 10/12/17 06:54 10/12/17 07:30 10/12/17 06:54 10/12/17 07:30 General appearance: Present: cooperative, A&O X 3, morbidly obese, no acute distress, obese, answers questions appropriately - Head Head exam: Present: normal inspection - Eye Eye exam: Present: EOMI, conjuntiva pink, sclera anicteric - Neck Neck exam general surgery: Present: supple, trachea midline - Respiratory Respiratory exam: Present: decreased breath sounds. Absent: accessory muscle use, rales, rhonchi, wheezes - Cardiovascular Cardiovascular exam: Present: RRR, +S1, +S2 - GI/Abdominal GI/Abdominal exam: Present: normal bowel sounds, soft, no peritoneal signs. Absent: tenderness - Extremities Exam Extremities exam: Present: pedal edema (Moderate BLE edema.), warm. Absent: cyanotic - Neurological Exam Neurological exam: Present: alert, no focal deficits. Absent: facial droop, speech deficit - Skin Skin exam: Present: dry, warm Internal Medicine: Result - Labs CBC & Chem 7: 10/12/17 04:50 10/12/17 04:50 Labs: Short CBC 10/12/17 Range/Units 04:50 WBC 7.6 (4.3-11.1) K/mcL Hgb 12.3 (11.5-15.4) g/dL Hct 40.5 (35.3-44.9) % Plt Count 151 (140-400) K/mcL Neutrophils # 4.5 (1.6-8.9) K/mcL BMP 10/12/17 04:50 Sodium 140 Potassium 3.3 L Chloride 101 Carbon Dioxide 35 H BUN 24 H Creatinine 1.12 Glucose 193 H Calcium 10.3 - ABG Interpretation ABG results: ABG ABG pH 7.35 pH Units (7.32-7.45) 10/10/17 15:18 ABG pCO2 67 mmHg (35-45) H 10/10/17 15:18 ABG pO2 64 mmHg (85-104) L 10/10/17 15:18 ABG O2 Saturation 90 % (95-98) L 10/10/17 15:18 PT/INR, D-dimer PT 23.9 Seconds (9.4-12.1) H 10/12/17 04:50 Consult Discharge Plan - Plan Referrals: Bradly Cuellar [Primary Care Provider] - 10/20/17 8:00 am <Mary LouLemuel - Last Filed: 10/12/17 18:48> Date of Encounter: 10/12/17 - Assessment and plan (1) Acute on chronic respiratory failure with hypoxia and hypercapnia Current Visit: Yes Status: Acute (2) Acute on chronic diastolic heart failure Current Visit: Yes Status: Acute (3) Morbid obesity Current Visit: Yes Status: Chronic (4) Obstructive sleep apnea Current Visit: No Status: Chronic (5) DVT prophylaxis Current Visit: Yes Status: Chronic (6) Pneumonia Current Visit: Yes Status: Acute Qualifiers: Pneumonia type: due to unspecified organism Qualified Code(s): J18.9 - Pneumonia, unspecified organism (7) Atrial fibrillation Current Visit: Yes Status: Chronic Qualifiers: Atrial fibrillation type: chronic Qualified Code(s): I48.2 - Chronic atrial fibrillation - Constitutional Vitals: Temp Pulse Resp BP Pulse Ox 97.6 F 81 18 123/84 100 10/12/17 15:00 10/12/17 15:00 10/12/17 15:20 10/12/17 15:00 10/12/17 15:20 Internal Medicine: Result - Labs CBC & Chem 7: 10/12/17 04:50 10/12/17 04:50 Labs: Short CBC 10/12/17 Range/Units 04:50 WBC 7.6 (4.3-11.1) K/mcL Hgb 12.3 (11.5-15.4) g/dL Hct 40.5 (35.3-44.9) % Plt Count 151 (140-400) K/mcL Neutrophils # 4.5 (1.6-8.9) K/mcL BMP 10/12/17 04:50 Sodium 140 Potassium 3.3 L Chloride 101 Carbon Dioxide 35 H BUN 24 H Creatinine 1.12 Glucose 193 H Calcium 10.3 - ABG Interpretation ABG results: ABG ABG pH 7.35 pH Units (7.32-7.45) 10/10/17 15:18 ABG pCO2 67 mmHg (35-45) H 10/10/17 15:18 ABG pO2 64 mmHg (85-104) L 10/10/17 15:18 ABG O2 Saturation 90 % (95-98) L 10/10/17 15:18 PT/INR, D-dimer PT 23.9 Seconds (9.4-12.1) H 10/12/17 04:50 - Attending Attestation I conducted a face to face diagnostic evaluation of this patient and my medical decision-making was reviewed with the Resident Physician, Dr Winston Huffman. I agree with the documented findings, disposition and treatment plan as described except to the extent set forth below: Patient's mental status has improved since yesterday. She is awake alert oriented 3. Heart is regular. Lungs exam with crackles at the bases. Plan: PT OT, de-escalate antibiotics. Nighttime BiPAP. We will check ABG in the morning. Lemuel Barreto MD
[2017-10-12] MEDS: Ketoconazole 2% CRM 15 GM TUBE TP SCH (12:19)
[2017-10-12] MEDS ORDERED: *HR* Warfarin 2.5 MG TABLET PO ONE (18:00)
[2017-10-12] MEDS ORDERED: Insulin LISPRO 300 UNITS/3 ML VIAL SQ SCH (21:00)
[2017-10-13] MEDS: Ipratropium/Albuterol Neb 3 ML IH SCH ×5 (00:19→15:46)
[2017-10-13] MEDS: Cefepime HCl 2,000 MG in Water for inj. (sterile) 20 ML 20 ML IVP SCH ×2 (04:11→11:37)
[2017-10-13 05:59] LABS: Basophils % 0.6 %; Eosinophils # 0.5 K/mcL (0.0-0.6); Eosinophils % 7.5 %; Hematocrit 41.2 % (35.3-44.9); Hemoglobin 12.5 g/dL (11.5-15.4); Immature Granulocytes % 0.6 % (0-4); Lymphocytes # 1.1 K/mcL (0.6-4.6); Lymphocytes % 17.5 %; Mean Corpuscular HGB Conc 30.3 g/dL (31.6-35.5); Mean Corpuscular Hemoglobin 29.5 pg (28.0-33.3); Mean Corpuscular Volume 97.2 fL (83.0-100.0); Mean Platelet Volume 12.2 fL (9.4-12.4); Monocytes % 15.4 %; Neutrophils # 3.7 K/mcL (1.6-8.9); Platelet Count 165 K/mcL (140-400); Red Blood Count 4.24 M/mcL (3.82-4.97); Red Cell Distribution Width 13.5 % (11.5-14.5); Segmented Neutrophils % 58.4 %
[2017-10-13 06:07] LABS: INR 2.3
[2017-10-13 06:18] LABS: BUN/Creatinine Ratio 22 (6-26); Blood Urea Nitrogen 24 mg/dL (8-23); Calcium 10.6 mg/dL (8.6-10.3); Carbon Dioxide 34 mEq/L (23-29); Chloride 103 mEq/L (98-107); Glucose 177 mg/dL (70-105); Osmolality,Calculated 300 (280-300); Potassium 3.4 mEq/L (3.5-5.1); Sodium 141 mEq/L (136-145); eGFR For African Americans > 60 (> 60); eGFR For Non-African Americans 50 (> 60)
[2017-10-13] MEDS: Insulin LISPRO 300 UNITS/3 ML VIAL SQ SCH ×2 (09:24→12:32)
[2017-10-13] MEDS: Potassium Chloride Elixir 20 MEQ/15 ML UDC PO SCH (09:28)
[2017-10-13] MEDS: Pantoprazole 40 MG VIAL IVP SCH (09:30)
--- NOTE | 2017-10-13 09:33 | Discharge Summary ---
<Winston Huffman - Last Filed: 10/13/17 17:57> Date of Encounter: 10/13/17 Time of Encounter: 09:15 - Discharge Diagnosis (1) Acute on chronic respiratory failure with hypoxia and hypercapnia Priority: Primary Status: Acute (2) Pneumonia Priority: Secondary Status: Acute Qualifiers: Pneumonia type: due to unspecified organism Laterality: unspecified laterality Lung location: unspecified part of lung Qualified Code(s): J18.9 - Pneumonia, unspecified organism (3) Acute on chronic diastolic heart failure Priority: Secondary Status: Acute (4) Atrial fibrillation Priority: Secondary Status: Chronic Qualifiers: Atrial fibrillation type: chronic Qualified Code(s): I48.2 - Chronic atrial fibrillation (5) Obstructive sleep apnea Priority: Secondary Status: Chronic (6) Morbid obesity Priority: Secondary Status: Chronic - Discharge Medications Prescriptions: Potassium Chloride Elixir [Potassium Chloride] 20 meq PO BID #60 [facility] [place] Home Medications: Albuterol Sulfate [Albuterol Inhaler] 2 puff IH Q4HR PRN 06/27/15 [History] Furosemide [Lasix] 40 mg PO BID 06/27/15 [History] Insulin Aspart Prot/Insuln Asp [Novolog Mix 70-30 Flexpen Syrn] 11 - 15 unit SQ QID 06/27/15 [History] Insulin Glargine,Hum.rec.anlog [Lantus Solostar] 10 unit SQ HS 06/27/15 [History ] Insulin Glargine,Hum.rec.anlog [Lantus Solostar] 20 unit SQ QAM 06/27/15 [ History] Loratadine [Claritin] 10 mg PO QAM 06/27/15 [History] Losartan [Cozaar] 50 mg PO QAM 06/27/15 [History] Metoprolol [Lopressor] 12.5 mg PO BID 06/27/15 [History] Multivitamin/Iron/Folic Acid [Centrum Complete Multivit Tab] 1 each PO QAM 06/27 [History] [place] Oil/[place]-3 Fatty Acids [Fish Oil 500 mg Softgel] 1,000 mg PO BID [History] TraMADol [Ultram] 50 mg PO DAILY PRN 06/27/15 [History] Warfarin [Coumadin] 4 mg PO QPM 06/27/15 [History] Ammonium Lactate [Lac-Hydrin Five] 1 appl TP BID PRN 10/04/17 [History] Calcitriol [Rocaltrol] 0.25 mcg PO DAILY 10/04/17 [History] Cyanocobalamin (B-12) [Vitamin B12] 1,000 mcg IM QMONTH 10/04/17 [History] Ketoconazole 2% CRM [Nizoral Cream] 1 appl TP DAILY 10/04/17 [History] Menthol/Zinc Oxide [Calmoseptine Ointment Packet] 1 appl TP BID 10/04/17 [ History] Simvastatin [Zocor] 20 mg PO HS 10/04/17 [History] Potassium Chloride Elixir [Potassium Chloride] 20 meq PO BID #60 udc 10/13/17 [ Rx] Allergies/Adverse Reactions: 3 Allergy/AdvReac Type Severity Reaction Status Date / Time acetaminophen [From Vicodin] Allergy Hives Verified 10/04/17 07:29 cephalexin [From Keflex] Allergy Hives Verified 10/04/17 07:29 Erythromycin Base Allergy Hives Verified 10/04/17 07:29 hydrocodone [From Vicodin] Allergy Hives Verified 10/04/17 07:29 levofloxacin [From Levaquin] Allergy Hives Verified 10/04/17 07:29 Oxycodone Allergy Hives Verified 10/04/17 07:29 piperacillin Allergy Hives Verified 10/04/17 07:29 Sulfa (Sulfonamide Allergy Hives Verified 10/04/17 07:29 Antibiotics) vancomycin Allergy Hives Verified 10/04/17 07:29 gabapentin [From Neurontin] AdvReac Unconscious Verified 10/04/17 07:29 Date of admission: 10/05/17 09:15 Primary care physician: Bradly Cuellar Consults: 10/06/17 09:22 Consult to Invasive Line Access Team [CONS] Routine Reason for Consult: limited vascular access Line Type: PICC 10/08/17 08:50 Consult to Speech Therapy [CONS] Routine Comment: Evaluate, develop and implement POC Reason for Consult: swallow eval, failed bedside nursing eval Call Completed: No 10/10/17 14:42 Consult to Tanker Service Attendant [CONS] Routine Reason for SW Consult: Pt is from [facility] 10/10/17 14:43 Consult to Physical Therapy [CONS] Routine Comment: Evaluate, develop and implement POC Reason for Consult: Possible rehab placement 10/10/17 14:44 Consult to Occupational Therapy [CONS] Routine Comment: Evaluate, develop and implement POC Reason for Consult: Possible rehab placement. Discharging clinician: Winston Huffman Anticipated date of discharge: 10/13/17 - Patient Status Disposition: Transfer SNF Condition: Fair Functional capacity at discharge: uses cane/walker Overall status at discharge: patient is progressing back to baseline - Discharge Instructions Instructions: Pneumonia (DC) Follow Up With: Bradly Cuellar [Primary Care Provider] - 10/20/17 8:00 am Additional Instructions: Please follow up with your primary care provider on 10/20/17. - Diet and Activity Activity: as per physical therapy, increase activity as tolerated Diet: advance to your usual diet Hospital course: Ms. Castro is a 77 year old female with PMH of atrial fibrillation, hypertension, morbid obesity, obstructive sleep apnea, diabetes, history of DVT , CKD stage III, chronic venous insufficiency, breast cancer s/p mastectomy and PVD who was sent from SNF for complaint of chest pain and shortness of breath. CTA chest in ED found no evidence for central pulmonary embolus. Patient was initially admitted on 10/04/17 for chest pain work-up but developed altered mental status and difficulty with maintaining oxygenation on the same day afternoon with ABG showing pH 7.15, pCO2 109, pO2 91 and HCO3 38. Patient was transferred to ICU on 10/04/17 and put on BiPAP. Patient's respiratory status continued to deteriorate and eventually required intubation on 10/05/17. Patient was started on Zyvox, Flagyl, cefepime on 10/06/17 for the concern of pneumonia. Patient was extubated on 10/07/17 and transferred out of ICU on 10/10. Patient's respiratory status continues to improve over time as patient can maintain good oxygen saturation on 2L NC. Zyvox and Flagyl were discontinued on 10/12/17 and patient finished 8-day course of cefepime on 10/13/17. PT/OT recommended SNF/ECF after discharge. Given patient improves clinically and remains hemodynamically stable, patient can be discharged to SNF. Patient will have follow-up appointment with her primary care provider on 10/20/17. Patient expressed her understanding and agreement with the discharge plan. All questions were answered. - Time Spent with Patient Total time spent providing and/or coordinating discharge services: Greater than 30 minutes (45 minutes) - Constitutional Vitals: Temp Pulse Resp BP Pulse Ox 98.3 F 75 18 118/68 98 10/13/17 08:30 10/13/17 08:30 10/13/17 08:30 10/13/17 08:30 10/13/17 08:30 General appearance: Present: cooperative, A&O X 3, morbidly obese, no acute distress, obese, answers questions appropriately - Head Head exam: Present: normal inspection - Eye Eye exam: Present: EOMI, conjuntiva pink, sclera anicteric - Neck Neck exam general surgery: Present: normal inspection, supple, trachea midline - Respiratory Respiratory exam: Present: decreased breath sounds. Absent: accessory muscle use, rales, rhonchi, wheezes - Cardiovascular Cardiovascular exam: Present: RRR, +S1, +S2 - GI/Abdominal GI/Abdominal exam: Present: normal bowel sounds, soft, no peritoneal signs. Absent: tenderness - Extremities Exam Extremities exam: Present: pedal edema, warm. Absent: cyanotic - Neurological Exam Neurological exam: Present: alert, oriented X3, no focal deficits, speech deficit. Absent: facial droop - Skin Skin exam: Present: dry, warm <Lemuel Barreto - Last Filed: 10/13/17 18:42> Date of Encounter: 10/13/17 - Discharge Diagnosis (1) Acute on chronic respiratory failure with hypoxia and hypercapnia Status: Acute (2) Acute on chronic diastolic heart failure Status: Acute (3) Morbid obesity Status: Chronic (4) Obstructive sleep apnea Status: Chronic (5) DVT prophylaxis Status: Chronic (6) Pneumonia Status: Acute Qualifiers: Pneumonia type: due to unspecified organism Laterality: unspecified laterality Lung location: unspecified part of lung Qualified Code(s): J18.9 - Pneumonia, unspecified organism (7) Atrial fibrillation Status: Chronic Qualifiers: Atrial fibrillation type: chronic Qualified Code(s): I48.2 - Chronic atrial fibrillation Date of admission: 10/05/17 09:15 Primary care physician: Bradly Cuellar Consults: 10/06/17 09:22 Consult to Invasive Line Access Team [CONS] Routine Reason for Consult: limited vascular access Line Type: PICC 10/08/17 08:50 Consult to Speech Therapy [CONS] Routine Comment: Evaluate, develop and implement POC Reason for Consult: swallow eval, failed bedside nursing eval Call Completed: No 10/10/17 14:42 Consult to Tanker Service Attendant [CONS] Routine Reason for SW Consult: Pt is from [facility] 10/10/17 14:43 Consult to Physical Therapy [CONS] Routine Comment: Evaluate, develop and implement POC Reason for Consult: Possible rehab placement 10/10/17 14:44 Consult to Occupational Therapy [CONS] Routine Comment: Evaluate, develop and implement POC Reason for Consult: Possible rehab placement. Hospital course: Ms. Castro is a 77 year old female - Time Spent with Patient Total time spent providing and/or coordinating discharge services: - Constitutional Vitals: Temp Pulse Resp BP Pulse Ox 97.9 F 80 16 130/71 95 10/13/17 12:00 10/13/17 12:00 10/13/17 15:46 10/13/17 12:00 10/13/17 15:46 - Attending Attestation I conducted a face to face diagnostic evaluation of this patient and my medical decision-making was reviewed with the Resident Physician, Dr Ector Avendaño. I agree with the documented findings, disposition and treatment plan as described except to the extent set forth below: Patient completed the inpatient course for pneumonia. She is severely deconditioned and will be discharged to subacute rehabilitation. Lemuel Barreto MD
[2017-10-13] MEDS: Multivit/Ca/Min/Fe/FA 1 TAB TABLET PO SCH (09:37)
[2017-10-13] MEDS: Bisacodyl 10 MG RECTAL SUPPOSITORY RC SCH (09:45)
[2017-10-13] MEDS: Furosemide 40 MG/4 ML VIAL IVP SCH (09:45)
[2017-10-13] MEDS: Ketoconazole 2% CRM 15 GM TUBE TP SCH (09:51)
[2017-10-13] MEDS: Insulin DETEMIR 100 UNIT/ML X5UNITS SQ SCH (09:52)
--- NOTE | 2017-10-13 11:30 | Physician Discharge Referral ---
ExtendedCare Referral Info Transfer To: [facility] Provider in Charge after Transfer: PCP Institutional Level of Care: Skilled - Diagnosis (1) Acute on chronic respiratory failure with hypoxia and hypercapnia Priority: Primary Status: Acute (2) Pneumonia Priority: Secondary Status: Acute (3) Acute on chronic diastolic heart failure Priority: Secondary Status: Acute (4) Atrial fibrillation Priority: Secondary Status: Chronic (5) Obstructive sleep apnea Priority: Secondary Status: Chronic (6) Morbid obesity Priority: Secondary Status: Chronic - Transfer Medications Prescriptions: Potassium Chloride Elixir [Potassium Chloride] 20 meq PO BID #60 [facility] [place] Medications: Albuterol Sulfate [Albuterol Inhaler] 2 puff IH Q4HR PRN 06/27/15 [History] Furosemide [Lasix] 40 mg PO BID 06/27/15 [History] Insulin Aspart Prot/Insuln Asp [Novolog Mix 70-30 Flexpen Syrn] 11 - 15 unit SQ QID 06/27/15 [History] Insulin Glargine,Hum.rec.anlog [Lantus Solostar] 10 unit SQ HS 06/27/15 [History ] Insulin Glargine,Hum.rec.anlog [Lantus Solostar] 20 unit SQ QAM 06/27/15 [ History] Loratadine [Claritin] 10 mg PO QAM 06/27/15 [History] Losartan [Cozaar] 50 mg PO QAM 06/27/15 [History] Metoprolol [Lopressor] 12.5 mg PO BID 06/27/15 [History] Multivitamin/Iron/Folic Acid [Centrum Complete Multivit Tab] 1 each PO QAM 06/27 [History] [place] Oil/[place]-3 Fatty Acids [Fish Oil 500 mg Softgel] 1,000 mg PO BID [History] TraMADol [Ultram] 50 mg PO DAILY PRN 06/27/15 [History] Warfarin [Coumadin] 4 mg PO QPM 06/27/15 [History] Ammonium Lactate [Lac-Hydrin Five] 1 appl TP BID PRN 10/04/17 [History] Calcitriol [Rocaltrol] 0.25 mcg PO DAILY 10/04/17 [History] Cyanocobalamin (B-12) [Vitamin B12] 1,000 mcg IM QMONTH 10/04/17 [History] Ketoconazole 2% CRM [Nizoral Cream] 1 appl TP DAILY 10/04/17 [History] Menthol/Zinc Oxide [Calmoseptine Ointment Packet] 1 appl TP BID 10/04/17 [ History] Simvastatin [Zocor] 20 mg PO HS 10/04/17 [History] Potassium Chloride Elixir [Potassium Chloride] 20 meq PO BID #60 udc 10/13/17 [ Rx] Allergies/Adverse Reactions: 3 Allergy/AdvReac Type Severity Reaction Status Date / Time acetaminophen [From Vicodin] Allergy Hives Verified 10/04/17 07:29 cephalexin [From Keflex] Allergy Hives Verified 10/04/17 07:29 Erythromycin Base Allergy Hives Verified 10/04/17 07:29 hydrocodone [From Vicodin] Allergy Hives Verified 10/04/17 07:29 levofloxacin [From Levaquin] Allergy Hives Verified 10/04/17 07:29 Oxycodone Allergy Hives Verified 10/04/17 07:29 piperacillin Allergy Hives Verified 10/04/17 07:29 Sulfa (Sulfonamide Allergy Hives Verified 10/04/17 07:29 Antibiotics) vancomycin Allergy Hives Verified 10/04/17 07:29 gabapentin [From Neurontin] AdvReac Unconscious Verified 10/04/17 07:29 - Respiratory Orders Oxygen / L per min (3L), Other (BiPAP use at night) Smoking Cessation: Smoking cessation has been advised. For more information, call the [place] Tobacco Quit Line at 2-856-GFOP-NOW. - Advance Directives Code Status: Full Code - Mobility Orders Ambulate - Rehabiliation Orders Rehab Potential: Fair Rehab Orders: Evaluation for Physical Therapy, Evaluation for Occupational Therapy - Diet Orders Regular CERTIFICATION: I certify that the transfer of the above named patient to an Extended Care Facility is necessary for the continuing treatment of the diagnosis listed. The above information is true and accurate reflection of patient's current condition. Confidential - Redisclosure prohibited without a patient's written consent.
[2017-10-13 13:18] VITALS: BP 130/71
[2017-10-13] MEDS ORDERED: *HR* Warfarin 3 MG TABLET PO SCH (18:00)
== END 2017-10-13 16:40 | DRG 208 ==
LOC: 2ANU 03:45 → EMEROO 03:45 → 2ANU 08:00 → ICNU 18:37 → SUATTDRO 10-05 09:15 → 2NENU 10-10 08:40
PROVIDERS: ADMIT Internal Medicine Pulmonary Disease; ATTEND Internal Medicine

== ENCOUNTER 2021-03-31 20:27 | Inpatient (IN) ==
[2021-03-31] MEDS ORDERED: Naloxone 0.4 MG/ML INJ IVP PRN (22:50)
[2021-03-31 23:44] LABS: Red Cell Distribution Width 13.8 % (11.5-14.5)
[2021-03-31 23:46] LABS: Basophils # 0.1 K/mcL (0.0-0.2); Basophils % 0.2 %; Hematocrit 36.8 % (35.3-44.9); Hemoglobin 11.8 g/dL (11.5-15.4); Immature Granulocytes % 1.5 % (0-4); Lymphocytes % 5.1 %; Mean Corpuscular HGB Conc 32.1 g/dL (31.6-35.5); Mean Corpuscular Hemoglobin 30.2 pg (28.0-33.3); Mean Corpuscular Volume 94.1 fL (83.0-100.0); Mean Platelet Volume 11.8 fL (9.4-12.4); Monocytes # 1.7 K/mcL (0.0-1.3); Monocytes % 5.3 %; Neutrophils # 28.4 K/mcL (1.6-8.9); Platelet Count 143 K/mcL (140-400); Red Blood Count 3.91 M/mcL (3.82-4.97); Segmented Neutrophils % 87.9 %
[2021-03-31 23:57] LABS: Alanine Aminotransferase 15 Units/L (7-52); Albumin 3.3 g/dL (3.5-5.7); Albumin/Globulin Ratio 1.4 (1.1-2.2); Alkaline Phosphatase 68 Units/L (34-104); Aspartate Amino Transferase 22 Units/L (13-39); BUN/Creatinine Ratio 23 (6-26); Bilirubin,Total 0.7 mg/dL (0.3-1.0); Blood Urea Nitrogen 24 mg/dL (8-23); Calcium 10.3 mg/dL (8.6-10.3); Carbon Dioxide 23 mEq/L (23-29); Chloride 106 mEq/L (98-107); Globulin 2.4 g/dL (2.4-3.5); Glucose 75 mg/dL (70-105); Osmolality,Calculated 283 (280-300); Potassium 3.8 mEq/L (3.5-5.1); Sodium 135 mEq/L (136-145); Total Protein 5.7 g/dL (6.4-8.9); eGFR For African Americans > 60 (> 60); eGFR For Non-African Americans 51 (> 60)
[2021-03-31 23:58] LABS: Troponin I 0.03 ng/mL (< 0.04)
[2021-04-01 00:23] LABS: Lymphocytes # 1.7 K/mcL (0.6-4.6); White Blood Count 32.3 K/mcL (4.3-11.1)
[2021-04-01 00:24] LABS: Platelet Estimate Normal (Normal)
[2021-04-01 00:35] LABS: INR 3.4; Prothrombin Time 37.6 Seconds (9.4-12.1)
[2021-04-01 00:38] LABS: Activated Partial Thrombo Time 37.3 Seconds (26.0-36.0)
[2021-04-01 05:35] LABS: Bilirubin,Urine Negative (Negative); Blood,Urine Negative (Negative); Clarity,Urine Clear (Clear); Color,Urine Yellow (Yellow); Glucose,Urine (UA) Normal (Normal); Ketones,Urine Negative (Negative); Leukocyte Esterase,Urine Moderate (Negative); Nitrite,Urine Negative (Negative); Protein,Urine Trace mg/dL (Neg-Trace); Specific Gravity,Urine > 1.030 (1.010-1.025); Squamous Epithelial Cell,Urine Few per hpf (None-Few); Urobilinogen,Urine Normal (Normal); WBC,Urine 15-30 per hpf (0-3)
[2021-04-01] MEDS ORDERED: Ipratropium/Albuterol Neb 3 ML IH PRN (07:49)
[2021-04-01] MEDS ORDERED: Dextrose Gel 15 GM/37.5 ML TUBE PO PRN ×2 (07:50)
[2021-04-01] MEDS ORDERED: D5% in Water 1,000 ML IVC PRN (07:50)
[2021-04-01] MEDS ORDERED: *HR* Dextrose 50 % in Water (Vial) 50 ML VIAL IVP PRN (07:50)
[2021-04-01] MEDS: DAPTOmycin 500 MG in 0.9 % Sodium Chloride 100 ML IVPB SCH (08:26)
[2021-04-01] MEDS: Insulin LISPRO 300 UNITS/3 ML VIAL SUBQ SCH ×2 (11:56→17:27)
[2021-04-01 15:56] LABS: Albumin 2.9 g/dL (3.5-5.7); Albumin/Globulin Ratio 1.1 (1.1-2.2); Bilirubin,Direct 0.1 mg/dL (0.0-0.2); Bilirubin,Indirect 0.4 mg/dL (0.0-1.0); Bilirubin,Total 0.5 mg/dL (0.3-1.0); Globulin 2.6 g/dL (2.4-3.5); Total Protein 5.5 g/dL (6.4-8.9)
[2021-04-01] MEDS ORDERED: Sennosides 8.6 MG TABLET PO PRN (17:04)
[2021-04-01] MEDS ORDERED: Ondansetron ODT 4 MG TAB.RAPDIS PO PRN (17:28)
[2021-04-01] MEDS: Warfarin perPT PO SCH (17:44)
[2021-04-01] MEDS ORDERED: *HR* Heparin 5,000 UNIT/ML VIAL SQ SCH (18:00)
[2021-04-01] MEDS: Artificial Tears SOLN 15 ML BOTTLE BOTH EYES SCH (20:11)
[2021-04-02 04:10] LABS: INR 2.1; Prothrombin Time 23.9 Seconds (9.4-12.1)
[2021-04-02] MEDS: DAPTOmycin 500 MG in 0.9 % Sodium Chloride 100 ML IVPB SCH (06:21)
[2021-04-02] MEDS: Insulin LISPRO 300 UNITS/3 ML VIAL SUBQ SCH ×3 (07:57→16:37)
[2021-04-02] MEDS: Furosemide 20 MG TABLET PO SCH (07:58)
[2021-04-02] MEDS: Cholecalciferol (D-3) 1,000 UNIT (25MCG) TABLET PO SCH (07:58)
[2021-04-02] MEDS: Aspirin Enteric Coated 81 MG Tablet PO SCH (07:59)
[2021-04-02] MEDS: Cyanocobalamin (B-12) 1,000 MCG TABLET PO SCH (07:59)
[2021-04-02] MEDS: Artificial Tears SOLN 15 ML BOTTLE BOTH EYES SCH ×2 (10:40→20:32)
[2021-04-02 11:37] LABS: Basophils % 0.2 %; Eosinophils # 0.2 K/mcL (0.0-0.6); Eosinophils % 1.5 %; Hematocrit 36.8 % (35.3-44.9); Hemoglobin 11.3 g/dL (11.5-15.4); Immature Granulocytes % 0.4 % (0-4); Lymphocytes # 1.7 K/mcL (0.6-4.6); Lymphocytes % 10.5 %; Mean Corpuscular HGB Conc 30.7 g/dL (31.6-35.5); Mean Corpuscular Volume 94.6 fL (83.0-100.0); Mean Platelet Volume 12.3 fL (9.4-12.4); Monocytes % 6.2 %; Neutrophils # 13.3 K/mcL (1.6-8.9); Platelet Count 136 K/mcL (140-400); Red Blood Count 3.89 M/mcL (3.82-4.97); Red Cell Distribution Width 13.9 % (11.5-14.5); Segmented Neutrophils % 81.2 %; White Blood Count 16.4 K/mcL (4.3-11.1)
[2021-04-02 11:57] LABS: Potassium 4.1 mEq/L (3.5-5.1)
[2021-04-02] MEDS ORDERED: *HR* Warfarin 5 MG TABLET PO ONE (18:00)
[2021-04-02] MEDS: Warfarin perPT PO SCH (19:02)
[2021-04-02] MEDS ORDERED: Simethicone 80 MG TAB.CHEW PO PRN (22:05)
[2021-04-03 01:21] LABS: Basophils % 0.2 %; Eosinophils # 0.5 K/mcL (0.0-0.6); Eosinophils % 4.3 %; Hematocrit 36.7 % (35.3-44.9); Immature Granulocytes % 0.5 % (0-4); Lymphocytes # 1.8 K/mcL (0.6-4.6); Lymphocytes % 15.7 %; Mean Corpuscular Hemoglobin 28.6 pg (28.0-33.3); Mean Corpuscular Volume 95.3 fL (83.0-100.0); Mean Platelet Volume 12.4 fL (9.4-12.4); Monocytes # 0.9 K/mcL (0.0-1.3); Monocytes % 7.8 %; Neutrophils # 8.1 K/mcL (1.6-8.9); Platelet Count 151 K/mcL (140-400); Red Blood Count 3.85 M/mcL (3.82-4.97); Red Cell Distribution Width 13.8 % (11.5-14.5); Segmented Neutrophils % 71.5 %; White Blood Count 11.3 K/mcL (4.3-11.1)
[2021-04-03 01:27] LABS: INR 1.7; Prothrombin Time 19.5 Seconds (9.4-12.1)
[2021-04-03 01:39] LABS: Calcium 10.8 mg/dL (8.6-10.3); Potassium 3.9 mEq/L (3.5-5.1)
[2021-04-03] MEDS: DAPTOmycin 500 MG in 0.9 % Sodium Chloride 100 ML IVPB SCH (06:31)
[2021-04-03] MEDS: Aspirin Enteric Coated 81 MG Tablet PO SCH (08:07)
[2021-04-03] MEDS: Cholecalciferol (D-3) 1,000 UNIT (25MCG) TABLET PO SCH (08:07)
[2021-04-03] MEDS: Furosemide 20 MG TABLET PO SCH (08:07)
[2021-04-03] MEDS: Cyanocobalamin (B-12) 1,000 MCG TABLET PO SCH (08:07)
[2021-04-03] MEDS: Artificial Tears SOLN 15 ML BOTTLE BOTH EYES SCH ×2 (08:08→20:24)
[2021-04-03] MEDS: Insulin LISPRO 300 UNITS/3 ML VIAL SUBQ SCH ×3 (08:08→16:53)
[2021-04-03] MEDS ORDERED: Lidocaine 5% OINT 35 APPL/35.44 GM TUBE TP ONE (10:27)
[2021-04-03] MEDS: Cefepime HCl 1,000 MG in Water for inj. (sterile) 10 ML IVP SCH (17:16)
[2021-04-03] MEDS ORDERED: *HR* Warfarin 5 MG TABLET PO ONE (18:00)
[2021-04-03] MEDS: Warfarin perPT PO SCH (18:50)
[2021-04-04 02:48] LABS: Basophils % 0.4 %; Eosinophils # 0.5 K/mcL (0.0-0.6); Eosinophils % 6.2 %; Hematocrit 35.8 % (35.3-44.9); Hemoglobin 10.9 g/dL (11.5-15.4); Immature Granulocytes % 0.4 % (0-4); Lymphocytes # 1.9 K/mcL (0.6-4.6); Lymphocytes % 23.3 %; Mean Corpuscular HGB Conc 30.4 g/dL (31.6-35.5); Mean Corpuscular Hemoglobin 28.8 pg (28.0-33.3); Mean Corpuscular Volume 94.7 fL (83.0-100.0); Mean Platelet Volume 11.7 fL (9.4-12.4); Monocytes # 0.9 K/mcL (0.0-1.3); Monocytes % 11.1 %; Neutrophils # 4.7 K/mcL (1.6-8.9); Platelet Count 170 K/mcL (140-400); Red Blood Count 3.78 M/mcL (3.82-4.97); Red Cell Distribution Width 13.5 % (11.5-14.5); Segmented Neutrophils % 58.6 %
[2021-04-04 02:55] LABS: INR 1.9; Prothrombin Time 22.1 Seconds (9.4-12.1)
[2021-04-04 03:02] LABS: BUN/Creatinine Ratio 48 (6-26); Blood Urea Nitrogen 45 mg/dL (8-23); Calcium 11.1 mg/dL (8.6-10.3); Carbon Dioxide 31 mEq/L (23-29); Chloride 102 mEq/L (98-107); Glucose 255 mg/dL (70-105); Osmolality,Calculated 308 (280-300); Sodium 139 mEq/L (136-145); eGFR For African Americans > 60 (> 60); eGFR For Non-African Americans 57 (> 60)
[2021-04-04] MEDS: Cefepime HCl 1,000 MG in Water for inj. (sterile) 10 ML IVP SCH ×2 (05:42→18:09)
[2021-04-04] MEDS: Insulin LISPRO 300 UNITS/3 ML VIAL SUBQ SCH ×3 (07:45→16:32)
[2021-04-04] MEDS: Furosemide 20 MG TABLET PO SCH (08:23)
[2021-04-04] MEDS: Cyanocobalamin (B-12) 1,000 MCG TABLET PO SCH (08:24)
[2021-04-04] MEDS: Aspirin Enteric Coated 81 MG Tablet PO SCH (08:24)
[2021-04-04] MEDS: Cholecalciferol (D-3) 1,000 UNIT (25MCG) TABLET PO SCH (08:25)
[2021-04-04] MEDS: Artificial Tears SOLN 15 ML BOTTLE BOTH EYES SCH (08:25)
[2021-04-04 15:12] VITALS: BP 127/75
[2021-04-04] MEDS ORDERED: *HR* Warfarin 5 MG TABLET PO ONE (18:00)
[2021-04-04] MEDS: Warfarin perPT PO SCH (18:05)
== END 2021-04-04 19:37 | DRG 871 ==
LOC: 2NNU → 3ANU 04-03 14:17
PROVIDERS: ADMIT Internal Medicine; ATTEND Internal Medicine

== ENCOUNTER 2022-01-03 03:32 | Inpatient (IN) ==
[2022-01-03] MEDS ORDERED: Acetaminophen 325 MG TABLET PO PRN (06:10)
[2022-01-03] MEDS ORDERED: Melatonin 3 MG TABLET PO PRN (06:10)
[2022-01-03] MEDS ORDERED: Naloxone 0.4 MG/ML INJ IVP PRN (06:10)
[2022-01-03] MEDS ORDERED: *HR* Dextrose 50 % in Water (Syg) 50 ML SYRINGE IVP PRN (06:14)
[2022-01-03] MEDS ORDERED: D5% in Water 1,000 ML IVC PRN (06:14)
[2022-01-03] MEDS ORDERED: Dextrose 4 GM Chewable Tablets PO PRN ×2 (06:14)
[2022-01-03 06:50] LABS: Basophils % 0.1 %; Hemoglobin 11.9 g/dL (11.5-15.4); Immature Granulocytes % 1.9 % (0-4); Lymphocytes # 0.7 K/mcL (0.6-4.6); Lymphocytes % 4.1 %; Mean Corpuscular HGB Conc 31.3 g/dL (31.6-35.5); Mean Corpuscular Hemoglobin 30.1 pg (28.0-33.3); Mean Platelet Volume 12.3 fL (9.4-12.4); Monocytes # 0.9 K/mcL (0.0-1.3); Monocytes % 4.9 %; Neutrophils # 15.9 K/mcL (1.6-8.9); Platelet Count 108 K/mcL (140-400); Red Blood Count 3.96 M/mcL (3.82-4.97); Red Cell Distribution Width 13.5 % (11.5-14.5); White Blood Count 17.9 K/mcL (4.3-11.1)
[2022-01-03 06:58] LABS: INR 2.4; Prothrombin Time 26.8 Seconds (9.4-12.1)
[2022-01-03 07:00] LABS: Activated Partial Thrombo Time 43.2 Seconds (26.0-36.0)
[2022-01-03 07:10] LABS: Calcium 10.2 mg/dL (8.6-10.3); Magnesium 1.9 mg/dL (1.6-2.6); Phosphorous 2.7 mg/dL (2.7-4.5); Potassium 4.7 mEq/L (3.5-5.1)
[2022-01-03] MEDS ORDERED: Isovue-370 500 ML BOTTLE IVP ONE (07:21)
[2022-01-03] MEDS ORDERED: 0.9 % Sodium Chloride 1,000 ML IVC SCH (07:30)
[2022-01-03] MEDS: Insulin LISPRO 300 UNITS/3 ML VIAL SUBQ SCH ×4 (07:42→20:59)
[2022-01-03] MEDS: Insulin DETEMIR 100 UNIT/ML X5UNITS SUBQ SCH ×2 (11:46→20:59)
[2022-01-03] MEDS: Piperacillin/Tazobactam 3.375 GM in 0.9 % Sodium Chloride Mini Bag 100 ML IVPB SCH ×3 (11:56→23:50)
[2022-01-03] MEDS ORDERED: polyethylene glycoL 3350 17 GM POWD.PACK PO PRN (13:05)
[2022-01-03] MEDS ORDERED: Gadolinium Contrast Agent (WT Based) IV PRN (14:03)
[2022-01-03] MEDS ORDERED: GADOBUTROL 30 MMOL/30 ML VIAL IVP ONE (15:23)
[2022-01-03] MEDS ORDERED: MethylPREDNISolone 40 MG/ML VIAL IVP STA (16:56)
[2022-01-03] MEDS: DAPTOmycin 500 MG in 0.9 % Sodium Chloride 100 ML IVPB SCH (17:02)
[2022-01-03] MEDS: Artificial Tears SOLN 15 ML BOTTLE BOTH EYES SCH (20:58)
[2022-01-04] MEDS ORDERED: DiphenhydraMINE CREAM 28.4 GM TUBE TP PRN (01:47)
[2022-01-04] MEDS: Loratadine 10 MG TABLET PO SCH (02:12)
[2022-01-04] MEDS: predniSONE 10 MG TABLET PO SCH (02:12)
[2022-01-04] MEDS: Aspirin Enteric Coated 81 MG Tablet PO SCH (08:03)
[2022-01-04] MEDS: Cholecalciferol (D-3) 1,000 UNIT (25MCG) TABLET PO SCH (08:03)
[2022-01-04] MEDS: Insulin DETEMIR 100 UNIT/ML X5UNITS SUBQ SCH ×2 (08:04→22:52)
[2022-01-04] MEDS: Furosemide 20 MG TABLET PO SCH (08:04)
[2022-01-04] MEDS: Insulin LISPRO 300 UNITS/3 ML VIAL SUBQ SCH ×4 (08:05→22:44)
[2022-01-04] MEDS: Piperacillin/Tazobactam 3.375 GM in 0.9 % Sodium Chloride Mini Bag 100 ML IVPB SCH ×3 (08:05→23:49)
[2022-01-04] MEDS: Artificial Tears SOLN 15 ML BOTTLE BOTH EYES SCH ×2 (08:06→22:37)
[2022-01-04 08:29] LABS: Red Cell Distribution Width 14.1 % (11.5-14.5)
[2022-01-04 08:31] LABS: Hematocrit 41.6 % (35.3-44.9); Hemoglobin 12.7 g/dL (11.5-15.4); Immature Platelets 8.5 % (1.1-6.1); Mean Corpuscular HGB Conc 30.5 g/dL (31.6-35.5); Mean Corpuscular Hemoglobin 30.2 pg (28.0-33.3); Mean Platelet Volume 12.1 fL (9.4-12.4); White Blood Count 16.6 K/mcL (4.3-11.1)
[2022-01-04 09:37] LABS: Platelet Count 95 K/mcL (140-400)
[2022-01-04 09:38] LABS: Lymphocytes # 1.3 K/mcL (0.6-4.6); Monocytes # 0.7 K/mcL (0.0-1.3); Neutrophils # 14.6 K/mcL (1.6-8.9); Platelet Estimate Slight Decrease (Normal)
[2022-01-04 15:03] LABS: Albumin 2.8 g/dL (3.5-5.7); Albumin/Globulin Ratio 0.8 (1.1-2.2); Bilirubin,Total 0.4 mg/dL (0.3-1.0); Globulin 3.3 g/dL (2.4-3.5); Total Protein 6.1 g/dL (6.4-8.9)
[2022-01-04] MEDS: DAPTOmycin 500 MG in 0.9 % Sodium Chloride 100 ML IVPB SCH (15:57)
[2022-01-05] MEDS: predniSONE 10 MG TABLET PO SCH (08:26)
[2022-01-05] MEDS: Aspirin Enteric Coated 81 MG Tablet PO SCH (08:26)
[2022-01-05] MEDS: Piperacillin/Tazobactam 3.375 GM in 0.9 % Sodium Chloride Mini Bag 100 ML IVPB SCH (08:26)
[2022-01-05] MEDS: Cholecalciferol (D-3) 1,000 UNIT (25MCG) TABLET PO SCH (08:26)
[2022-01-05] MEDS: Furosemide 20 MG TABLET PO SCH (08:26)
[2022-01-05] MEDS: Loratadine 10 MG TABLET PO SCH (08:26)
[2022-01-05] MEDS: Artificial Tears SOLN 15 ML BOTTLE BOTH EYES SCH ×2 (08:27→20:08)
[2022-01-05] MEDS: Insulin LISPRO 300 UNITS/3 ML VIAL SUBQ SCH ×4 (08:28→20:09)
[2022-01-05] MEDS: Insulin DETEMIR 100 UNIT/ML X5UNITS SUBQ SCH ×2 (08:30→20:10)
[2022-01-05 10:02] LABS: Basophils % 0.2 %; Eosinophils # 0.3 K/mcL (0.0-0.6); Eosinophils % 2.1 %; White Blood Count 12.8 K/mcL (4.3-11.1)
[2022-01-05 10:06] LABS: BUN/Creatinine Ratio 28 (6-26); Blood Urea Nitrogen 29 mg/dL (8-23); Calcium 10.2 mg/dL (8.6-10.3); Carbon Dioxide 26 mEq/L (23-29); Chloride 109 mEq/L (98-107); Glucose 140 mg/dL (70-105); Osmolality,Calculated 296 (280-300); Potassium 3.7 mEq/L (3.5-5.1); Sodium 139 mEq/L (136-145); eGFR For African Americans > 60 (> 60); eGFR For Non-African Americans 51 (> 60)
[2022-01-05 10:13] LABS: Hematocrit 41.3 % (35.3-44.9); Hemoglobin 12.8 g/dL (11.5-15.4); Immature Granulocytes % 0.4 % (0-4); Lymphocytes # 1.7 K/mcL (0.6-4.6); Lymphocytes % 13.6 %; Mean Corpuscular Hemoglobin 29.8 pg (28.0-33.3); Mean Corpuscular Volume 96.3 fL (83.0-100.0); Mean Platelet Volume 12.3 fL (9.4-12.4); Monocytes # 1.1 K/mcL (0.0-1.3); Monocytes % 8.3 %; Neutrophils # 9.7 K/mcL (1.6-8.9); Platelet Count 143 K/mcL (140-400); Red Blood Count 4.29 M/mcL (3.82-4.97); Segmented Neutrophils % 75.4 %
[2022-01-05] MEDS: Lactobacillus 1 EACH CAP.SPRINK PO SCH (12:42)
[2022-01-05] MEDS ORDERED: Colistin (Colistimethate) 300 MG in 0.9 % Sodium Chloride 50 ML IVPB ONE (16:00)
[2022-01-05] MEDS: DAPTOmycin 500 MG in 0.9 % Sodium Chloride 100 ML IVPB SCH (16:25)
[2022-01-06 02:51] LABS: Basophils % 0.2 %; Eosinophils # 0.1 K/mcL (0.0-0.6); Eosinophils % 0.5 %; Hematocrit 38.2 % (35.3-44.9); Hemoglobin 12.1 g/dL (11.5-15.4); Immature Granulocytes % 0.5 % (0-4); Lymphocytes # 2.2 K/mcL (0.6-4.6); Lymphocytes % 20.2 %; Mean Corpuscular HGB Conc 31.7 g/dL (31.6-35.5); Mean Corpuscular Hemoglobin 29.6 pg (28.0-33.3); Mean Corpuscular Volume 93.4 fL (83.0-100.0); Mean Platelet Volume 12.6 fL (9.4-12.4); Monocytes # 0.9 K/mcL (0.0-1.3); Monocytes % 8.6 %; Neutrophils # 7.5 K/mcL (1.6-8.9); Platelet Count 146 K/mcL (140-400); Red Blood Count 4.09 M/mcL (3.82-4.97); Red Cell Distribution Width 13.5 % (11.5-14.5); White Blood Count 10.7 K/mcL (4.3-11.1)
[2022-01-06 03:12] LABS: Calcium 10.2 mg/dL (8.6-10.3); Potassium 3.8 mEq/L (3.5-5.1)
[2022-01-06] MEDS ORDERED: Colistin (Colistimethate) 120 MG in 0.9 % Sodium Chloride 50 ML IVPB SCH (04:00)
[2022-01-06] MEDS ORDERED: Colistin (Colistimethate) 150 MG in 0.9 % Sodium Chloride 50 ML IVPB SCH (04:00)
[2022-01-06] MEDS: Insulin LISPRO 300 UNITS/3 ML VIAL SUBQ SCH ×4 (08:14→20:52)
[2022-01-06] MEDS: Loratadine 10 MG TABLET PO SCH (08:29)
[2022-01-06] MEDS: Furosemide 20 MG TABLET PO SCH (08:29)
[2022-01-06] MEDS: Lactobacillus 1 EACH CAP.SPRINK PO SCH (08:29)
[2022-01-06] MEDS: Cholecalciferol (D-3) 1,000 UNIT (25MCG) TABLET PO SCH (08:30)
[2022-01-06] MEDS: predniSONE 10 MG TABLET PO SCH (08:30)
[2022-01-06] MEDS: Aspirin Enteric Coated 81 MG Tablet PO SCH (08:30)
[2022-01-06] MEDS: Insulin DETEMIR 100 UNIT/ML X5UNITS SUBQ SCH ×2 (08:31→20:52)
[2022-01-06] MEDS: Artificial Tears SOLN 15 ML BOTTLE BOTH EYES SCH ×2 (08:31→20:25)
[2022-01-06] MEDS: DAPTOmycin 500 MG in 0.9 % Sodium Chloride 100 ML IVPB SCH (15:12)
[2022-01-06] MEDS: Colistin (Colistimethate) 110 MG in 0.9 % Sodium Chloride 50 ML IVPB SCH (16:33)
[2022-01-07 02:50] LABS: Basophils % 0.3 %; Eosinophils # 0.1 K/mcL (0.0-0.6); Eosinophils % 1.3 %; Hematocrit 36.9 % (35.3-44.9); Hemoglobin 11.5 g/dL (11.5-15.4); Immature Granulocytes % 0.7 % (0-4); Lymphocytes % 22.3 %; Mean Corpuscular HGB Conc 31.2 g/dL (31.6-35.5); Mean Corpuscular Hemoglobin 29.5 pg (28.0-33.3); Mean Corpuscular Volume 94.6 fL (83.0-100.0); Mean Platelet Volume 11.5 fL (9.4-12.4); Monocytes % 10.9 %; Neutrophils # 5.9 K/mcL (1.6-8.9); Platelet Count 144 K/mcL (140-400); Red Cell Distribution Width 13.2 % (11.5-14.5); Segmented Neutrophils % 64.5 %; White Blood Count 9.1 K/mcL (4.3-11.1)
[2022-01-07 03:10] LABS: BUN/Creatinine Ratio 34 (6-26); Blood Urea Nitrogen 30 mg/dL (8-23); Carbon Dioxide 31 mEq/L (23-29); Chloride 104 mEq/L (98-107); Glucose 164 mg/dL (70-105); Osmolality,Calculated 300 (280-300); Potassium 3.5 mEq/L (3.5-5.1); Sodium 140 mEq/L (136-145); eGFR For African Americans > 60 (> 60); eGFR For Non-African Americans > 60 (> 60)
[2022-01-07] MEDS: Colistin (Colistimethate) 110 MG in 0.9 % Sodium Chloride 50 ML IVPB SCH (05:02)
[2022-01-07] MEDS: Insulin LISPRO 300 UNITS/3 ML VIAL SUBQ SCH ×4 (07:12→21:13)
[2022-01-07] MEDS: Artificial Tears SOLN 15 ML BOTTLE BOTH EYES SCH ×2 (09:01→21:12)
[2022-01-07] MEDS: Lactobacillus 1 EACH CAP.SPRINK PO SCH (09:02)
[2022-01-07] MEDS: predniSONE 10 MG TABLET PO SCH (09:02)
[2022-01-07] MEDS: Furosemide 20 MG TABLET PO SCH (09:02)
[2022-01-07] MEDS: Aspirin Enteric Coated 81 MG Tablet PO SCH (09:02)
[2022-01-07] MEDS: Loratadine 10 MG TABLET PO SCH (09:02)
[2022-01-07] MEDS: Cholecalciferol (D-3) 1,000 UNIT (25MCG) TABLET PO SCH (09:02)
[2022-01-07] MEDS: Insulin DETEMIR 100 UNIT/ML X5UNITS SUBQ SCH ×2 (10:19→21:43)
[2022-01-07] MEDS: DAPTOmycin 500 MG in 0.9 % Sodium Chloride 100 ML IVPB SCH (15:09)
[2022-01-07] MEDS: Colistin (Colistimethate) 130 MG in 0.9 % Sodium Chloride 50 ML IVPB SCH (18:05)
[2022-01-08 03:01] LABS: Basophils # 0.1 K/mcL (0.0-0.2); Basophils % 0.6 %; Eosinophils # 0.2 K/mcL (0.0-0.6); Eosinophils % 2.3 %; Hemoglobin 12.2 g/dL (11.5-15.4); Immature Granulocytes % 1.7 % (0-4); Lymphocytes # 2.4 K/mcL (0.6-4.6); Lymphocytes % 23.7 %; Mean Corpuscular HGB Conc 31.3 g/dL (31.6-35.5); Mean Corpuscular Hemoglobin 29.3 pg (28.0-33.3); Mean Corpuscular Volume 93.5 fL (83.0-100.0); Mean Platelet Volume 11.3 fL (9.4-12.4); Monocytes # 1.3 K/mcL (0.0-1.3); Monocytes % 12.4 %; Neutrophils # 6.1 K/mcL (1.6-8.9); Platelet Count 157 K/mcL (140-400); Red Blood Count 4.17 M/mcL (3.82-4.97); Red Cell Distribution Width 12.9 % (11.5-14.5); Segmented Neutrophils % 59.3 %; White Blood Count 10.3 K/mcL (4.3-11.1)
[2022-01-08 03:21] LABS: BUN/Creatinine Ratio 32 (6-26); Blood Urea Nitrogen 28 mg/dL (8-23); Calcium 10.5 mg/dL (8.6-10.3); Carbon Dioxide 35 mEq/L (23-29); Chloride 102 mEq/L (98-107); Glucose 131 mg/dL (70-105); Osmolality,Calculated 301 (280-300); Potassium 3.5 mEq/L (3.5-5.1); Sodium 142 mEq/L (136-145); eGFR For African Americans > 60 (> 60); eGFR For Non-African Americans > 60 (> 60)
[2022-01-08] MEDS: Insulin LISPRO 300 UNITS/3 ML VIAL SUBQ SCH ×3 (08:25→16:40)
[2022-01-08] MEDS: Colistin (Colistimethate) 130 MG in 0.9 % Sodium Chloride 50 ML IVPB SCH ×2 (08:31→16:27)
[2022-01-08] MEDS: Aspirin Enteric Coated 81 MG Tablet PO SCH (08:32)
[2022-01-08] MEDS: Cholecalciferol (D-3) 1,000 UNIT (25MCG) TABLET PO SCH (08:32)
[2022-01-08] MEDS: Loratadine 10 MG TABLET PO SCH (08:32)
[2022-01-08] MEDS: Artificial Tears SOLN 15 ML BOTTLE BOTH EYES SCH (08:33)
[2022-01-08] MEDS: predniSONE 10 MG TABLET PO SCH (08:33)
[2022-01-08] MEDS: Furosemide 20 MG TABLET PO SCH (08:34)
[2022-01-08] MEDS: Lactobacillus 1 EACH CAP.SPRINK PO SCH (08:34)
[2022-01-08] MEDS: Insulin DETEMIR 100 UNIT/ML X5UNITS SUBQ SCH (08:43)
[2022-01-08 13:51] LABS: Influenza A PCR Negative (Negative); Influenza B PCR Negative (Negative); Resp. Syncytial Virus PCR Negative (Negative)
[2022-01-08 14:16] LABS: SARS-CoV-2 by PCR (In House) Negative (Negative)
[2022-01-08 15:35] VITALS: BP 117/57; PULSE 80; TEMP 98.2; O2SAT 94
[2022-01-08] MEDS: DAPTOmycin 500 MG in 0.9 % Sodium Chloride 100 ML IVPB SCH (15:45)
== END 2022-01-08 18:40 | DRG 871 ==
LOC: 3NENU
PROVIDERS: ADMIT Internal Medicine; ATTEND Internal Medicine

== ENCOUNTER 2022-01-27 14:44 | Inpatient (IN) ==
[2022-01-27] MEDS ORDERED: Naloxone 0.4 MG/ML INJ IVP PRN (16:01)
[2022-01-27] MEDS ORDERED: Ondansetron 4 MG/2 ML VIAL IVP PRN (16:01)
[2022-01-27] MEDS ORDERED: D5% in Water 1,000 ML IVC PRN (16:06)
[2022-01-27] MEDS ORDERED: Dextrose 4 GM Chewable Tablets PO PRN ×2 (16:06)
[2022-01-27] MEDS ORDERED: *HR* Dextrose 50 % in Water (Syg) 50 ML SYRINGE IVP PRN (16:06)
[2022-01-27] MEDS ORDERED: Ringers Solution, Lactated 1,000 ML IVC SCH (16:15)
[2022-01-27] MEDS: *HR* Heparin 5,000 UNIT/ML VIAL SQ SCH (17:07)
[2022-01-27] MEDS: Insulin LISPRO 300 UNITS/3 ML VIAL SUBQ SCH (17:11)
[2022-01-27 19:03] LABS: Basophils # 0.1 K/mcL (0.0-0.2); Basophils % 0.6 %; Eosinophils # 0.9 K/mcL (0.0-0.6); Eosinophils % 9.9 %; Hematocrit 33.4 % (35.3-44.9); Hemoglobin 10.2 g/dL (11.5-15.4); Immature Granulocytes % 0.6 % (0-4); Lymphocytes # 2.2 K/mcL (0.6-4.6); Lymphocytes % 25.2 %; Mean Corpuscular HGB Conc 30.5 g/dL (31.6-35.5); Mean Corpuscular Hemoglobin 29.7 pg (28.0-33.3); Mean Corpuscular Volume 97.4 fL (83.0-100.0); Monocytes # 1.2 K/mcL (0.0-1.3); Monocytes % 13.6 %; Neutrophils # 4.3 K/mcL (1.6-8.9); Platelet Count 183 K/mcL (140-400); Red Blood Count 3.43 M/mcL (3.82-4.97); Red Cell Distribution Width 13.8 % (11.5-14.5); Segmented Neutrophils % 50.1 %; White Blood Count 8.6 K/mcL (4.3-11.1)
[2022-01-27 19:09] LABS: INR 2.1; Prothrombin Time 23.2 Seconds (9.4-12.1)
[2022-01-27 19:12] LABS: Activated Partial Thrombo Time 33.2 Seconds (26.0-36.0)
[2022-01-27 19:40] LABS: Calcium 11.2 mg/dL (8.6-10.3); Magnesium 1.4 mg/dL (1.6-2.6); Phosphorous 4.5 mg/dL (2.7-4.5)
[2022-01-27 22:30] LABS: Bacteria,Urine Few per hpf (None-Few); Bilirubin,Urine Negative (Negative); Blood,Urine Small (Negative); Budding Yeast,Urine Few per hpf (None Seen); Clarity,Urine Clear (Clear); Color,Urine Light-Yellow (Yellow); Glucose,Urine (UA) Normal (Normal); Ketones,Urine Negative (Negative); Leukocyte Esterase,Urine Moderate (Negative); Mucus,Urine Few per lpf (None-Few); Nitrite,Urine Negative (Negative); Protein,Urine 70 mg/dL (Neg-Trace); RBC,Urine 0-3 per hpf (0-3); Specific Gravity,Urine 1.013 (1.010-1.025); Urobilinogen,Urine Normal (Normal); WBC,Urine 50-100 per hpf (0-3)
[2022-01-28] MEDS: *HR* Heparin 5,000 UNIT/ML VIAL SQ SCH (06:15)
[2022-01-28 06:41] LABS: Basophils # 0.1 K/mcL (0.0-0.2); Basophils % 0.6 %; Eosinophils # 0.9 K/mcL (0.0-0.6); Eosinophils % 11.1 %; Hematocrit 33.8 % (35.3-44.9); Hemoglobin 10.1 g/dL (11.5-15.4); Immature Granulocytes % 0.5 % (0-4); Lymphocytes # 2.2 K/mcL (0.6-4.6); Mean Corpuscular HGB Conc 29.9 g/dL (31.6-35.5); Mean Corpuscular Hemoglobin 29.4 pg (28.0-33.3); Mean Corpuscular Volume 98.5 fL (83.0-100.0); Mean Platelet Volume 11.9 fL (9.4-12.4); Monocytes % 12.6 %; Neutrophils # 3.6 K/mcL (1.6-8.9); Platelet Count 189 K/mcL (140-400); Red Blood Count 3.43 M/mcL (3.82-4.97); Red Cell Distribution Width 13.7 % (11.5-14.5); Segmented Neutrophils % 46.2 %; White Blood Count 7.7 K/mcL (4.3-11.1)
[2022-01-28 06:44] LABS: INR 2.3; Prothrombin Time 25.2 Seconds (9.4-12.1)
[2022-01-28 07:02] LABS: Calcium 11.5 mg/dL (8.6-10.3); Magnesium 1.4 mg/dL (1.6-2.6); Phosphorous 3.9 mg/dL (2.7-4.5); Potassium 3.8 mEq/L (3.5-5.1)
[2022-01-28] MEDS: Warfarin perPT PO SCH ×2 (07:21→19:19)
[2022-01-28] MEDS: Aspirin Enteric Coated 81 MG Tablet PO SCH (09:43)
[2022-01-28] MEDS: Cholecalciferol (D-3) 1,000 UNIT (25MCG) TABLET PO SCH (09:43)
[2022-01-28] MEDS: Insulin LISPRO 300 UNITS/3 ML VIAL SUBQ SCH ×3 (10:04→17:13)
[2022-01-28] MEDS: Cefepime HCl 1,000 MG in 0.9 % Sodium Chloride 10 ML IVP SCH (12:24)
[2022-01-28] MEDS ORDERED: GuaiFENesin Liq 200 MG/10 ML UDC PO PRN (12:41)
[2022-01-28] MEDS ORDERED: Sennosides 8.6 MG TABLET PO PRN (12:41)
[2022-01-28] MEDS ORDERED: Colistin (Colistimethate) 150 MG VIAL IVPB SCH (13:00)
[2022-01-28] MEDS ORDERED: Cefepime HCl 1,000 MG in 0.9 % Sodium Chloride 10 ML IVP SCH (16:05)
[2022-01-28 17:11] LABS: Protein/Creatinine Ratio,Urine 3.24 mg/mg (0.00-0.20); Sodium, Urine 35.9 mEq/L
[2022-01-28] MEDS ORDERED: *HR* Warfarin 4 MG TABLET PO ONE (18:00)
[2022-01-28] MEDS ORDERED: NON-FORMULARY MEDICATION 1 EACH EACH (Omega-3/Dha/Epa/Fish Oil [Fish Oil 1,000 Mg Softgel] PO SCH (21:00)
[2022-01-29] MEDS: Cefepime HCl 1,000 MG in 0.9 % Sodium Chloride 10 ML IVP SCH ×2 (01:25→13:40)
[2022-01-29 07:04] LABS: Basophils # 0.1 K/mcL (0.0-0.2); Basophils % 0.7 %; Eosinophils # 0.9 K/mcL (0.0-0.6); Eosinophils % 13.3 %; Hemoglobin 10.3 g/dL (11.5-15.4); Immature Granulocytes % 0.7 % (0-4); Lymphocytes # 2.3 K/mcL (0.6-4.6); Lymphocytes % 32.4 %; Mean Corpuscular HGB Conc 30.3 g/dL (31.6-35.5); Mean Corpuscular Hemoglobin 29.9 pg (28.0-33.3); Mean Corpuscular Volume 98.8 fL (83.0-100.0); Mean Platelet Volume 12.3 fL (9.4-12.4); Monocytes % 14.7 %; Neutrophils # 2.7 K/mcL (1.6-8.9); Platelet Count 194 K/mcL (140-400); Red Blood Count 3.44 M/mcL (3.82-4.97); Red Cell Distribution Width 13.8 % (11.5-14.5); Segmented Neutrophils % 38.2 %
[2022-01-29 07:16] LABS: INR 1.8; Prothrombin Time 20.4 Seconds (9.4-12.1)
[2022-01-29 07:29] LABS: Calcium 11.7 mg/dL (8.6-10.3)
[2022-01-29 08:24] LABS: Magnesium 1.8 mg/dL (1.6-2.6)
[2022-01-29] MEDS ORDERED: [UNRECOGNIZED DRUG - OTHER] TD SCH (09:00)
[2022-01-29] MEDS ORDERED: Cyanocobalamin (B-12) 1,000 MCG/ML VIAL IM SCH (09:00)
[2022-01-29] MEDS: Vitamin B Complex/Vit C/Vit E 1 EACH TABLET PO SCH (09:02)
[2022-01-29] MEDS: Cholecalciferol (D-3) 1,000 UNIT (25MCG) TABLET PO SCH (09:02)
[2022-01-29] MEDS: Aspirin Enteric Coated 81 MG Tablet PO SCH ×2 (09:02→09:07)
[2022-01-29] MEDS: Insulin LISPRO 300 UNITS/3 ML VIAL SUBQ SCH ×3 (09:08→16:13)
[2022-01-29] MEDS: Acetaminophen 325 MG TABLET PO PRN (10:37)
[2022-01-29] MEDS: Sennosides 8.6 MG TABLET PO SCH (13:30)
[2022-01-29] MEDS ORDERED: *HR* Warfarin 2 MG TABLET PO ONE (18:00)
[2022-01-29] MEDS: Warfarin perPT PO SCH (19:15)
[2022-01-30 06:35] LABS: Prothrombin Time 21.8 Seconds (9.4-12.1)
[2022-01-30 06:43] LABS: Calcium 11.7 mg/dL (8.6-10.3); Potassium 3.9 mEq/L (3.5-5.1)
[2022-01-30] MEDS: Cefepime HCl 1,000 MG in 0.9 % Sodium Chloride 10 ML IVP SCH ×2 (06:52→13:44)
[2022-01-30] MEDS: Vitamin B Complex/Vit C/Vit E 1 EACH TABLET PO SCH (08:07)
[2022-01-30] MEDS: Sennosides 8.6 MG TABLET PO SCH (08:07)
[2022-01-30] MEDS: Aspirin Enteric Coated 81 MG Tablet PO SCH (08:07)
[2022-01-30] MEDS: Cholecalciferol (D-3) 1,000 UNIT (25MCG) TABLET PO SCH (08:07)
[2022-01-30] MEDS: Insulin LISPRO 300 UNITS/3 ML VIAL SUBQ SCH ×3 (08:08→18:15)
[2022-01-30] MEDS: Acetaminophen 325 MG TABLET PO PRN (13:15)
[2022-01-30] MEDS ORDERED: Lidocaine 1% 20 ML MDV ID ONE (13:35)
[2022-01-30] MEDS ORDERED: *HR* Alteplase (Cathflo) 2 MG VIAL IVP ONE (14:17)
[2022-01-30] MEDS ORDERED: *HR* Warfarin 4 MG TABLET PO ONE (18:00)
[2022-01-30] MEDS: Warfarin perPT PO SCH (18:27)
[2022-01-31] MEDS: Cefepime HCl 1,000 MG in 0.9 % Sodium Chloride 10 ML IVP SCH ×2 (00:47→11:52)
[2022-01-31 06:35] LABS: INR 2.4; Prothrombin Time 26.2 Seconds (9.4-12.1)
[2022-01-31 06:37] LABS: Calcium 11.8 mg/dL (8.6-10.3); Potassium 4.1 mEq/L (3.5-5.1)
[2022-01-31] MEDS: Vitamin B Complex/Vit C/Vit E 1 EACH TABLET PO SCH (08:27)
[2022-01-31] MEDS: Sennosides 8.6 MG TABLET PO SCH (08:27)
[2022-01-31] MEDS: Aspirin Enteric Coated 81 MG Tablet PO SCH (08:27)
[2022-01-31] MEDS: Cholecalciferol (D-3) 1,000 UNIT (25MCG) TABLET PO SCH (08:28)
[2022-01-31] MEDS: Insulin LISPRO 300 UNITS/3 ML VIAL SUBQ SCH ×3 (08:28→18:09)
[2022-01-31 08:57] LABS: Vitamin D 25 Hydroxy 39 ng/mL (30-80)
[2022-01-31 08:58] LABS: Vitamin B12 865 pg/mL (250-1100)
[2022-01-31] MEDS ORDERED: polyethylene glycoL 3350 17 GM POWD.PACK PO SCH (16:45)
[2022-01-31] MEDS ORDERED: *HR* Warfarin 4 MG TABLET PO ONE (18:00)
[2022-01-31] MEDS: Warfarin perPT PO SCH (18:14)
[2022-01-31] MEDS: polyethylene glycoL 3350 17 GM POWD.PACK PO SCH (18:16)
[2022-01-31] MEDS: Cefepime HCl 2,000 MG in 0.9 % Sodium Chloride 10 ML IVP SCH (23:01)
[2022-02-01 05:22] LABS: INR 2.3; Prothrombin Time 25.7 Seconds (9.4-12.1)
[2022-02-01 05:28] LABS: Calcium 11.3 mg/dL (8.6-10.3); Potassium 4.1 mEq/L (3.5-5.1)
[2022-02-01] MEDS: Sennosides 8.6 MG TABLET PO SCH (08:41)
[2022-02-01] MEDS: polyethylene glycoL 3350 17 GM POWD.PACK PO SCH (08:41)
[2022-02-01] MEDS: Aspirin Enteric Coated 81 MG Tablet PO SCH (08:41)
[2022-02-01] MEDS: Vitamin B Complex/Vit C/Vit E 1 EACH TABLET PO SCH (08:42)
[2022-02-01] MEDS: Insulin LISPRO 300 UNITS/3 ML VIAL SUBQ SCH ×3 (08:46→17:36)
[2022-02-01] MEDS: Acetaminophen 325 MG TABLET PO PRN (10:10)
[2022-02-01] MEDS: Cefepime HCl 2,000 MG in 0.9 % Sodium Chloride 10 ML IVP SCH ×2 (10:11→23:49)
[2022-02-01] MEDS: Warfarin perPT PO SCH (17:36)
[2022-02-01] MEDS ORDERED: *HR* Warfarin 4 MG TABLET PO ONE (18:00)
[2022-02-02 05:49] LABS: INR 2.5; Prothrombin Time 27.8 Seconds (9.4-12.1)
[2022-02-02 06:07] LABS: Calcium 11.6 mg/dL (8.6-10.3); Potassium 4.3 mEq/L (3.5-5.1)
[2022-02-02] MEDS: Vitamin B Complex/Vit C/Vit E 1 EACH TABLET PO SCH (09:27)
[2022-02-02] MEDS: Sennosides 8.6 MG TABLET PO SCH (09:27)
[2022-02-02] MEDS: Insulin LISPRO 300 UNITS/3 ML VIAL SUBQ SCH ×3 (09:27→17:09)
[2022-02-02] MEDS: Aspirin Enteric Coated 81 MG Tablet PO SCH (09:28)
[2022-02-02] MEDS: polyethylene glycoL 3350 17 GM POWD.PACK PO SCH (09:28)
[2022-02-02] MEDS: Cefepime HCl 2,000 MG in 0.9 % Sodium Chloride 10 ML IVP SCH ×2 (12:31→23:04)
[2022-02-02] MEDS: Lactulose Oral Soln 20 GM/30 ML UDC PO SCH ×2 (15:55→21:13)
[2022-02-02] MEDS: Warfarin perPT PO SCH (17:10)
[2022-02-02] MEDS ORDERED: *HR* Warfarin 2 MG TABLET PO ONE (18:00)
[2022-02-03 03:36] LABS: INR 3.3; Prothrombin Time 36.1 Seconds (9.4-12.1)
[2022-02-03 03:41] LABS: Calcium 11.6 mg/dL (8.6-10.3); Potassium 4.1 mEq/L (3.5-5.1)
[2022-02-03] MEDS: Vitamin B Complex/Vit C/Vit E 1 EACH TABLET PO SCH (08:39)
[2022-02-03] MEDS: Sennosides 8.6 MG TABLET PO SCH (08:41)
[2022-02-03] MEDS: Aspirin Enteric Coated 81 MG Tablet PO SCH (08:41)
[2022-02-03] MEDS: Insulin LISPRO 300 UNITS/3 ML VIAL SUBQ SCH ×3 (08:41→18:01)
[2022-02-03] MEDS: Lactulose Oral Soln 20 GM/30 ML UDC PO SCH ×2 (08:41→19:31)
[2022-02-03] MEDS: polyethylene glycoL 3350 17 GM POWD.PACK PO SCH (08:42)
[2022-02-03] MEDS: Cefepime HCl 2,000 MG in 0.9 % Sodium Chloride 10 ML IVP SCH ×2 (11:40→23:51)
[2022-02-03 18:34] LABS: Adenovirus Not Detected (Not Detect); Bordetella Pertussis Not Detected (Not Detect); Chlamydophila pneumoniae Not Detected (Not Detect); Coronavirus 229E Not Detected (Not Detect); Coronavirus HKU1 Not Detected (Not Detect); Coronavirus NL63 Not Detected (Not Detect); Coronavirus OC43 Not Detected (Not Detect); Human Metapneumovirus Not Detected (Not Detect); Human Rhinovirus/Enterovirus Not Detected (Not Detect); Influenza A Subtype 2009 H1 Not Detected (Not Detect); Influenza B Not Detected (Not Detect); Mycoplasma pneumoniae Not Detected (Not Detect); Parainfluenza Virus 1 Not Detected (Not Detect); Parainfluenza Virus 2 Not Detected (Not Detect); Parainfluenza Virus 3 Not Detected (Not Detect); Parainfluenza Virus 4 Not Detected (Not Detect); Respiratory Syncytial Virus Not Detected (Not Detect); SARS-CoV-2 Not Detected (Not Detect)
[2022-02-03 20:57] VITALS: BP 104/54; PULSE 80; TEMP 98; O2SAT 95
== END 2022-02-04 03:20 | DRG 673 ==
LOC: 3ANU → SUATTDRO 15:18
PROVIDERS: ADMIT Hospitalist; ATTEND Hospitalist

== ENCOUNTER 2022-02-10 13:51 | Inpatient (IN) ==
[2022-02-10] MEDS ORDERED: Naloxone 0.4 MG/ML INJ IVP PRN (16:03)
[2022-02-10 17:06] LABS: Calcium 11.5 mg/dL (8.6-10.3)
[2022-02-10 17:13] LABS: Red Cell Distribution Width 14.6 % (11.5-14.5)
[2022-02-10 17:15] LABS: Basophils # 0.1 K/mcL (0.0-0.2); Basophils % 0.6 %; Eosinophils # 0.2 K/mcL (0.0-0.6); Eosinophils % 1.5 %; Hematocrit 40.5 % (35.3-44.9); Hemoglobin 12.6 g/dL (11.5-15.4); Lymphocytes # 2.1 K/mcL (0.6-4.6); Lymphocytes % 17.4 %; Mean Corpuscular HGB Conc 31.1 g/dL (31.6-35.5); Mean Corpuscular Hemoglobin 30.1 pg (28.0-33.3); Mean Corpuscular Volume 96.7 fL (83.0-100.0); Mean Platelet Volume 13.6 fL (9.4-12.4); Monocytes % 16.5 %; Neutrophils # 7.8 K/mcL (1.6-8.9); Platelet Count 145 K/mcL (140-400); Red Blood Count 4.19 M/mcL (3.82-4.97); White Blood Count 12.3 K/mcL (4.3-11.1)
[2022-02-10] MEDS ORDERED: 0.9 % Sodium Chloride 1,000 ML IVC ONE (17:18)
[2022-02-10] MEDS ORDERED: Cefepime HCl 1,000 MG in 0.9 % Sodium Chloride 10 ML IVP SCH (18:00)
[2022-02-10] MEDS ORDERED: D5% in Water 1,000 ML IVC PRN (18:03)
[2022-02-10] MEDS ORDERED: *HR* Dextrose 50 % in Water (Syg) 50 ML SYRINGE IVP PRN (18:03)
[2022-02-10] MEDS ORDERED: Dextrose 4 GM Chewable Tablets PO PRN ×2 (18:03)
[2022-02-10] MEDS ORDERED: Acetaminophen 325 MG TABLET PO PRN (18:08)
[2022-02-10] MEDS ORDERED: Insulin DETEMIR 100 UNIT/ML X5UNITS SUBQ SCH (21:00)
[2022-02-10 21:09] LABS: Prothrombin Time 22.1 Seconds (9.4-12.1)
[2022-02-10] MEDS ORDERED: *HR* Warfarin 4 MG TABLET PO ONE (21:30)
[2022-02-11 04:16] LABS: Prothrombin Time 21.8 Seconds (9.4-12.1)
[2022-02-11 05:05] LABS: Sodium, Urine 25.3 mEq/L
[2022-02-11 05:11] LABS: Bacteria,Urine Few per hpf (None-Few); Bilirubin,Urine Negative (Negative); Blood,Urine Large (Negative); Clarity,Urine Ex.Turbid (Clear); Color,Urine Yellow (Yellow); Glucose,Urine (UA) Normal (Normal); Ketones,Urine 10 mg/dL (Negative); Leukocyte Esterase,Urine Large (Negative); Nitrite,Urine Negative (Negative); PH,Urine 5.5 pH Units (5.0-8.0); Protein,Urine 200 mg/dL (Neg-Trace); RBC,Urine TNTC per hpf (0-3); Specific Gravity,Urine 1.023 (1.010-1.025); Urobilinogen,Urine Normal (Normal); WBC,Urine TNTC per hpf (0-3)
[2022-02-11 07:16] VITALS: BP 100/63; PULSE 87; TEMP 98; O2SAT 98
[2022-02-11] MEDS: Insulin LISPRO 300 UNITS/3 ML VIAL SUBQ SCH ×2 (08:36→12:57)
[2022-02-11 08:48] LABS: Basophils % 0.4 %; Hemoglobin 11.7 g/dL (11.5-15.4); Mean Corpuscular Volume 94.4 fL (83.0-100.0); Platelet Count 161 K/mcL (140-400)
[2022-02-11 08:49] LABS: Basophils # 0.1 K/mcL (0.0-0.2); Eosinophils # 0.4 K/mcL (0.0-0.6); Eosinophils % 3.7 %; Hematocrit 37.2 % (35.3-44.9); Immature Granulocytes % 0.7 % (0-4); Immature Platelets 11.4 % (1.1-6.1); Lymphocytes # 2.4 K/mcL (0.6-4.6); Lymphocytes % 20.6 %; Mean Corpuscular HGB Conc 31.5 g/dL (31.6-35.5); Mean Corpuscular Hemoglobin 29.7 pg (28.0-33.3); Mean Platelet Volume 13.4 fL (9.4-12.4); Monocytes # 2.2 K/mcL (0.0-1.3); Monocytes % 18.7 %; Neutrophils # 6.5 K/mcL (1.6-8.9); Red Blood Count 3.94 M/mcL (3.82-4.97); Red Cell Distribution Width 14.6 % (11.5-14.5); Segmented Neutrophils % 55.9 %; White Blood Count 11.6 K/mcL (4.3-11.1)
[2022-02-11] MEDS ORDERED: *HR* HYDROmorphone (PF) 1 MG/ML SYRINGE IVP ONE ×2 (08:58→09:31)
[2022-02-11 09:07] LABS: Magnesium 2.1 mg/dL (1.6-2.6); Phosphorous 5.8 mg/dL (2.7-4.5); Potassium 4.4 mEq/L (3.5-5.1)
[2022-02-11] MEDS ORDERED: Morphine Sulfate Oral CONC 10 MG/0.5 ML ORAL.SYG SL PRN (09:14)
[2022-02-11] MEDS ORDERED: *HR* FentaNYL PATCH 12 MCG PATCH TD SCH (09:15)
[2022-02-11 09:23] LABS: Platelet Estimate Normal (Normal)
[2022-02-11 10:00] LABS: Protein/Creatinine Ratio,Urine 2.91 mg/mg (0.00-0.20)
[2022-02-11] MEDS ORDERED: Warfarin perPT PO PRN (18:00)
[2022-02-11] MEDS ORDERED: *HR* Warfarin 4 MG TABLET PO ONE (18:00)
[2022-02-11] MEDS ORDERED: Cefepime HCl 1,000 MG in 0.9 % Sodium Chloride 10 ML IVP SCH (18:00)
== END 2022-02-11 13:47 | disposition hospice, inpatient (51) | DRG 871 ==
LOC: 2ANU → SUATTDRO 16:35
PROVIDERS: ADMIT Internal Medicine; ATTEND Student in an Organized Health Care Education/Training Program